=== PATIENT | female | born 1940 | race Caucasian/White ===

== ENCOUNTER 2017-05-30 13:28 | Inpatient (IN) | payer MEDICARE, MEDICAID ==
[~2017-05-30] VITALS: Ht 154.9 cm; Wt 63.5 kg
[~2017-05-30 13:28] MED LIST: BENA10TA2 PO; BENZ1TAB7 PO; CARV12.52 PO; CELE200C PO; DIVA500T2 PO; FOLI1TAB16 PO; IBUP-1955 PO; LORA1TAB PO; OLAN10TA3 PO; THIA100T70 PO
[2017-05-30] MEDS ORDERED: OLANZAPINE 5 MG TABLET ONE (14:28)
[2017-05-30] MEDS ORDERED: HYDROCODONE/APAP 10/325MG 1 EA TABLET ONE (14:28)
[2017-05-30] MEDS ORDERED: ONDANSETRON 4 MG TAB.RAPDIS ONE (14:28)
[2017-05-30] MEDS ORDERED: HYDROCODONE/APAP 10/325MG 1 EA TABLET PO ONE (14:30)
[2017-05-30] MEDS ORDERED: ONDANSETRON 4 MG TAB.RAPDIS SL ONE (14:30)
[2017-05-30] MEDS ORDERED: OLANZAPINE 5 MG TABLET PO ONE (14:30)
[2017-05-30 14:34] LABS: BASOPHILS # (AUTO) 0.2 /CMM (0.0-0.2); BASOPHILS % (AUTO) 2.1 % (0.0-2.0); EOSINOPHILS % (AUTO) 0.2 % (0.0-6.0); HEMATOCRIT 37 % (33-45); HEMOGLOBIN 12.5 g/dL (11.5-14.8); LYMPHOCYTES # (AUTO) 1.3 /CMM (0.8-4.8); LYMPHOCYTES % (AUTO) 16.2 % (20.0-44.0); MEAN CORPUSCULAR HEMOGLOBIN 30 PG (26.0-33.0); MEAN CORPUSCULAR HGB CONC 34 g/dl (31.0-36.0); MEAN CORPUSCULAR VOLUME 89 fL (82-100); MONOCYTES # (AUTO) 0.8 /CMM (0.1-1.30); MONOCYTES % (AUTO) 9.7 % (2.0-12.0); NEUTROPHILS # (AUTO) 5.6 /CMM (1.8-8.9); NEUTROPHILS % (AUTO) 71.8 % (43.0-81.0); PLATELET COUNT (AUTO) 293 /CMM (150-450); RDW COEFFICIENT OF VARIATION 13.4 (11.5-15.0); RED BLOOD CELL COUNT(AUTO) 4.15 MIL/uL (4.0-5.2); WHITE BLOOD COUNT (AUTO) 7.9 K/uL (4.3-11.0)
[2017-05-30 14:48] LABS: ALANINE AMINOTRANSFERASE 13 U/L (12-78); ALBUMIN 3.7 g/dL (3.4-5.0); ALCOHOL, BLOOD 4 mg/dL (0-0); ALKALINE PHOSPHATASE 91 U/L (46-116); ASPARTATE AMINOTRANSFERASE 20 U/L (15-37); BILIRUBIN,DIRECT 0.1 mg/dL (0.0-0.2); BILIRUBIN,TOTAL 0.6 mg/dL (0.2-1.0); CALCIUM, SERUM 9.3 mg/dL (8.5-10.1); CARBON DIOXIDE 25 mmol/L (21-32); CHLORIDE 105 mmol/L (98-107); CREATININE 0.6 mg/dL (0.6-1.3); GLUCOSE 125 mg/dL (74-106); POTASSIUM 3.7 mmol/L (3.5-5.1); SODIUM SERUM 142 mmol/L (136-145); TOTAL PROTEIN, SERUM 6.9 g/dL (6.4-8.2); UREA NITROGEN, BLOOD 16 mg/dL (7-18)
[2017-05-30 14:49] LABS: ACETAMINOPHEN 0 ug/ml (10-30); SALICYLATE 0.9 mg/dL (2.8-20.0)
[2017-05-30] MEDS ORDERED: LORAZEPAM 1 MG TABLET ONE (15:27)
[2017-05-30] MEDS ORDERED: LORAZEPAM 1 MG TABLET PO ONE (15:30)
[2017-05-30] MEDS ORDERED: ASPI-992 PO (17:00)
[2017-05-30] MEDS ORDERED: FAMO-131 PO (17:00)
[2017-05-30] MEDS ORDERED: DULO60CA45 PO (17:00)
[2017-05-30] MEDS ORDERED: FERR-58 PO (17:00)
[2017-05-30] MEDS ORDERED: CLON0.1T PO (17:00)
[2017-05-30] MEDS ORDERED: HYDR-4076 PO (17:00)
[2017-05-30] MEDS ORDERED: SENN-18 PO (17:00)
[2017-05-30] MEDS ORDERED: PANT40TA4 PO (17:00)
[2017-05-30 18:54] VITALS: BP 128/87
[2017-05-30] MEDS ORDERED: MAGNESIUM HYDROXIDE 30 ML UDC PO PRN (19:00)
[2017-05-30] MEDS ORDERED: MAG HYDROX/AL HYDROX/SIMETH 30 ML UDC PO PRN (19:00)
[2017-05-30] MEDS: LORAZEPAM 0.5 MG TABLET PO PRN (20:47)
[2017-05-30 20:59] VITALS: BP 151/54
[2017-05-31] MEDS: TEMAZEPAM 7.5 MG CAPSULE PO PRN ×2 (00:06→21:34)
[2017-05-31 08:00] VITALS: BP 144/78
[2017-05-31] MEDS: ASPIRIN 325 MG TABLET PO SCH (08:30)
[2017-05-31] MEDS: hydrALAZINE HCL 25 MG TABLET PO SCH ×3 (08:31→17:08)
[2017-05-31] MEDS: FOLIC ACID 1 MG TABLET PO SCH (08:31)
[2017-05-31] MEDS: SENNOSIDES 8.6 MG TABLET PO SCH (08:31)
[2017-05-31] MEDS: FAMOTIDINE (20 MG) 20 MG TABLET PO SCH (08:31)
[2017-05-31] MEDS: PANTOPRAZOLE 40 MG TABLET.DR PO SCH (08:31)
[2017-05-31] MEDS: FERROUS SULFATE (325 MG) 325 MG/TAB TABLET PO SCH ×3 (08:31→17:08)
[2017-05-31 09:55] LABS: ALANINE AMINOTRANSFERASE 18 U/L (12-78); ALBUMIN 3.6 g/dL (3.4-5.0); ALKALINE PHOSPHATASE 92 U/L (46-116); ASPARTATE AMINOTRANSFERASE 20 U/L (15-37); BILIRUBIN,TOTAL 0.4 mg/dL (0.2-1.0); CARBON DIOXIDE 31 mmol/L (21-32); CHLORIDE 106 mmol/L (98-107); CREATININE 0.6 mg/dL (0.6-1.3); GLUCOSE 105 mg/dL (74-106); POTASSIUM 4.1 mmol/L (3.5-5.1); SODIUM SERUM 143 mmol/L (136-145); UREA NITROGEN, BLOOD 16 mg/dL (7-18)
[2017-05-31] MEDS: LORAZEPAM 0.5 MG TABLET PO PRN (11:51)
[2017-05-31 12:58] LABS: CHOLESTEROL 176 mg/dL (<200); HDL CHOLESTEROL 77 mg/dL (40-60); LDL 88 mg/dL (0-99); TRIGLYCERIDES 64 mg/dL (30-150)
[2017-05-31] MEDS: ACETAMINOPHEN 325 MG TABLET PO PRN ×2 (13:47→19:39)
[2017-05-31] MEDS: OLANZAPINE 10 MG TABLET PO SCH ×2 (14:30→17:07)
[2017-05-31] MEDS ORDERED: OLANZAPINE 10 MG VIAL IM STA (14:39)
[2017-05-31 16:09] VITALS: BP 157/84
[2017-05-31] MEDS: CLONIDINE HCL 0.1 MG TABLET PO PRN (19:40)
[2017-05-31 19:46] VITALS: BP 166/75
[2017-06-01] MEDS: ACETAMINOPHEN 325 MG TABLET PO PRN ×3 (04:47→23:45)
[2017-06-01 08:00] VITALS: BP 152/78
[2017-06-01] MEDS: ASPIRIN 325 MG TABLET PO SCH (09:43)
[2017-06-01] MEDS: hydrALAZINE HCL 25 MG TABLET PO SCH ×3 (09:44→16:34)
[2017-06-01] MEDS: FERROUS SULFATE (325 MG) 325 MG/TAB TABLET PO SCH ×3 (09:44→16:35)
[2017-06-01] MEDS: OLANZAPINE 10 MG TABLET PO SCH ×2 (09:44→16:34)
[2017-06-01] MEDS: DULOXETINE HCL 30 MG CAPSULE.DR PO SCH (09:44)
[2017-06-01] MEDS: PANTOPRAZOLE 40 MG TABLET.DR PO SCH (09:45)
[2017-06-01] MEDS: FOLIC ACID 1 MG TABLET PO SCH (09:45)
[2017-06-01] MEDS: FAMOTIDINE (20 MG) 20 MG TABLET PO SCH (09:45)
[2017-06-01] MEDS: SENNOSIDES 8.6 MG TABLET PO SCH (09:45)
[2017-06-01] MEDS: HYDROCODONE/APAP 5/325MG 1 EACH TABLET PO PRN ×2 (13:13→19:49)
[2017-06-01] MEDS: LORAZEPAM 0.5 MG TABLET PO PRN (14:25)
[2017-06-01 16:00] VITALS: BP 145/71
[2017-06-01 20:00] VITALS: BP 149/80
[2017-06-01] MEDS: TEMAZEPAM 7.5 MG CAPSULE PO PRN (21:33)
[2017-06-02 08:00] VITALS: BP 185/75
[2017-06-02] MEDS: FOLIC ACID 1 MG TABLET PO SCH (08:36)
[2017-06-02] MEDS: OLANZAPINE 10 MG TABLET PO SCH ×2 (08:36→17:09)
[2017-06-02] MEDS: FERROUS SULFATE (325 MG) 325 MG/TAB TABLET PO SCH ×3 (08:37→17:09)
[2017-06-02] MEDS: ASPIRIN 325 MG TABLET PO SCH (08:37)
[2017-06-02] MEDS: FAMOTIDINE (20 MG) 20 MG TABLET PO SCH (08:37)
[2017-06-02] MEDS: hydrALAZINE HCL 25 MG TABLET PO SCH ×3 (08:37→17:09)
[2017-06-02] MEDS: SENNOSIDES 8.6 MG TABLET PO SCH (08:37)
[2017-06-02] MEDS: PANTOPRAZOLE 40 MG TABLET.DR PO SCH (08:38)
[2017-06-02] MEDS: DULOXETINE HCL 30 MG CAPSULE.DR PO SCH (08:38)
[2017-06-02] MEDS: LORAZEPAM 0.5 MG TABLET PO PRN ×2 (08:38→15:17)
[2017-06-02] MEDS: HYDROCODONE/APAP 5/325MG 1 EACH TABLET PO PRN ×3 (09:50→23:33)
[2017-06-02] MEDS: ACETAMINOPHEN 325 MG TABLET PO PRN ×2 (14:27→20:52)
[2017-06-02 16:08] VITALS: BP 156/88
[2017-06-02 20:00] VITALS: BP 157/99
[2017-06-02] MEDS: TEMAZEPAM 7.5 MG CAPSULE PO PRN (20:52)
[2017-06-03 08:08] VITALS: BP 157/96
[2017-06-03] MEDS: LORAZEPAM 0.5 MG TABLET PO PRN ×2 (08:59→15:04)
[2017-06-03] MEDS: SENNOSIDES 8.6 MG TABLET PO SCH ×2 (08:59→18:00)
[2017-06-03] MEDS: ASPIRIN 325 MG TABLET PO SCH (08:59)
[2017-06-03] MEDS: PANTOPRAZOLE 40 MG TABLET.DR PO SCH (09:00)
[2017-06-03] MEDS: FERROUS SULFATE (325 MG) 325 MG/TAB TABLET PO SCH ×3 (09:00→18:00)
[2017-06-03] MEDS: OLANZAPINE 10 MG TABLET PO SCH ×2 (09:00→18:00)
[2017-06-03] MEDS: hydrALAZINE HCL 25 MG TABLET PO SCH ×3 (09:00→18:01)
[2017-06-03] MEDS: FAMOTIDINE (20 MG) 20 MG TABLET PO SCH (09:00)
[2017-06-03] MEDS: DULOXETINE HCL 30 MG CAPSULE.DR PO SCH (09:00)
[2017-06-03] MEDS: FOLIC ACID 1 MG TABLET PO SCH (12:25)
[2017-06-03] MEDS: HYDROCODONE/APAP 5/325MG 1 EACH TABLET PO PRN ×2 (12:26→21:05)
[2017-06-03] MEDS: ACETAMINOPHEN 325 MG TABLET PO PRN (15:04)
[2017-06-03 16:06] VITALS: BP 153/98
[2017-06-03 20:00] VITALS: BP 143/73
[2017-06-03] MEDS: TEMAZEPAM 7.5 MG CAPSULE PO PRN (21:38)
[2017-06-04 00:01] VITALS: BP 123/58
[2017-06-04] MEDS: HYDROCODONE/APAP 5/325MG 1 EACH TABLET PO PRN ×2 (06:57→14:29)
[2017-06-04] MEDS: FAMOTIDINE (20 MG) 20 MG TABLET PO SCH (08:27)
[2017-06-04] MEDS: PANTOPRAZOLE 40 MG TABLET.DR PO SCH (08:27)
[2017-06-04] MEDS: DULOXETINE HCL 30 MG CAPSULE.DR PO SCH (08:28)
[2017-06-04] MEDS: FERROUS SULFATE (325 MG) 325 MG/TAB TABLET PO SCH ×3 (08:28→16:43)
[2017-06-04] MEDS: FOLIC ACID 1 MG TABLET PO SCH (08:29)
[2017-06-04] MEDS: ASPIRIN 325 MG TABLET PO SCH (08:29)
[2017-06-04] MEDS: SENNOSIDES 8.6 MG TABLET PO SCH (08:29)
[2017-06-04] MEDS: OLANZAPINE 10 MG TABLET PO SCH ×2 (08:29→16:43)
[2017-06-04] MEDS: hydrALAZINE HCL 25 MG TABLET PO SCH ×3 (10:17→16:43)
[2017-06-04] MEDS: LORAZEPAM 0.5 MG TABLET PO PRN ×2 (10:41→20:41)
[2017-06-04 13:07] VITALS: BP 157/83
[2017-06-04 16:07] VITALS: BP 156/88
[2017-06-04 19:50] VITALS: BP 168/85
[2017-06-04] MEDS: TEMAZEPAM 7.5 MG CAPSULE PO PRN (22:22)
[2017-06-05 03:29] VITALS: BP 142/78
[2017-06-05 08:00] VITALS: BP 168/102
[2017-06-05] MEDS: OLANZAPINE 10 MG TABLET PO SCH ×2 (08:57→16:10)
[2017-06-05] MEDS: DULOXETINE HCL 30 MG CAPSULE.DR PO SCH (08:58)
[2017-06-05] MEDS: FOLIC ACID 1 MG TABLET PO SCH (08:58)
[2017-06-05] MEDS: FERROUS SULFATE (325 MG) 325 MG/TAB TABLET PO SCH ×3 (08:58→16:11)
[2017-06-05] MEDS: hydrALAZINE HCL 25 MG TABLET PO SCH ×3 (08:58→16:10)
[2017-06-05] MEDS: PANTOPRAZOLE 40 MG TABLET.DR PO SCH (08:58)
[2017-06-05] MEDS: ASPIRIN 325 MG TABLET PO SCH (08:58)
[2017-06-05] MEDS: FAMOTIDINE (20 MG) 20 MG TABLET PO SCH (08:59)
[2017-06-05] MEDS: SENNOSIDES 8.6 MG TABLET PO SCH (08:59)
[2017-06-05] MEDS: CLONIDINE HCL 0.1 MG TABLET PO PRN (09:03)
[2017-06-05] MEDS: HYDROCODONE/APAP 5/325MG 1 EACH TABLET PO PRN ×2 (09:03→16:45)
[2017-06-05] MEDS: LORAZEPAM 0.5 MG TABLET PO PRN ×2 (12:11→18:44)
[2017-06-05 16:00] VITALS: BP 138/74
[2017-06-05 21:46] VITALS: BP 128/69
[2017-06-05] MEDS: TEMAZEPAM 7.5 MG CAPSULE PO PRN (21:47)
[2017-06-06 08:00] VITALS: BP 162/80
[2017-06-06] MEDS: FAMOTIDINE (20 MG) 20 MG TABLET PO SCH (08:26)
[2017-06-06] MEDS: PANTOPRAZOLE 40 MG TABLET.DR PO SCH (08:26)
[2017-06-06] MEDS: ASPIRIN 325 MG TABLET PO SCH (08:27)
[2017-06-06] MEDS: hydrALAZINE HCL 25 MG TABLET PO SCH ×3 (08:27→16:41)
[2017-06-06] MEDS: FOLIC ACID 1 MG TABLET PO SCH (08:27)
[2017-06-06] MEDS: FERROUS SULFATE (325 MG) 325 MG/TAB TABLET PO SCH ×3 (08:28→16:37)
[2017-06-06] MEDS: DULOXETINE HCL 30 MG CAPSULE.DR PO SCH (08:28)
[2017-06-06] MEDS: SENNOSIDES 8.6 MG TABLET PO SCH (08:28)
[2017-06-06] MEDS: OLANZAPINE 10 MG TABLET PO SCH ×2 (08:28→16:37)
[2017-06-06] MEDS: LORAZEPAM 0.5 MG TABLET PO PRN ×2 (11:59→21:04)
[2017-06-06 16:00] VITALS: BP 160/88
[2017-06-06] MEDS: HYDROCODONE/APAP 5/325MG 1 EACH TABLET PO PRN (19:21)
[2017-06-06 19:41] VITALS: BP 144/67
[2017-06-06] MEDS: TEMAZEPAM 7.5 MG CAPSULE PO PRN (22:54)
[2017-06-07] MEDS: HYDROCODONE/APAP 5/325MG 1 EACH TABLET PO PRN (06:09)
[2017-06-07 08:00] VITALS: BP 180/91
[2017-06-07] MEDS: FAMOTIDINE (20 MG) 20 MG TABLET PO SCH (08:05)
[2017-06-07] MEDS: PANTOPRAZOLE 40 MG TABLET.DR PO SCH (08:05)
[2017-06-07] MEDS: hydrALAZINE HCL 25 MG TABLET PO SCH ×2 (08:06→12:26)
[2017-06-07] MEDS: ASPIRIN 325 MG TABLET PO SCH (08:06)
[2017-06-07] MEDS: SENNOSIDES 8.6 MG TABLET PO SCH (08:06)
[2017-06-07] MEDS: OLANZAPINE 10 MG TABLET PO SCH (08:06)
[2017-06-07] MEDS: FERROUS SULFATE (325 MG) 325 MG/TAB TABLET PO SCH ×2 (08:06→12:26)
[2017-06-07] MEDS: FOLIC ACID 1 MG TABLET PO SCH (08:06)
[2017-06-07] MEDS: DULOXETINE HCL 30 MG CAPSULE.DR PO SCH (08:07)
[2017-06-07 08:08] LABS: CARBON DIOXIDE 30 mmol/L (21-32); CHLORIDE 108 mmol/L (98-107); CREATININE 0.5 mg/dL (0.6-1.3); GLUCOSE 116 mg/dL (74-106); POTASSIUM 3.6 mmol/L (3.5-5.1); SODIUM SERUM 145 mmol/L (136-145); UREA NITROGEN, BLOOD 23 mg/dL (7-18)
[2017-06-07 08:21] LABS: BASOPHILS % (AUTO) 0.2 % (0.0-2.0); EOSINOPHILS # (AUTO) 0.1 /CMM (0.0-0.7); EOSINOPHILS % (AUTO) 1.7 % (0.0-6.0); HEMATOCRIT 39 % (33-45); LYMPHOCYTES # (AUTO) 1.2 /CMM (0.8-4.8); LYMPHOCYTES % (AUTO) 16.6 % (20.0-44.0); MEAN CORPUSCULAR HEMOGLOBIN 31 PG (26.0-33.0); MEAN CORPUSCULAR HGB CONC 33 g/dl (31.0-36.0); MEAN CORPUSCULAR VOLUME 92 fL (82-100); MONOCYTES # (AUTO) 0.5 /CMM (0.1-1.30); MONOCYTES % (AUTO) 6.8 % (2.0-12.0); NEUTROPHILS # (AUTO) 5.5 /CMM (1.8-8.9); NEUTROPHILS % (AUTO) 74.7 % (43.0-81.0); PLATELET COUNT (AUTO) 257 /CMM (150-450); RDW COEFFICIENT OF VARIATION 14.1 (11.5-15.0); RED BLOOD CELL COUNT(AUTO) 4.22 MIL/uL (4.0-5.2); WHITE BLOOD COUNT (AUTO) 7.3 K/uL (4.3-11.0)
[2017-06-07 10:35] VITALS: BP 145/79
[2017-06-07 12:26] VITALS: BP 151/68
[2017-06-07] MEDS: LORAZEPAM 0.5 MG TABLET PO PRN (12:26)
== END 2017-06-07 14:30 | disposition home health service (06) | DRG 885 ==
LOC: ER 13:31 → GPS 17:36
PROVIDERS: ADMIT Psychiatry & Neurology Psychosomatic Medicine; ATTEND Internal Medicine
DX: F25.0 Schizoaffective disorder, bipolar type (principal); F03.90 Unspecified dementia, unspecified severity, without behavioral disturbance, psychotic disturbance, mood disturbance, and anxiety; F29 Unspecified psychosis not due to a substance or known physiological condition; E03.9 Hypothyroidism, unspecified; F41.9 Anxiety disorder, unspecified; I10 Essential (primary) hypertension; K21.9 Gastro-esophageal reflux disease without esophagitis; Z79.899 Other long term (current) drug therapy; Z82.3 Family history of stroke; Z96.642 Presence of left artificial hip joint; G89.29 Other chronic pain; Z73.6 Limitation of activities due to disability
CPT/HCPCS: 36415; 72192-TC; 80048-TC; 80053-TC; 80061-TC; 80076-TC; 85025-TC; 87081-TC; A4606; G0480; J3490; Q0162; Z7610

== ENCOUNTER 2017-09-05 15:37 | Emergency (ER) | payer MEDICARE, MEDICAID ==
[~2017-09-05] VITALS: Ht 157.5 cm; Wt 63.5 kg
[~2017-09-05 15:37] MED LIST changes: +ASPI-992 PO; -BENA10TA2 PO; -BENZ1TAB7 PO; -CARV12.52 PO; -CELE200C PO; +CLON0.1T PO; -DIVA500T2 PO; +DULO60CA45 PO; +FAMO-131 PO; +FERR325T23 PO; +HYDR-4076 PO; -IBUP-1955 PO; -LORA1TAB PO; -OLAN10TA3 PO; +PANT40TA4 PO; +SENN-18 PO; -THIA100T70 PO
[2017-09-05 15:50] VITALS: BP 152/79
== END 2017-09-05 18:55 | disposition home or self-care (01) ==
LOC: ER 15:38
DX: R60.0 Localized edema (principal); I10 Essential (primary) hypertension; G89.29 Other chronic pain; F32.9 Major depressive disorder, single episode, unspecified; F41.9 Anxiety disorder, unspecified; E03.9 Hypothyroidism, unspecified; F17.200 Nicotine dependence, unspecified, uncomplicated; Z79.82 Long term (current) use of aspirin
CPT/HCPCS: 93970-TC; A4606; Z7610

== ENCOUNTER 2017-09-27 09:37 | Inpatient (IN) | payer MEDICARE, MEDICAID ==
[~2017-09-27] VITALS: Ht 165.1 cm; Wt 67.6 kg
--- NOTE | 2017-09-27 09:38 | NUR ---
[id number] FROM HOME: ANXIETY/PANIC ATTACK. NAD NOTED. PT AAO X3, VERY ANXIOUS, VSS. RR EVEN AND UNLABORED. PENDING MD HUNTLEY.
[2017-09-27] MEDS ORDERED: IV NS 0.9% 1,000 ML BAG IV ONE (10:00)
[2017-09-27 10:08] LABS: BASOPHILS # (AUTO) 0.3 /CMM (0.0-0.2); BASOPHILS % (AUTO) 4.2 % (0.0-2.0); EOSINOPHILS % (AUTO) 0.1 % (0.0-6.0); HEMATOCRIT 38 % (33-45); HEMOGLOBIN 12.8 g/dL (11.5-14.8); LYMPHOCYTES # (AUTO) 0.6 /CMM (0.8-4.8); LYMPHOCYTES % (AUTO) 10.2 % (20.0-44.0); MEAN CORPUSCULAR HEMOGLOBIN 31 PG (26.0-33.0); MEAN CORPUSCULAR HGB CONC 34 g/dl (31.0-36.0); MEAN CORPUSCULAR VOLUME 92 fL (82-100); MONOCYTES # (AUTO) 0.2 /CMM (0.1-1.30); MONOCYTES % (AUTO) 3.5 % (2.0-12.0); NEUTROPHILS # (AUTO) 5.1 /CMM (1.8-8.9); PLATELET COUNT (AUTO) 233 /CMM (150-450); RDW COEFFICIENT OF VARIATION 13.6 (11.5-15.0); RED BLOOD CELL COUNT(AUTO) 4.11 MIL/uL (4.0-5.2); WHITE BLOOD COUNT (AUTO) 6.2 K/uL (4.3-11.0)
[2017-09-27 10:24] LABS: CALCIUM, SERUM 8.7 mg/dL (8.5-10.1); CARBON DIOXIDE 26 mmol/L (21-32); CHLORIDE 106 mmol/L (98-107); CREATININE 0.5 mg/dL (0.6-1.3); GLUCOSE 108 mg/dL (74-106); POTASSIUM 3.7 mmol/L (3.5-5.1); SODIUM SERUM 141 mmol/L (136-145); UREA NITROGEN, BLOOD 12 mg/dL (7-18)
[2017-09-27 10:30] LABS: ACETAMINOPHEN 0 ug/ml (10-30); ALANINE AMINOTRANSFERASE 25 U/L (12-78); ALBUMIN 3.7 g/dL (3.4-5.0); ALCOHOL, BLOOD < 3 mg/dL (0-0); ALKALINE PHOSPHATASE 112 U/L (46-116); ASPARTATE AMINOTRANSFERASE 24 U/L (15-37); BILIRUBIN,DIRECT 0.1 mg/dL (0.0-0.2); BILIRUBIN,TOTAL 0.7 mg/dL (0.2-1.0); SALICYLATE 1.6 mg/dL (2.8-20.0)
[2017-09-27] MEDS ORDERED: LORAZEPAM INJ 2 MG/ML VIAL ONE (10:34)
[2017-09-27] MEDS ORDERED: LORAZEPAM INJ 2 MG/ML VIAL IV ONE (11:00)
--- NOTE | 2017-09-27 11:08 | NUR ---
CALLED [facility] FOR PSYCH EVAL, NO ANSWER, LEFT MESSAGE ON VOICEMAIL
--- NOTE | 2017-09-27 11:25 | NUR ---
CALLED [facility] FOR PSYCH EVAL, NO ANSWER, LEFT ANOTHER VOICEMAIL
[2017-09-27] MEDS ORDERED: TEMA15CA PO (11:38)
[2017-09-27] MEDS ORDERED: GABA-534 PO (11:38)
[2017-09-27] MEDS ORDERED: LOSA25TA13 PO (11:38)
[2017-09-27] MEDS ORDERED: OLAN10TA3 PO (11:38)
[2017-09-27] MEDS ORDERED: LORA1TAB PO (11:38)
--- NOTE | 2017-09-27 13:39 | NUR ---
GPS 211-2
--- NOTE | 2017-09-27 13:51 | NUR ---
REPORT GIVEN TO XAVIER LING FOR BRI
[2017-09-27] MEDS ORDERED: MAG HYDROX/AL HYDROX/SIMETH 30 ML UDC ONE (13:53)
[2017-09-27] MEDS ORDERED: MAG HYDROX/AL HYDROX/SIMETH 30 ML UDC PO ONE (14:00)
[2017-09-27 16:00] VITALS: BP_SYST 123; BP_SYST 174; BP_DIAS 72; BP_DIAS 74
--- NOTE | 2017-09-27 16:36 | NUR ---
ADMISSION NOTE: PATIENT ADMITTED TO GPS AT 1345. PATIENT CAME FROM HOME TO ER. PATIENT CAME INTO THE ER BECAUSE SHE WAS FEELING ANXIOUS AND STATES THAT SHE LOST HER MEDICATIONS. THE PATIENT IS CONFUSED AND IS A BAD HISTORIAN. THE PATIENT IS ALERT AND ORIENTED X 1. DR. CH WAS NOTIFIED OF ADMISSION AND ORDERS PUT IN. CARLOS MADE AWARE OF ADMISSION. BELONGINGS AND CONTRABAND LOCKED UP. PATIENT UNABLE TO SIGN PAPERS. SKIN ASSESSMENT DONE AND CLEAR. POLICIES AND PROCEDURES EXPLAINED TO THE PATIENT. SAFETY CHECK DONE. SHOWERED PATIENT.
[2017-09-27] MEDS ORDERED: MAG HYDROX/AL HYDROX/SIMETH 30 ML UDC PO PRN (17:00)
[2017-09-27] MEDS ORDERED: MAGNESIUM HYDROXIDE 30 ML UDC PO PRN (17:00)
--- NOTE | 2017-09-27 19:30 | NUR ---
GPS RN NOTE, RECEIVED PATIENT AWAKE AND IN BED, PATIENT HAS NO COMPLAINTS OR S/S OF PAIN AT THIS TIME. PATIENT IS DISPLAYING NO S/S OF APPARENT DISTRESS AT THIS TIME. PATIENT BREATHING IS UNLABORED WITH EQUAL RISE AND FALL OF THE CHEST. PATIENT IS ALERT AND ORIENTED X 1 ON ROOM AIR WITH A SPO2 OF 95%. PATIENT IS COMPLIANT WITH MEDICATION, ANXIOUS AT TIMES, PARANOID, COOPERATIVE, IS HYPERVERBAL, AND NEEDS REORIENTATION. PATIENT DENIES SUICIDE IDEATIONS AND HOMICIDAL IDEATIONS AT THIS TIME. PATIENT ASSISTED WITH TURNING AND REPOSITIONING Q2HR AND PRN FOR COMFORT AND CIRCULATION. PATIENT HAS NO NEEDS AT THIS TIME. PATIENT EDUCATED ON THE USE OF THE CALL CANTU. PATIENT SIDE RAILS ARE UP X 2, BED IS LOCKED AND LOW, AND I WILL CONTINUE TO MONITOR THIS PATIENT Q 15 MIN WITH THE HELP OF STAFF.
[2017-09-27 19:50] VITALS: BP 197/94
--- NOTE | 2017-09-27 20:16 | NUR ---
GPS RN NOTE, PATIENT VITAL SIGNS ARE FOLLOWS B/P 197/94 TEMP 99, RES 16, PULSE 57, SPO2 97%. PATIENT ALSO NEEDS A MED RECON. PAGED [facility] [employer] [facility] AND INFORMED DR PYLE OF MY FINDINGS. DR PYLE ORDERED TO GIVE HYDRALAZINE 25 MG PO ONCE AND TO RETAKE THIS PATIENT BLOOD PRESSURE IN ONE HOUR. DR PYLE ORDERED TO GIVE CLONIDINE HCL 0.1 MG PO Q6HR PRN IF SYSTOLIC BLOOD PRESSURE IS GREATER THAN 160. DR PYLE SAID HE WOULD DO THE MED RECON WHEN HAS A CHANCE. ALL ORDERS NOTED AND CARRIED OUT WILL CONTINUE TO MONITOR THIS PATIENT.
--- NOTE | 2017-09-27 20:22 | NUR ---
GPS RN NOTE, PATIENT VITAL SIGNS ARE FOLLOWS B/P 197/94 TEMP 99, RES 16, PULSE 57, SPO2 97%. GAVE HYDRALAZINE 25 MG PO ONCE AND I WILL RETAKE THIS PATIENT BLOOD PRESSURE IN ONE HOUR. WILL CONTINUE TO MONITOR THIS PATIENT.
[2017-09-27] MEDS ORDERED: hydrALAZINE HCL 25 MG TABLET PO ONE (20:30)
[2017-09-27 21:19] VITALS: BP 162/74
[2017-09-27] MEDS: CLONIDINE HCL 0.1 MG TABLET PO PRN (21:24)
--- NOTE | 2017-09-27 21:24 | NUR ---
GPS RN NOTE, PATIENT VITAL SIGNS ARE FOLLOWS B/P 161/74, TEMP 98.8, RES 16, PULSE 70, SPO2 97%. GAVE CLONIDINE HCL 0.1 MG PO Q6HR PRN. WILL CONTINUE TO MONITOR THIS PATIENT.
[2017-09-27] MEDS: ACETAMINOPHEN 325 MG TABLET PO PRN (21:27)
--- NOTE | 2017-09-27 21:27 | NUR ---
GPS RN NOTE, PATIENT HAS A COMPLAINT OF CHRONIC RIGHT HIP PAIN AT 4 OUT 10 ON THE PAIN SCALE AND IS REQUESTING TYLENOL AT THIS TIME. PATIENT VITAL SIGNS ARE STABLE GAVE TYLENOL 650MG PO Q6HR PRN ORDERED. WILL REASSESS PAIN AND I WILL CONTINUE TO MONITOR THIS PATIENT.
[2017-09-27] MEDS ORDERED: CLONIDINE HCL 0.1 MG TABLET PO PRN (23:00)
[2017-09-27 23:19] VITALS: BP 139/61
[2017-09-27] MEDS: TEMAZEPAM 7.5 MG CAPSULE PO PRN (23:50)
--- NOTE | 2017-09-27 23:50 | NUR ---
GPS RN NOTE, PATIENT HAS A COMPLAINT OF NOT BEING ABLE TO SLEEP AND IS REQUESTING RESTORIL 7.5MG PO HS. PATIENT VITAL SIGNS ARE STABLE. GAVE RESTORIL 7.5MG PO HS ORDERED. WILL REASSESS FOR [place] AND I WILL CONTINUE TO MONITOR THIS PATIENT.
[2017-09-28] MEDS ORDERED: Z GUARD REMEDY 2 OZ OINT TP PRN (05:30)
[2017-09-28] MEDS: ACETAMINOPHEN 325 MG TABLET PO PRN (05:45)
[2017-09-28 08:19] VITALS: BP 150/80
[2017-09-28] MEDS: FERROUS SULFATE (325 MG) 325 MG/TAB TABLET PO SCH ×3 (08:22→16:59)
[2017-09-28] MEDS: FOLIC ACID 1 MG TABLET PO SCH (08:23)
[2017-09-28] MEDS: FAMOTIDINE (20 MG) 20 MG TABLET PO SCH (08:23)
[2017-09-28] MEDS: hydrALAZINE HCL 25 MG TABLET PO SCH ×3 (08:23→17:00)
[2017-09-28] MEDS: ASPIRIN 325 MG TABLET PO PRN ×2 (08:23→19:29)
[2017-09-28] MEDS: SENNOSIDES 8.6 MG TABLET PO SCH (08:23)
[2017-09-28] MEDS ORDERED: OLANZAPINE 10 MG TABLET PO SCH (09:00)
[2017-09-28] MEDS ORDERED: LORAZEPAM 1 MG TABLET PO SCH (09:00)
--- NOTE | 2017-09-28 10:00 | NUR ---
GPS/RN PATIENT IS ANXIOUS AND CRYING UNCONTROLLABLY, ADMINISTERED ATIVAN 0.5 MG PO, WILL CONTINUE TO MONITOR.
[2017-09-28] MEDS: LORAZEPAM 0.5 MG TABLET PO PRN ×2 (10:01→14:23)
[2017-09-28] MEDS: DULOXETINE HCL 30 MG CAPSULE.DR PO SCH (14:23)
[2017-09-28] MEDS: OLANZAPINE 5 MG TABLET PO SCH ×2 (14:23→16:59)
--- NOTE | 2017-09-28 14:25 | NUR ---
GPS/RN PATIENT IS ANXIOUS AND AGITATED, ADMINISTERED ATIVAN 0.5 MG PO, WILL CONTINUE TO MONITOR.
[2017-09-28 14:50] VITALS: BP 152/75
[2017-09-28 16:06] VITALS: BP 159/91
[2017-09-28 16:37] LABS: ALANINE AMINOTRANSFERASE 27 U/L (12-78); ALBUMIN 3.6 g/dL (3.4-5.0); ALKALINE PHOSPHATASE 97 U/L (46-116); ASPARTATE AMINOTRANSFERASE 22 U/L (15-37); BILIRUBIN,TOTAL 0.6 mg/dL (0.2-1.0); CALCIUM, SERUM 8.6 mg/dL (8.5-10.1); CARBON DIOXIDE 26 mmol/L (21-32); CHLORIDE 106 mmol/L (98-107); CREATININE 0.4 mg/dL (0.6-1.3); GLUCOSE 93 mg/dL (74-106); POTASSIUM 3.5 mmol/L (3.5-5.1); SODIUM SERUM 141 mmol/L (136-145); TOTAL PROTEIN, SERUM 6.7 g/dL (6.4-8.2); UREA NITROGEN, BLOOD 16 mg/dL (7-18)
[2017-09-28 16:43] LABS: CHOLESTEROL 183 mg/dL (<200); HDL CHOLESTEROL 92 mg/dL (40-60); LDL 95 mg/dL (0-99); TRIGLYCERIDES 86 mg/dL (30-150)
[2017-09-28] MEDS: GABAPENTIN 300 MG CAPSULE PO SCH ×2 (16:59→21:59)
[2017-09-28 20:00] VITALS: BP 131/75
[2017-09-28] MEDS: TEMAZEPAM 7.5 MG CAPSULE PO PRN (21:59)
[2017-09-28] MEDS ORDERED: TEMAZEPAM 15 MG CAPSULE PO SCH (23:00)
[2017-09-29] MEDS: ACETAMINOPHEN 325 MG TABLET PO PRN (06:47)
[2017-09-29 08:00] VITALS: BP 158/94
[2017-09-29] MEDS: FERROUS SULFATE (325 MG) 325 MG/TAB TABLET PO SCH ×3 (08:00→17:00)
[2017-09-29] MEDS: GABAPENTIN 300 MG CAPSULE PO SCH ×4 (08:00→21:51)
[2017-09-29] MEDS: OLANZAPINE 5 MG TABLET PO SCH ×2 (08:00→17:00)
[2017-09-29] MEDS: FAMOTIDINE (20 MG) 20 MG TABLET PO SCH (08:00)
[2017-09-29] MEDS: FOLIC ACID 1 MG TABLET PO SCH (08:00)
[2017-09-29] MEDS: DULOXETINE HCL 30 MG CAPSULE.DR PO SCH (08:00)
[2017-09-29] MEDS: hydrALAZINE HCL 25 MG TABLET PO SCH ×3 (08:01→17:00)
[2017-09-29] MEDS: SENNOSIDES 8.6 MG TABLET PO SCH (08:01)
[2017-09-29] MEDS: LORAZEPAM 0.5 MG TABLET PO PRN (13:59)
--- NOTE | 2017-09-29 15:13 | NUR ---
Initial Discharge Note: Pt wants to return home to [address] [facility] [address] . SW will help form a safe and proper discharge in collaboration with .
--- NOTE | 2017-09-29 15:14 | NUR ---
SW contacted pts Antelmo Russell [phone] to inform of pts tentative discharge plans. SW unable to reach pts both phone numbers were unavailable.
[2017-09-29 15:53] VITALS: BP 165/97
[2017-09-29] MEDS: CLONIDINE HCL 0.1 MG TABLET PO PRN (17:00)
[2017-09-29 20:00] VITALS: BP 123/76
[2017-09-29] MEDS: TEMAZEPAM 7.5 MG CAPSULE PO PRN (21:51)
[2017-09-30] MEDS: ASPIRIN 325 MG TABLET PO PRN (01:21)
[2017-09-30] MEDS: ACETAMINOPHEN 325 MG TABLET PO PRN ×2 (05:42→17:26)
[2017-09-30] MEDS: FAMOTIDINE (20 MG) 20 MG TABLET PO SCH (07:40)
[2017-09-30] MEDS: CLONIDINE HCL 0.1 MG TABLET PO PRN (07:41)
[2017-09-30] MEDS: FERROUS SULFATE (325 MG) 325 MG/TAB TABLET PO SCH ×3 (09:01→16:30)
[2017-09-30] MEDS: SENNOSIDES 8.6 MG TABLET PO SCH (09:01)
[2017-09-30] MEDS: GABAPENTIN 300 MG CAPSULE PO SCH ×4 (09:01→21:46)
[2017-09-30] MEDS: DULOXETINE HCL 30 MG CAPSULE.DR PO SCH (09:01)
[2017-09-30] MEDS: FOLIC ACID 1 MG TABLET PO SCH (09:01)
[2017-09-30] MEDS: OLANZAPINE 5 MG TABLET PO SCH ×2 (09:01→16:30)
[2017-09-30] MEDS: hydrALAZINE HCL 25 MG TABLET PO SCH ×3 (09:13→16:30)
[2017-09-30 09:14] VITALS: BP_SYST 145; BP_SYST 175; BP_DIAS 87; BP_DIAS 94
[2017-09-30 12:38] VITALS: BP 133/64
[2017-09-30 16:00] VITALS: BP 133/76
--- NOTE | 2017-09-30 17:29 | NUR ---
GPS/RN-NOTES PATIENT C/O RIGHT HIP PAIN AND REQUESTING FOR TYLENOL, TYLENOL 650MG P.O GIVEN PRN ORDER.
[2017-09-30] MEDS: LORAZEPAM 0.5 MG TABLET PO PRN (19:42)
[2017-09-30 20:00] VITALS: BP 147/79
[2017-09-30] MEDS: TEMAZEPAM 7.5 MG CAPSULE PO PRN (21:46)
--- NOTE | 2017-10-01 07:20 | NUR ---
GPS RN NOTES PATIENT RECEIVED RESTING INSIDE ROOM. AWAKE, ALERT AND ORIENTED, ABLE TO MAKE NEEDS KNOWN AND FOLLOW SIMPLE INSTRUCTIONS. BREATHING EVEN AND UNLABORED. NO SOB OR ACUTE DISTRESS NOTED. PATIENT CALM AND RELAXED. NO CHANGES IN LOC NOTED AT THIS TIME. WILL CONTINUE TO MONITOR. BED LOCKED AND IN LOW POSITION. BILATERAL UPPER SIDE RAILS UP AND LOCKED. CALL LIGHT WITHIN EASY REACH
[2017-10-01] MEDS: ACETAMINOPHEN 325 MG TABLET PO PRN ×2 (07:26→14:52)
[2017-10-01] MEDS: FAMOTIDINE (20 MG) 20 MG TABLET PO SCH (07:27)
--- NOTE | 2017-10-01 07:30 | NUR ---
GPS RN NOTES PATIENT WITH C/O RIGHT HIP PAIN WITH SCALE OF 3/10. GIVEN TYLENOL ORDERED PRN. WILL CONTINUE TO MONITOR
[2017-10-01 08:00] VITALS: BP 154/70
[2017-10-01] MEDS: DULOXETINE HCL 30 MG CAPSULE.DR PO SCH (08:09)
[2017-10-01] MEDS: hydrALAZINE HCL 25 MG TABLET PO SCH ×3 (08:09→16:15)
[2017-10-01] MEDS: FERROUS SULFATE (325 MG) 325 MG/TAB TABLET PO SCH ×3 (08:09→16:16)
[2017-10-01] MEDS: OLANZAPINE 5 MG TABLET PO SCH ×2 (08:09→16:16)
[2017-10-01] MEDS: FOLIC ACID 1 MG TABLET PO SCH (08:09)
[2017-10-01] MEDS: SENNOSIDES 8.6 MG TABLET PO SCH (08:09)
[2017-10-01] MEDS: GABAPENTIN 300 MG CAPSULE PO SCH ×4 (08:09→20:56)
--- NOTE | 2017-10-01 14:53 | NUR ---
GPS RN NOTES PATIENT WITH C/O LEFT HIP PAIN WITH LEVEL OF 3/10. GIVEN WITH TYLENOL ORDERED PRN. WILL CONTINUE TO MONITOR
[2017-10-01 16:00] VITALS: BP 160/86
--- NOTE | 2017-10-01 19:30 | NUR ---
RN NOTES RECEIVED PATIENT IN BED AWAKE, AO X 3, ABLE TO MAKE NEEDS KNOWN. NO ACUTE DISTRESS NOTED. DENIES ANY PAIN AT THIS TIME. PATIENT IS CALM. PATIENT AMBULATORY WITH A STEADY GAIT. SAFETY REMINDERS GIVEN. ON LOW BED WITH BILATERAL UPPER SIDE RAILS UP. CALL CANTU WITHIN EASY REACH. PATIENT ABLE TO USE. WILL CONTINUE TO MONITOR.
[2017-10-01 19:53] VITALS: BP 149/73
[2017-10-01 20:00] VITALS: BP 149/73
[2017-10-01] MEDS: LORAZEPAM 0.5 MG TABLET PO PRN (20:01)
[2017-10-01] MEDS: TEMAZEPAM 7.5 MG CAPSULE PO PRN (20:56)
[2017-10-02] MEDS: ACETAMINOPHEN 325 MG TABLET PO PRN ×2 (05:55→19:36)
[2017-10-02] MEDS: LORAZEPAM 0.5 MG TABLET PO PRN ×3 (05:56→22:27)
--- NOTE | 2017-10-02 06:09 | NUR ---
RN NOTES PATIENT AWAKE IN BED, RESPIRATIONS EVEN. NO SIGNS OF PAIN NOTED. DUE MEDS GIVEN WITH NO ASE NOTED. NEEDS ATTENDED. SAFETY PRECAUTIONS AND COMFORT MEASURES IN PLACE. WILL GIVE REPORT TO DAY SHIFT FOR CONTINUITY OF CARE.
[2017-10-02 08:00] VITALS: BP 160/92
[2017-10-02] MEDS: FERROUS SULFATE (325 MG) 325 MG/TAB TABLET PO SCH ×3 (08:09→16:12)
[2017-10-02] MEDS: ASPIRIN 325 MG TABLET PO PRN (08:10)
[2017-10-02] MEDS: OLANZAPINE 5 MG TABLET PO SCH ×2 (08:10→16:12)
[2017-10-02] MEDS: FOLIC ACID 1 MG TABLET PO SCH (08:10)
[2017-10-02] MEDS: GABAPENTIN 300 MG CAPSULE PO SCH ×4 (08:10→20:38)
[2017-10-02] MEDS: FAMOTIDINE (20 MG) 20 MG TABLET PO SCH (08:10)
[2017-10-02] MEDS: SENNOSIDES 8.6 MG TABLET PO SCH (08:10)
[2017-10-02] MEDS: hydrALAZINE HCL 25 MG TABLET PO SCH ×3 (08:10→16:12)
[2017-10-02] MEDS: DULOXETINE HCL 30 MG CAPSULE.DR PO SCH (08:10)
--- NOTE | 2017-10-02 13:16 | NUR ---
GPS/RN PATIENT IS ANXIOUS AND AGITATED, ADMINISTERED ATIVAN 0.5 MG PO, WILL CONTINUE TO MONITOR.
[2017-10-02 16:08] VITALS: BP 167/79
[2017-10-02 20:17] VITALS: BP 168/64
[2017-10-02] MEDS: TEMAZEPAM 7.5 MG CAPSULE PO PRN (21:45)
--- NOTE | 2017-10-02 22:27 | NUR ---
GPS RN NOTES: PATIENT IS ANXIOUS, PATIENT IS REQUESTING FOR ATIVAN. VSS. ADMINISTERED ATIVAN 0.5MG PO ORDERED, WILL CONTINUE TO MONITOR [id number] FOR SAFETY AND BEHAVIOR.
[2017-10-03] MEDS: ACETAMINOPHEN 325 MG TABLET PO PRN (07:02)
--- NOTE | 2017-10-03 07:02 | NUR ---
GPS RN NOTES; PATIENT C/O RIGHT HIP PAIN, ON A PAIN SCALE OF 3/10. PATIENT IS REQUESTING FOR TYLENOL. ADMINISTERED TYLENOL 650MG PO ORDERED. WILL CONTINUE TO MONITOR.
[2017-10-03 08:00] VITALS: BP 186/91
[2017-10-03] MEDS: FOLIC ACID 1 MG TABLET PO SCH (08:16)
[2017-10-03] MEDS: DULOXETINE HCL 30 MG CAPSULE.DR PO SCH (08:16)
[2017-10-03] MEDS: OLANZAPINE 5 MG TABLET PO SCH ×2 (08:16→16:42)
[2017-10-03] MEDS: GABAPENTIN 300 MG CAPSULE PO SCH ×4 (08:16→21:18)
[2017-10-03] MEDS: FAMOTIDINE (20 MG) 20 MG TABLET PO SCH (08:16)
[2017-10-03] MEDS: SENNOSIDES 8.6 MG TABLET PO SCH (08:16)
[2017-10-03] MEDS: ASPIRIN 325 MG TABLET PO PRN (08:16)
[2017-10-03] MEDS: FERROUS SULFATE (325 MG) 325 MG/TAB TABLET PO SCH ×3 (08:16→16:42)
[2017-10-03] MEDS: hydrALAZINE HCL 25 MG TABLET PO SCH ×3 (08:17→16:42)
[2017-10-03] MEDS: LORAZEPAM 0.5 MG TABLET PO PRN ×2 (09:26→16:43)
--- NOTE | 2017-10-03 09:28 | NUR ---
GPS/RN PATIENT IS ANXIOUS AND AGITATED, ADMINISTERED ATIVAN 0.5 MG PO, WILL CONTINUE TO MONITOR.
[2017-10-03 16:00] VITALS: BP 150/80
[2017-10-03] MEDS: HYDROCODONE/APAP 5/325MG 1 EACH TABLET PO PRN (17:49)
--- NOTE | 2017-10-03 17:49 | NUR ---
GPS/RN PATIENT REPORTS 8/10 HIP PAIN, ADMINISTERED NORCO 5/325 1 TAB, WILL CONTINUE TO MONITOR
[2017-10-03 19:56] VITALS: BP 159/92
[2017-10-03 23:00] VITALS: BP 136/74
[2017-10-04 08:00] VITALS: BP 150/87
[2017-10-04] MEDS: FAMOTIDINE (20 MG) 20 MG TABLET PO SCH (08:56)
[2017-10-04] MEDS: SENNOSIDES 8.6 MG TABLET PO SCH (08:56)
[2017-10-04] MEDS: FERROUS SULFATE (325 MG) 325 MG/TAB TABLET PO SCH ×3 (08:56→16:52)
[2017-10-04] MEDS: GABAPENTIN 300 MG CAPSULE PO SCH ×4 (08:56→20:39)
[2017-10-04] MEDS: FOLIC ACID 1 MG TABLET PO SCH (08:56)
[2017-10-04] MEDS: DULOXETINE HCL 30 MG CAPSULE.DR PO SCH (08:56)
[2017-10-04] MEDS: hydrALAZINE HCL 25 MG TABLET PO SCH ×3 (08:56→16:53)
[2017-10-04] MEDS: OLANZAPINE 5 MG TABLET PO SCH ×2 (08:57→16:52)
[2017-10-04] MEDS: HYDROCODONE/APAP 5/325MG 1 EACH TABLET PO PRN ×2 (08:57→18:27)
--- NOTE | 2017-10-04 09:59 | NUR ---
JOSE L spoke with pts partner Antelmo Russell [phone] to arrange transportation for discharge. Antelmo stated that he would be picking pt up pt himself at 1:00pm via private vehicle.
[2017-10-04] MEDS: CLONIDINE HCL 0.1 MG TABLET PO PRN (12:06)
[2017-10-04] MEDS: LORAZEPAM 0.5 MG TABLET PO PRN (12:46)
[2017-10-04 16:00] VITALS: BP 111/71
[2017-10-04] MEDS ORDERED: LIDOCAINE 5% (PATCH) 1 EA PATCH TP SCH (18:00)
[2017-10-04 20:26] VITALS: BP 127/62
[2017-10-05 07:17] LABS: BASOPHILS % (AUTO) 0.3 % (0.0-2.0); EOSINOPHILS # (AUTO) 0.1 /CMM (0.0-0.7); EOSINOPHILS % (AUTO) 1.8 % (0.0-6.0); HEMATOCRIT 41 % (33-45); LYMPHOCYTES # (AUTO) 1.4 /CMM (0.8-4.8); LYMPHOCYTES % (AUTO) 31.6 % (20.0-44.0); MEAN CORPUSCULAR HEMOGLOBIN 31 PG (26.0-33.0); MEAN CORPUSCULAR HGB CONC 34 g/dl (31.0-36.0); MEAN CORPUSCULAR VOLUME 92 fL (82-100); MONOCYTES # (AUTO) 0.3 /CMM (0.1-1.30); MONOCYTES % (AUTO) 7.1 % (2.0-12.0); NEUTROPHILS # (AUTO) 2.7 /CMM (1.8-8.9); NEUTROPHILS % (AUTO) 59.2 % (43.0-81.0); PLATELET COUNT (AUTO) 237 /CMM (150-450); RDW COEFFICIENT OF VARIATION 13.6 (11.5-15.0); WHITE BLOOD COUNT (AUTO) 4.5 K/uL (4.3-11.0)
[2017-10-05 07:27] LABS: CARBON DIOXIDE 32 mmol/L (21-32); CHLORIDE 106 mmol/L (98-107); POTASSIUM 4.2 mmol/L (3.5-5.1); SODIUM SERUM 144 mmol/L (136-145)
[2017-10-05 07:40] LABS: CREATININE 0.5 mg/dL (0.6-1.3); GLUCOSE 96 mg/dL (74-106); UREA NITROGEN, BLOOD 16 mg/dL (7-18)
[2017-10-05 08:15] VITALS: BP 144/86
[2017-10-05] MEDS: SENNOSIDES 8.6 MG TABLET PO SCH (08:25)
[2017-10-05] MEDS: FAMOTIDINE (20 MG) 20 MG TABLET PO SCH (08:25)
[2017-10-05] MEDS: OLANZAPINE 5 MG TABLET PO SCH (08:25)
[2017-10-05] MEDS: DULOXETINE HCL 30 MG CAPSULE.DR PO SCH (08:25)
[2017-10-05] MEDS: FOLIC ACID 1 MG TABLET PO SCH (08:25)
[2017-10-05] MEDS: hydrALAZINE HCL 25 MG TABLET PO SCH ×2 (08:25→12:35)
[2017-10-05] MEDS: GABAPENTIN 300 MG CAPSULE PO SCH ×2 (08:25→12:35)
[2017-10-05] MEDS: FERROUS SULFATE (325 MG) 325 MG/TAB TABLET PO SCH ×2 (08:25→12:35)
[2017-10-05] MEDS: HYDROCODONE/APAP 5/325MG 1 EACH TABLET PO PRN (08:26)
--- NOTE | 2017-10-05 09:58 | NUR ---
Discharge Note: Patient will be discharged home to [address] [facility] [address] [place], [address]. Patient will be picked up by her significant other, Antelmo Russell [phone] at 1pm in his private personal vehicle. Upon discharge, patient appear to be calm, cooperative and happy to be going home. Patient denies suicidal and homicidal ideation. JOSE L made an appointment for patient to see her metal lather, Dr. Danna Segura. [address] [facility] [address] [place] [address], on Monday October 09, 2017 at 10:10am. JOSE L faxed discharge note to Giovanna chavez at Dr. Danna Herrera office at [phone]. [facility] [address] [place] [address] Dr Qureshi 310, [place] to follow up with a psychiatrist. Patient was provided referrals to address her substance and alcohol use. Patient was referred to the [address] [address] / and was encouraged to present at 9am on Monday, October 06, 2017. Additional resources included [facility] [address] [place] [address] and [facility] [address] [place], [place] [id number] . JOSE L facilitated info to IDT team who are in agreement with discharge arrangement. The multidisciplinary exitcare form was done, printed, signed, and given to the patient.
--- NOTE | 2017-10-05 10:46 | NUR ---
JOSE L faxed discharge note to Giovanna chavez at Dr. Danna Nicholas's office [phone].
[2017-10-05 12:35] VITALS: BP 145/67
--- NOTE | 2017-10-05 15:11 | NUR ---
RN NOTE: PATIENT DISCHARGED AND LEFT THE UNIT AT 1320. PATIENT LEFT THE UNIT WITH BOYFRIEND. PSYCHIATRIST GAVE DISCHARGE ORDER, DISCONTINUE HOLD, AND GAVE PRESCRIPTION. PRECISION FILER HAND MADE AWARE OF DISCHARGE. BELONGINGS WERE GIVEN TO PATIENT. EXIT CARE PAPERS SIGNED. SKIN ASSESSMENT REFUSED. EXIT CARE PAPERS GIVEN TO BOYFRIEND AND EXPLAINED TO PATIENT AND BF.
== END 2017-10-05 13:20 | disposition home or self-care (01) | DRG 885 ==
LOC: ER 09:38 → GPS 14:05
PROVIDERS: ADMIT Psychiatry & Neurology Psychiatry; ATTEND Hospitalist
DX: F33.3 Major depressive disorder, recurrent, severe with psychotic symptoms (principal); F03.90 Unspecified dementia, unspecified severity, without behavioral disturbance, psychotic disturbance, mood disturbance, and anxiety; F23 Brief psychotic disorder; I10 Essential (primary) hypertension; E03.9 Hypothyroidism, unspecified; M19.90 Unspecified osteoarthritis, unspecified site; G89.29 Other chronic pain; F41.9 Anxiety disorder, unspecified; F10.10 Alcohol abuse, uncomplicated; M25.552 Pain in left hip; K21.9 Gastro-esophageal reflux disease without esophagitis
CPT/HCPCS: 36415; 71045-TC; 80048-TC; 80053-TC; 80061-TC; 80076-TC; 85025-TC; 87081-TC; A4606; G0480; J2060; J7030; Z7610

== ENCOUNTER 2017-10-22 18:17 | Inpatient (IN) | payer MEDICAID, MEDICARE ==
[~2017-10-22] VITALS: Ht 165.1 cm; Wt 68.2 kg
[~2017-10-22 18:17] MED LIST changes: -DULO60CA45 PO; +GABA-534 PO; +LORA1TAB PO; +LOSA25TA13 PO; +OLAN10TA3 PO; -PANT40TA4 PO; +TEMA15CA PO
--- NOTE | 2017-10-22 18:20 | NUR ---
BB BOYFRIEND: FREQUENT FALLS; ANXIETY; LOW BP; L HIP PAIN. PLACED ON MONITOR. AWAITING MD ORDER
--- NOTE | 2017-10-22 19:20 | NUR ---
PT TAKEN TO CT
[2017-10-22] MEDS ORDERED: IV NS 0.9% 500 ML BAG IV ONE (19:30)
[2017-10-22 19:32] LABS: CARBON DIOXIDE 21 mmol/L (21-32); CHLORIDE 111 mmol/L (98-107); CREATININE 0.6 mg/dL (0.6-1.3); GLUCOSE 101 mg/dL (74-106); POTASSIUM 3.1 mmol/L (3.5-5.1); SODIUM SERUM 147 mmol/L (136-145); UREA NITROGEN, BLOOD 29 mg/dL (7-18)
[2017-10-22 19:36] LABS: INR 0.98 (0.87-1.13)
[2017-10-22 19:38] LABS: ALANINE AMINOTRANSFERASE 24 U/L (12-78); ALBUMIN 3.4 g/dL (3.4-5.0); ALKALINE PHOSPHATASE 85 U/L (46-116); ASPARTATE AMINOTRANSFERASE 25 U/L (15-37); BILIRUBIN,TOTAL 0.3 mg/dL (0.2-1.0); TOTAL PROTEIN, SERUM 6.4 g/dL (6.4-8.2)
[2017-10-22 19:42] LABS: TROPONIN I < 0.017 ng/mL (0.00-0.056)
[2017-10-22 20:00] VITALS: BP 108/66
[2017-10-22] MEDS ORDERED: POTASSIUM CHLORIDE 20 MEQ TAB.PRT.SR PO ONE ×2 (20:00→20:25)
--- NOTE | 2017-10-22 20:02 | NUR ---
PT ASSIGNED TO [facility] 306-2
[2017-10-22 20:07] LABS: BASOPHILS % (AUTO) 0.4 % (0.0-2.0); EOSINOPHILS % (AUTO) 0.8 % (0.0-6.0); HEMATOCRIT 30 % (33-45); HEMOGLOBIN 10.2 g/dL (11.5-14.8); LYMPHOCYTES # (AUTO) 1.1 /CMM (0.8-4.8); MEAN CORPUSCULAR HGB CONC 34 g/dl (31.0-36.0); MEAN CORPUSCULAR VOLUME 92 fL (82-100); MONOCYTES # (AUTO) 0.5 /CMM (0.1-1.30); NEUTROPHILS # (AUTO) 5.8 /CMM (1.8-8.9); NEUTROPHILS % (AUTO) 76.8 % (43.0-81.0); PLATELET COUNT (AUTO) 287 /CMM (150-450); RDW COEFFICIENT OF VARIATION 15.7 (11.5-15.0); RED BLOOD CELL COUNT(AUTO) 3.28 MIL/uL (4.0-5.2); WHITE BLOOD COUNT (AUTO) 7.5 K/uL (4.3-11.0)
--- NOTE | 2017-10-22 20:14 | NUR ---
ADAM VARGAS [phone] BOYFRIEND
--- NOTE | 2017-10-22 20:22 | NUR ---
[facility] DR CORREA, BENIGNO REACHED.
[2017-10-22] MEDS ORDERED: IV NS 0.9% 1,000 ML IV PRN (20:38)
--- NOTE | 2017-10-22 20:46 | NUR ---
GAVE REPORT TO RENEE LING TELE ROOM 306-2 DX NEAR SYNCOPE WEAKNESS. DR OCRREA ADMITTING TRANSFER VIA ACLS PROTOCOL
[2017-10-22 21:00] VITALS: BP 108/66
[2017-10-22] MEDS ORDERED: MAGNESIUM HYDROXIDE 30 ML UDC PO PRN (21:00)
[2017-10-22] MEDS ORDERED: MAG HYDROX/AL HYDROX/SIMETH 30 ML UDC PO PRN (21:00)
[2017-10-22] MEDS ORDERED: ONDANSETRON HCL/PF 4 MG/2 ML VIAL IVP PRN (21:00)
[2017-10-22] MEDS ORDERED: Z GUARD REMEDY 2 OZ OINT TP PRN (21:00)
[2017-10-22] MEDS ORDERED: ZOLPIDEM TARTRATE 5 MG TABLET PO PRN (21:00)
[2017-10-22] MEDS ORDERED: CLONIDINE HCL 0.1 MG TABLET PO PRN (21:00)
[2017-10-22] MEDS ORDERED: ASPIRIN 325 MG TABLET PO PRN (21:00)
--- NOTE | 2017-10-22 21:00 | NUR ---
RN OPENING NOTES PT RECEIVED FROM ER VIA JAYJAY CORDOVA. ON ROOM AIR, BREATHING EVEN AND UNLABORED. NO FACIAL GRIMACING OR S/S OF PAIN, SOB OR DISTRESS. IV TO LEFT HAND PATENT AND INTACT. ORIENTED PT TO ROOM AND CALL LIGHT. SIDE RAILS UPX3 WITH BED ALARM ON FOR SAFETY. PLACED ON TELE MONITOR SHOWING SR WITH HR 70'S. WILL CONTINUE TO MONITOR.
[2017-10-22] MEDS: GABAPENTIN 300 MG CAPSULE PO SCH (21:24)
[2017-10-22] MEDS: TEMAZEPAM 15 MG CAPSULE PO SCH (22:00)
[2017-10-23] VITALS (7 sets, daily range): BP systolic 93–144; BP diastolic 50–74
--- NOTE | 2017-10-23 04:15 | NUR ---
RN NOTES ORTHOSTATIC BP LAYIN/56, HR=69 SITTIN/59, HR=75 STANDING: UNABLE (PT LETHARGIC)
--- NOTE | 2017-10-23 07:37 | NUR ---
RN CLOSING NOTES PT AWAKE, A/OX2. LESS LETHARGIC/DROWSY. ON ROOM AIR, BREATHING EVEN AND UNLABORED. DENIES PAIN. INSISTING ON WALKING TO THE BATHROOM. ASSISTED PT TO BATHROOM WITH PT'S HOME WALKER. URINE COLLECTED AND PAGED LAB FOR PICKUP. IV TO LEFT AND RIGHT HAND PATENT AND INTACT. RUNNING IVF ORDERED. BED IN LOW/LOCKED POSITION WITH CALL LIGHT IN REACH. SIDE RAILS UPX3 WITH BED ALARM ON FOR SAFETY. ENDORSED TO DAY SHIFT SUSHIL GREGORY.
[2017-10-23] MEDS: SENNOSIDES 8.6 MG TABLET PO SCH (08:09)
[2017-10-23] MEDS: FAMOTIDINE (20 MG) 20 MG TABLET PO SCH (08:09)
[2017-10-23] MEDS: hydrALAZINE HCL 25 MG TABLET PO SCH ×3 (08:10→17:14)
[2017-10-23] MEDS: LORAZEPAM 1 MG TABLET PO SCH ×2 (08:10→17:14)
[2017-10-23] MEDS: GABAPENTIN 300 MG CAPSULE PO SCH ×4 (08:10→20:06)
[2017-10-23] MEDS: FOLIC ACID 1 MG TABLET PO SCH (08:11)
--- NOTE | 2017-10-23 08:35 | NUR ---
MS NOTES PATIENT IS A/O X2 FORGETFUL, TOLERATING ROOM AIR, NO SOB. APPEARS ANXIOUS, DENIES PAIN. AMBULATORY, REMINDED TO USE CALL LIGHT IF SHE NEEDS ASSISTANCE, REORIENT EASILY. BREAKFAST SERVED, WITH GOOD APPETITE. SAFETY MEASURES IN PLACE. WILL CONT TO MONITOR.
[2017-10-23] MEDS ORDERED: FERROUS SULFATE (325 MG) 325 MG/TAB TABLET PO SCH (09:00)
[2017-10-23] MEDS ORDERED: OLANZAPINE 10 MG TABLET PO SCH (09:00)
[2017-10-23 10:11] LABS: BASOPHILS % (AUTO) 0.6 % (0.0-2.0); EOSINOPHILS % (AUTO) 0.5 % (0.0-6.0); HEMATOCRIT 30 % (33-45); HEMOGLOBIN 9.9 g/dL (11.5-14.8); LYMPHOCYTES # (AUTO) 0.8 /CMM (0.8-4.8); LYMPHOCYTES % (AUTO) 14.6 % (20.0-44.0); MEAN CORPUSCULAR HGB CONC 34 g/dl (31.0-36.0); MEAN CORPUSCULAR VOLUME 92 fL (82-100); MONOCYTES # (AUTO) 0.3 /CMM (0.1-1.30); MONOCYTES % (AUTO) 5.1 % (2.0-12.0); NEUTROPHILS # (AUTO) 4.4 /CMM (1.8-8.9); NEUTROPHILS % (AUTO) 79.2 % (43.0-81.0); PLATELET COUNT (AUTO) 279 /CMM (150-450); RED BLOOD CELL COUNT(AUTO) 3.19 MIL/uL (4.0-5.2); WHITE BLOOD COUNT (AUTO) 5.6 K/uL (4.3-11.0)
[2017-10-23 10:21] LABS: CALCIUM, SERUM 7.6 mg/dL (8.5-10.1); CARBON DIOXIDE 21 mmol/L (21-32); CHLORIDE 114 mmol/L (98-107); CREATININE 0.6 mg/dL (0.6-1.3); GLUCOSE 197 mg/dL (74-106); MAGNESIUM 2.2 mg/dL (1.8-2.4); PHOSPHORUS 2.6 mg/dL (2.5-4.9); POTASSIUM 3.2 mmol/L (3.5-5.1); SODIUM SERUM 149 mmol/L (136-145); UREA NITROGEN, BLOOD 27 mg/dL (7-18)
[2017-10-23] MEDS: OLANZAPINE 5 MG TABLET PO SCH ×2 (10:24→17:14)
[2017-10-23] MEDS: IV NS 0.9% 1,000 ML IV PRN ×2 (10:25→23:08)
[2017-10-23 10:38] LABS: THYROID STIMULATING HORMONE 0.423 uIU/mL (0.358-3.74)
[2017-10-23 10:59] LABS: MAGNESIUM 2.2 mg/dL (1.8-2.4)
[2017-10-23 11:00] LABS: PHOSPHORUS 2.6 mg/dL (2.5-4.9)
[2017-10-23] MEDS: POTASSIUM CHLORIDE 20 MEQ TAB.PRT.SR PO SCH ×3 (12:07→17:14)
[2017-10-23] MEDS: LORAZEPAM INJ 2 MG/ML VIAL IV PRN (12:07)
--- NOTE | 2017-10-23 12:10 | NUR ---
PATIENT APPEARS VERY ANXIOUS, GETTING UP FROM BED UNASSISTED, ATTEMPTED TO HIT STAFF, UNABLE TO CONTROL BEHAVIOR AGITATION. NOTIFIED DR. MARTÍN LEES, ATIVAN 1MG IVP GIVEN, MAINTAIN SAFETY PRECAUTION, 1:1 SITTER AT THE BEDSIDE. WILL CONT TO MONITOR.
[2017-10-23 12:23] LABS: APPEARANCE,URINE CLEAR (CLEAR); BILIRUBIN,URINE NEGATIVE (NEGATIVE); BLOOD, URINE NEGATIVE Ery/uL (NEGATIVE); COLOR,URINE YELLOW (YELLOW); KETONES,URINE 2+ (NEGATIVE); LEUKOCYTE ESTERASE ,URINE NEGATIVE (NEGATIVE); NITRITE, URINE NEGATIVE (NEGATIVE); PH,URINE 5.5 (5.0-8.0); PROTEIN,URINE NEGATIVE (NEGATIVE); UGLUCOSE NEGATIVE (NEGATIVE); UROBILINOGEN,URINE 0.2 EU/dL (0.2)
[2017-10-23 12:33] LABS: BACTERIA,URINE Rare /HPF (None Seen); RBC,URINE 0-2 /HPF (0-2); SQUAMOUS EPITHELIAL CELL,UR Moderate /HPF (None Seen)
--- NOTE | 2017-10-23 18:26 | NUR ---
MS RN CLOSING NOTES VS REMAINS STABLE, EPISODE OF AGITATED BEHAVIOR TODAY, MANAGED BY ATIVAN IVP PRN, EFFECTIVE. IVF NS INFUSING AT 200ML/HR, TOLERATING WELL. POTASSIUM PO SUPPLEMENTED. PATIENT IS AMBULATORY, WITH WALKER ASSIST. CT HIP WO CONTRAST RESULTED, DR. MARTÍN LEES IS AWARE WITH NO NEW ORDERS AT THIS TIME. SAFETY MEASURES IN PLACE, 1:1 SITTER AT THE BEDSIDE. WILL ENDORSE TO ONCOMING RN.
--- NOTE | 2017-10-23 19:40 | NUR ---
MS RN OPENING NOTES RECEIVED PT LAYING IN BED WITH HOB SLIGHTLY ELEVATED WITH SITTER AT BEDSIDE. AWAKE AND RESPONSIVE. AFEBRILE, RESPIRATIONS ARE EVEN AND UNLABORED. DENIES ANY PAIN AT THIS TIME, NO SOB NOTED. IV SITE INTACT, NO INFILTRATION NOTED. DRESSING KEPT CLEAN AND DRY. SAFETY MEASURES ARE IN PLACE, BED IS IN ITS LOCKED AND LOWEST POSITION. WILL CONTINUE TO MONITOR THROUGHOUT SHIFT.
--- NOTE | 2017-10-23 20:30 | NUR ---
MS RN NOTES PT BECAME AGITATED. TOOK ATIVAN FROM OMNICELL WITH A COSIGN OF A PARTIAL DOSE WASTE. WENT BACK TO PT'S ROOM TO ADMINISTER MEDICATION AND PATIENT FELL BACK ASLEEP. NO ATIVAN GIVEN. WASTED ATIVAN WITH CHARGE NURSE.
[2017-10-23] MEDS: TEMAZEPAM 15 MG CAPSULE PO SCH (23:08)
--- NOTE | 2017-10-23 23:30 | NUR ---
MS RN NOTES PT ASSIGNED TO ANOTHER NURSE. PT IS CURRENTLY STABLE AT THIS TIME, NOT IN ANY APPARENT DISTRESS NOTED. SITTER AT BEDSIDE. IV INTACT, NO INFILTRATION NOTED. DRESSING KEPT CLEAN AND DRY. REPORT GIVEN TO SUSHIL KEYES FOR CONTINUITY OF CARE.
[2017-10-24] VITALS (7 sets, daily range): BP systolic 118–150; BP diastolic 57–93
--- NOTE | 2017-10-24 00:15 | NUR ---
RN NOTES RECEIVED REPORT FROM SUSHIL HORN. PT RESTING IN BED. 1:1 SITTER AT BEDSIDE. NO APPARENT S/S OF PAIN DISTRESS OR SOB AT THIS TIME. PT IS CONFUSED. PT HAS A LEFT FORE ARM IV #22 RUNNING NS @ 200 ML/HR. SAFETY PRECAUTIONS IN PLACE, BED IN LOWEST LOCKED POSITION, X3 SIDE RAILS IN PLACE, CALL LIGHT WITHIN REACH. WILL CONTINUE TO MONITOR.
[2017-10-24] MEDS: IV NS 0.9% 1,000 ML IV PRN (04:45)
[2017-10-24 06:29] LABS: BASOPHILS % (AUTO) 0.6 % (0.0-2.0); EOSINOPHILS % (AUTO) 1.6 % (0.0-6.0); HEMATOCRIT 27 % (33-45); HEMOGLOBIN 9.1 g/dL (11.5-14.8); LYMPHOCYTES # (AUTO) 1.2 /CMM (0.8-4.8); LYMPHOCYTES % (AUTO) 22.9 % (20.0-44.0); MEAN CORPUSCULAR HGB CONC 33 g/dl (31.0-36.0); MEAN CORPUSCULAR VOLUME 94 fL (82-100); MONOCYTES # (AUTO) 0.4 /CMM (0.1-1.30); MONOCYTES % (AUTO) 8.1 % (2.0-12.0); NEUTROPHILS # (AUTO) 3.4 /CMM (1.8-8.9); NEUTROPHILS % (AUTO) 66.8 % (43.0-81.0); PLATELET COUNT (AUTO) 232 /CMM (150-450); RDW COEFFICIENT OF VARIATION 16.5 (11.5-15.0); RED BLOOD CELL COUNT(AUTO) 2.92 MIL/uL (4.0-5.2); WHITE BLOOD COUNT (AUTO) 5.1 K/uL (4.3-11.0)
[2017-10-24 06:38] LABS: ALANINE AMINOTRANSFERASE 19 U/L (12-78); ALBUMIN 2.7 g/dL (3.4-5.0); ALKALINE PHOSPHATASE 69 U/L (46-116); ASPARTATE AMINOTRANSFERASE 20 U/L (15-37); BILIRUBIN,TOTAL 0.2 mg/dL (0.2-1.0); CARBON DIOXIDE 21 mmol/L (21-32); CHLORIDE 121 mmol/L (98-107); CREATININE 0.4 mg/dL (0.6-1.3); GLUCOSE 96 mg/dL (74-106); MAGNESIUM 2.9 mg/dL (1.8-2.4); PHOSPHORUS 3.3 mg/dL (2.5-4.9); POTASSIUM 3.8 mmol/L (3.5-5.1); SODIUM SERUM 152 mmol/L (136-145); TOTAL PROTEIN, SERUM 5.2 g/dL (6.4-8.2); UREA NITROGEN, BLOOD 26 mg/dL (7-18)
--- NOTE | 2017-10-24 06:51 | NUR ---
RN CLOSING NOTES PT RESTING IN BED. 1:1 SITTER AT BEDSIDE. NO APPARENT S/S OF PAIN DISTRESS OR SOB OVERNIGHT. PT IS CONFUSED AND ANXIOUS. PT HAS A LEFT FOREARM IV #22 RUNNING. SAFETY PRECAUTIONS IN PLACE, BED IN LOWEST LOCKED POSITION, X3 SIDE RAILS IN PLACE, CALL LIGHT WITHIN REACH. WILL ENDORSE TO DAY SHIFT NURSE FOR CONTINUITY OF CARE.
[2017-10-24] MEDS: FAMOTIDINE (20 MG) 20 MG TABLET PO SCH (07:49)
[2017-10-24] MEDS: HYDROCODONE/APAP 5/325MG 1 EACH TABLET PO PRN ×2 (07:50→13:30)
[2017-10-24] MEDS: OLANZAPINE 5 MG TABLET PO SCH ×2 (08:14→16:36)
[2017-10-24] MEDS: hydrALAZINE HCL 25 MG TABLET PO SCH ×4 (08:15→17:05)
[2017-10-24] MEDS: LORAZEPAM 1 MG TABLET PO SCH ×2 (08:15→16:36)
[2017-10-24] MEDS: FOLIC ACID 1 MG TABLET PO SCH (08:16)
[2017-10-24] MEDS: GABAPENTIN 300 MG CAPSULE PO SCH ×4 (08:16→21:20)
[2017-10-24] MEDS: SENNOSIDES 8.6 MG TABLET PO SCH (08:16)
--- NOTE | 2017-10-24 09:30 | NUR ---
PT. CONTINUES TO GET UP OOB AND WALK IN HALLS ALTHOUGH ADVISED OTHERWISE BY DEPUTY SHERIFF BAILIFF AND MD.THEN CONTINUES TO C/O PAIN IN LT. HIP.
--- NOTE | 2017-10-24 10:00 | NUR ---
COMMERCIAL GREEN BUILDING ARCHITECT FOR Vladimir LEES HERE AND RN REQUESTED ADDITIONAL PRN FOR AGITATION.
[2017-10-24] MEDS ORDERED: LORAZEPAM INJ 2 MG/ML VIAL IV ONE ×2 (10:30→16:00)
--- NOTE | 2017-10-24 10:30 | NUR ---
NEW IV START RT. HAND #24 ANGIO.LT ARM IV REMOVED.
[2017-10-24] MEDS: IV D5W 1,000 ML IV PRN (10:49)
--- NOTE | 2017-10-24 14:00 | NUR ---
PT. GETTING OOB YELING AND OUT OF CONTROL,TEXT AND PHONE CALL TO SHAQ CASINO RUNNER-THEN CALL OUT TO .
[2017-10-24] MEDS ORDERED: OLANZAPINE 10 MG VIAL IM ONE (14:30)
--- NOTE | 2017-10-24 14:30 | NUR ---
RECEIVED ORDER FOR ZYPREXA IM FROM DR. VILLALOBOS.
--- NOTE | 2017-10-24 15:01 | NUR ---
SO FAR PT. MED. X2 WITH NORCO AND X2 WITH ATIVAN,STILL INSISTING SHE DID NOT HAVE ANY OF HER MEDS TODAY.REASSURED PT. AND MADE A COMPLETE LIST FOR HER OF MEDS RECEIVED TODAY.PT. LOOKED AT LIST AND STILL SAID SOMETHING WAS MISSING,ASKING FOR HER PARENTS ON OCCASION.
--- NOTE | 2017-10-24 15:58 | NUR ---
DR. VILLALOBOS CALLED AGAIN PT. UNRULY,GIVEN ATIVAN 1 MG IV ORDERED.SPOUSE CALLED AND PLANS TO COME SEE PT.PT.STILL SEEMS DISAGREEABLE ALTHOUGH SHE IS AWARE OF SPOUSE COMING TO SEE HER SHE REQUESTED.
--- NOTE | 2017-10-24 17:30 | NUR ---
RN IN TO RM. AND FIND IV HEP LOCK OUT FROM RT HAND.PT. STATES SHE DOES NOT REMEMBER DOING IT.TO BE RESTARTED.
--- NOTE | 2017-10-24 18:00 | NUR ---
SPOUSE IN TO VISIT AND PT. WITH WALKER OUT IN [place] SAYS SHE CAN'T BE IN SAME RM. SPOUSE. REORIENTED AND ASSISTED BACK TO RM.ADDITIONALLY REFUSED KAMRAN. HYDRALAZINE SHE STATES SHE DOES NOT TRUST NURSE.
--- NOTE | 2017-10-24 19:40 | NUR ---
MS RN INITIAL NOTE PT IS IN BED SLEEPING EASILY AROUSED, PLEASANT AT THIS TIME. 1:1 SITTER AT BEDSIDE. DENIES PAIN AT THIS TIME. NO IV ACCESS, PT AGREED TO LET US GET A IV ON HER. NO SIGNS OF SOB OR DISTRESS, BREATHING EVENLY AND UNLABORED ON RA. BED IS IN LOW AND LOCKED POSITION, SIDE RAILS UP X2, BED ALARM IS ON. WILL CONTINUE TO MONITOR PT
[2017-10-24] MEDS: TEMAZEPAM 15 MG CAPSULE PO SCH (21:21)
[2017-10-24] MEDS: ACETAMINOPHEN 325 MG TABLET PO PRN (22:17)
[2017-10-24] MEDS: LORAZEPAM INJ 2 MG/ML VIAL IV PRN (23:48)
--- NOTE | 2017-10-24 23:50 | NUR ---
MS RN NOTE PT BECAME REALLY ANXIOUS AND UPSET AFTER NOT BEING ABLE TO REMEMBER HER HUSBANDS PHONE NUMBER, SLAMMING THE BOOK DOWN ON HER LEGS AND YELLING IN FRUSTRATION ABOUT IT. DISTRACTION AND DEESCALATION WERE USED BUT PT KEPT INSISTING ON NEEDING TO REMEMBER THE NUMBER ON HER OWN. PRN ATIVAN WAS ADMINISTERED. WILL CONTINUE TO MONITOR PT
[2017-10-25] MEDS: ACETAMINOPHEN 325 MG TABLET PO PRN ×2 (05:22→08:39)
[2017-10-25] MEDS: IV D5W 1,000 ML IV PRN (05:24)
[2017-10-25 06:23] LABS: BASOPHILS % (AUTO) 0.5 % (0.0-2.0); EOSINOPHILS % (AUTO) 1.9 % (0.0-6.0); HEMATOCRIT 29 % (33-45); HEMOGLOBIN 9.6 g/dL (11.5-14.8); LYMPHOCYTES # (AUTO) 1.6 /CMM (0.8-4.8); LYMPHOCYTES % (AUTO) 34.3 % (20.0-44.0); MEAN CORPUSCULAR HGB CONC 33 g/dl (31.0-36.0); MEAN CORPUSCULAR VOLUME 94 fL (82-100); MONOCYTES # (AUTO) 0.4 /CMM (0.1-1.30); MONOCYTES % (AUTO) 8.3 % (2.0-12.0); NEUTROPHILS # (AUTO) 2.5 /CMM (1.8-8.9); PLATELET COUNT (AUTO) 247 /CMM (150-450); RDW COEFFICIENT OF VARIATION 16.1 (11.5-15.0); RED BLOOD CELL COUNT(AUTO) 3.07 MIL/uL (4.0-5.2); WHITE BLOOD COUNT (AUTO) 4.6 K/uL (4.3-11.0)
--- NOTE | 2017-10-25 06:38 | NUR ---
MS RN CLOSING NOTE PT IS IN BED SLEEPING, EASILY AROUSED. SITTER AT BEDSIDE. BREATHING EVENLY AND UNLABORED ON RA. NO SIGNS OF SOB OR DISTRESS. IV ACCESS IS INTACT AND PATENT WITH D5W RUNNING AT 75 ML/HR. NO ACUTE CHANGES THROUGHOUT THE SHIFT. ALL NEEDS WERE ANTICIPATED AND MET. BED IS IN LOW AND LOCKED POSITION, BED ALARM IS ON. WILL ENDORSE TO DAYSHIFT.
[2017-10-25 06:43] LABS: ALANINE AMINOTRANSFERASE 35 U/L (12-78); ALBUMIN 2.9 g/dL (3.4-5.0); ALKALINE PHOSPHATASE 75 U/L (46-116); ASPARTATE AMINOTRANSFERASE 35 U/L (15-37); BILIRUBIN,TOTAL 0.2 mg/dL (0.2-1.0); CALCIUM, SERUM 8.2 mg/dL (8.5-10.1); CARBON DIOXIDE 28 mmol/L (21-32); CHLORIDE 112 mmol/L (98-107); CREATININE 0.4 mg/dL (0.6-1.3); GLUCOSE 121 mg/dL (74-106); MAGNESIUM 1.8 mg/dL (1.8-2.4); PHOSPHORUS 3.8 mg/dL (2.5-4.9); POTASSIUM 3.7 mmol/L (3.5-5.1); SODIUM SERUM 142 mmol/L (136-145); TOTAL PROTEIN, SERUM 5.6 g/dL (6.4-8.2); UREA NITROGEN, BLOOD 15 mg/dL (7-18)
[2017-10-25 08:00] VITALS: BP 146/74
--- NOTE | 2017-10-25 08:00 | NUR ---
MS RN AM NOTES RECEIVED PT IN BED ALERT AND ORIENTED X2.RESTLESS AND AGITATED.VERBALLY RESPONSIVE.C/O MILD LT HIP PAIN ,TYLENOL 650 MG PO GIVEN FOR PAIN MGT.ASSISTED PT TO THE TOILET USING FWW.WITH BRP.DENIES ANY DISTRESS ON ROOM AIR.WITH 1:1 SITTER AT BEDSIDE.HIGH RISK FOR FALLS.ATIVAN 1 MG PO GIVEN.WILL CONTINUE TO MONITOR.CALL LIGHT PLACED WITHIN REACH.
[2017-10-25] MEDS: FOLIC ACID 1 MG TABLET PO SCH (08:40)
[2017-10-25] MEDS: hydrALAZINE HCL 25 MG TABLET PO SCH ×2 (08:41→12:29)
[2017-10-25] MEDS: FAMOTIDINE (20 MG) 20 MG TABLET PO SCH (08:41)
[2017-10-25] MEDS: GABAPENTIN 300 MG CAPSULE PO SCH ×2 (08:42→12:27)
[2017-10-25] MEDS: OLANZAPINE 5 MG TABLET PO SCH (08:42)
[2017-10-25] MEDS: LORAZEPAM 1 MG TABLET PO SCH (08:42)
[2017-10-25] MEDS: SENNOSIDES 8.6 MG TABLET PO SCH (08:45)
[2017-10-25] MEDS: HYDROCODONE/APAP 5/325MG 1 EACH TABLET PO PRN ×2 (09:36→12:27)
[2017-10-25 12:00] VITALS: BP 162/72
[2017-10-25 12:29] VITALS: BP 162/72
--- NOTE | 2017-10-25 12:39 | NUR ---
PT IS IN SO MUCH PAIN IN HER LT HIP 12/19 AND WANTED TO RECEIVE NORCO EVEN IF ITS AN HOUR EARLY.BP IS HIGH 162/[address] LEES FOR A STRONGER PAIN MEDICINE.
--- NOTE | 2017-10-25 13:00 | NUR ---
NOTIFIED MARTÍN LEES NP OF PT NEEDING S STRONGER PAIN MEDS FOR LT HIP PAIN BUT MARTÍN REFUSED TO ORDER A STRONGER PAIN MED.
--- NOTE | 2017-10-25 16:00 | NUR ---
DISCHARGE INSTRUCTIONS,MED RECONCILIATION,MED AND HEALTH TEACHING DONE.REPORT [facility] WHO STATED THAT THE PT IS GOING TO THE LOCK UNIT ROOM 102.IV H/L REMOVED TO RT WRIST WITH NO BLEEDING AND PT TOLERATED WELL.CALLED PT'S HOME [facility] AND MADE THEM AWARE OF PT'S DC TO [facility].DISCHARGED VIA AMBULANCE WITH STABLE V/S.CALLED PT'S ,ADAM VARGAS AND MADE HIM AWARE OF THE DISCHARGE TO [facility].
[2017-10-26] MEDS ORDERED: ACET-868 PO (15:10)
[2017-10-26] MEDS ORDERED: ZOLP5TAB2 PO (15:10)
[2017-10-26] MEDS ORDERED: HYDR-552 PO (15:10)
[2017-10-26] MEDS ORDERED: MAG30ORA PO (15:10)
== END 2017-10-25 16:00 | DRG 641 ==
LOC: ER 18:18 → TELE 20:18 → MED 10-23 05:58
DX: E87.0 Hyperosmolality and hypernatremia (principal); F03.91 Unspecified dementia, unspecified severity, with behavioral disturbance; E83.51 Hypocalcemia; D63.8 Anemia in other chronic diseases classified elsewhere; N39.0 Urinary tract infection, site not specified; E86.0 Dehydration; E87.6 Hypokalemia; I10 Essential (primary) hypertension; M19.90 Unspecified osteoarthritis, unspecified site; M85.80 Other specified disorders of bone density and structure, unspecified site; R29.6 Repeated falls; Z96.642 Presence of left artificial hip joint; F41.9 Anxiety disorder, unspecified; F32.9 Major depressive disorder, single episode, unspecified; E03.9 Hypothyroidism, unspecified; G89.29 Other chronic pain; F10.10 Alcohol abuse, uncomplicated; R55 Syncope and collapse; F29 Unspecified psychosis not due to a substance or known physiological condition
CPT/HCPCS: 36415; 70450-TC; 71045-TC; 72170-TC; 73700-TC; 80048-TC; 80053-TC; 80061-TC; 80076-TC; 81000-TC; 82306; 82550-TC; 82728-TC; 83540-TC; 83735-TC; 84100-TC; 84439-TC; 84443-TC; 84484-TC; 85025-TC; 85730-TC; 87081-TC; 87086-TC; 93307-TC; A4606; J2060; J3490; J7030; J7040; J7070; Z7610

== ENCOUNTER 2017-10-26 14:55 | Inpatient (IN) | payer MEDICARE ==
[~2017-10-26] VITALS: Ht 160 cm; Wt 65.8 kg
[2017-10-26] MEDS ORDERED: ZOLP5TAB2 PO (15:10)
[2017-10-26] MEDS ORDERED: MAG30ORA PO (15:10)
[2017-10-26] MEDS ORDERED: HYDR-552 PO (15:10)
[2017-10-26] MEDS ORDERED: ACET-868 PO (15:10)
[2017-10-26 15:41] LABS: BASOPHILS # (AUTO) 0.2 /CMM (0.0-0.2); BASOPHILS % (AUTO) 4.4 % (0.0-2.0); EOSINOPHILS % (AUTO) 2.4 % (0.0-6.0); HEMATOCRIT 30 % (33-45); HEMOGLOBIN 10.5 g/dL (11.5-14.8); LYMPHOCYTES # (AUTO) 1.2 /CMM (0.8-4.8); LYMPHOCYTES % (AUTO) 25.1 % (20.0-44.0); MEAN CORPUSCULAR HGB CONC 35 g/dl (31.0-36.0); MEAN CORPUSCULAR VOLUME 93 fL (82-100); MONOCYTES # (AUTO) 0.4 /CMM (0.1-1.30); MONOCYTES % (AUTO) 9.1 % (2.0-12.0); PLATELET COUNT (AUTO) 250 /CMM (150-450); RDW COEFFICIENT OF VARIATION 15.6 (11.5-15.0); RED BLOOD CELL COUNT(AUTO) 3.28 MIL/uL (4.0-5.2); WHITE BLOOD COUNT (AUTO) 4.9 K/uL (4.3-11.0)
[2017-10-26 15:48] LABS: CALCIUM, SERUM 8.4 mg/dL (8.5-10.1); CARBON DIOXIDE 26 mmol/L (21-32); CHLORIDE 109 mmol/L (98-107); CREATININE 0.6 mg/dL (0.6-1.3); GLUCOSE 112 mg/dL (74-106); POTASSIUM 3.6 mmol/L (3.5-5.1); SODIUM SERUM 144 mmol/L (136-145); UREA NITROGEN, BLOOD 13 mg/dL (7-18)
--- NOTE | 2017-10-26 16:00 | NUR ---
PT UNABLE TO GIVE URINE AT THIS TIME.
[2017-10-26 16:01] LABS: ACETAMINOPHEN 3 ug/ml (10-30); ALANINE AMINOTRANSFERASE 69 U/L (12-78); ALBUMIN 3.3 g/dL (3.4-5.0); ALCOHOL, BLOOD < 3 mg/dL (0-0); ALKALINE PHOSPHATASE 94 U/L (46-116); ASPARTATE AMINOTRANSFERASE 49 U/L (15-37); BILIRUBIN,DIRECT 0.1 mg/dL (0.0-0.2); BILIRUBIN,TOTAL 0.4 mg/dL (0.2-1.0); TOTAL PROTEIN, SERUM 6.2 g/dL (6.4-8.2)
[2017-10-26 16:03] LABS: SALICYLATE 0.9 mg/dL (2.8-20.0)
--- NOTE | 2017-10-26 16:15 | NUR ---
PT NOTED UNCOOPERATIVE WITH CARE,. KEEPS ON STANDING UP AND WALKING. DEMANDS A LOT. MD AWARE.
--- NOTE | 2017-10-26 17:19 | NUR ---
REPORT GIVEN TO KRIS FOR GPS.
[2017-10-26] MEDS ORDERED: HALOPERIDOL LACTATE INJ 5 MG/ML VIAL ONE (17:21)
[2017-10-26] MEDS ORDERED: HALOPERIDOL LACTATE INJ 5 MG/ML VIAL IM ONE (17:30)
--- NOTE | 2017-10-26 17:30 | NUR ---
LUDY DNUN AT BS FOR EVAL.
--- NOTE | 2017-10-26 18:57 | NUR ---
GPS/RN-NOTES ADMITTED 76 Y.O FEMALE PATIENT FOR 5150 FOR DTO AND GRAVELY DISABLE ADULT.PER HOLD PATIENT THREW CHAIR AT STAFF IN THE FACILITY. PATIENT IS UNDER THE CARE OF DR. CH AND HIS MADE AWARE OF THE ADMISSION WITH ORDERS. CONTRABAND DONE.PATIENT REFUSED TOO SIGN ADMISSION PAPERS. PATIENT AWAKE,ALERT X2 LAYING IN HER BED,NO ACUTE DISTRESS NOTED.WILL ENDORSE TO INCOMING NURSE FOR CONTINUITY OF CARE AND THE ADMISSION PROCESS.
[2017-10-26] MEDS ORDERED: MAGNESIUM HYDROXIDE 30 ML UDC PO PRN (19:00)
[2017-10-26 19:04] VITALS: BP 148/88
[2017-10-26 20:00] VITALS: BP 163/61
--- NOTE | 2017-10-26 20:05 | NUR ---
GPS-RN SKIN/BODY CHECK DONE. NOTED BRUISES ON HER RIGHT AND LEFT LOWER LEG. PICTURES TAKEN. WILL ENDORSE TO NEXT SHIFT NURSE FOR BRI.
[2017-10-26] MEDS: LORAZEPAM 0.5 MG TABLET PO PRN (20:55)
[2017-10-26 22:00] VITALS: BP 145/74
[2017-10-27] VITALS (7 sets, daily range): BP systolic 152–180; BP diastolic 68–100
[2017-10-27] MEDS ORDERED: CLONIDINE HCL 0.1 MG TABLET PO PRN
[2017-10-27] MEDS ORDERED: ZOLPIDEM TARTRATE 5 MG TABLET PO PRN
[2017-10-27] MEDS ORDERED: ACETAMINOPHEN 325 MG TABLET PO PRN
[2017-10-27] MEDS: hydrALAZINE HCL 25 MG TABLET PO SCH ×4 (00:43→21:49)
[2017-10-27] MEDS: HYDROCODONE/APAP 5/325MG 1 EACH TABLET PO PRN ×3 (00:57→16:25)
[2017-10-27] MEDS: LORAZEPAM 0.5 MG TABLET PO PRN (04:01)
[2017-10-27] MEDS: ACETAMINOPHEN 325 MG TABLET PO PRN (04:18)
--- NOTE | 2017-10-27 04:18 | NUR ---
GPS RN NOTE, PATIENT HAS A COMPLAINT OF CHRONIC LEFT HIP AT 3 OUT 0F 10 ON THE PAIN SCALE AND IS REQUESTING TYLENOL AT THIS TIME. PATIENT VITAL SIGNS ARE STABLE. GAVE TYLENOL 650MG PO Q6HR PRN ORDERED. WILL REASSESS FOR PAIN AND I WILL CONTINUE TO MONITOR THIS PATIENT.
[2017-10-27 07:16] LABS: CHOLESTEROL 160 mg/dL (<200); HDL CHOLESTEROL 52 mg/dL (40-60); LDL 96 mg/dL (0-99); TRIGLYCERIDES 87 mg/dL (30-150)
[2017-10-27 07:17] LABS: ALANINE AMINOTRANSFERASE 61 U/L (12-78); ALBUMIN 3.1 g/dL (3.4-5.0); ALKALINE PHOSPHATASE 86 U/L (46-116); ASPARTATE AMINOTRANSFERASE 43 U/L (15-37); BILIRUBIN,TOTAL 0.5 mg/dL (0.2-1.0); CALCIUM, SERUM 8.4 mg/dL (8.5-10.1); CARBON DIOXIDE 28 mmol/L (21-32); CHLORIDE 109 mmol/L (98-107); CREATININE 0.3 mg/dL (0.6-1.3); GLUCOSE 104 mg/dL (74-106); POTASSIUM 3.5 mmol/L (3.5-5.1); SODIUM SERUM 145 mmol/L (136-145); TOTAL PROTEIN, SERUM 5.7 g/dL (6.4-8.2); UREA NITROGEN, BLOOD 9 mg/dL (7-18)
[2017-10-27] MEDS: FAMOTIDINE (20 MG) 20 MG TABLET PO SCH (07:42)
[2017-10-27] MEDS: GABAPENTIN 300 MG CAPSULE PO SCH ×4 (08:51→21:50)
[2017-10-27] MEDS: FERROUS SULFATE (325 MG) 325 MG/TAB TABLET PO SCH ×3 (08:51→16:25)
[2017-10-27] MEDS: ASPIRIN 325 MG TABLET PO SCH (08:51)
[2017-10-27] MEDS: FOLIC ACID 1 MG TABLET PO SCH (08:53)
--- NOTE | 2017-10-27 09:43 | NUR ---
PT RETURNING TO UNIT WITHIN 30 DAYS OF INITIAL DISCHARGE: SW has reviewed this patients psychosocial dated 09/29/17 and can attest to the accuracy of the information therein. There have been no changes since her last assessment. Pt. still appears agitated, disorganized, and yelling she is in pain. Patient's mood and affect are anxious as she kept stating that she wants medication for excruciating pain and kept stating "you are trying to kill me" to nursing staff. Pt's. insight and judgement are poor. Pt. denies visual/ auditory hallucinations. Pt. denies suicidal/homicidal ideations.
--- NOTE | 2017-10-27 09:47 | NUR ---
INITIAL DISCHARGE NOTE: Pt needs placement and SW will help for a safe and proper discharge in collaboration with MD.
--- NOTE | 2017-10-27 14:11 | NUR ---
PATIENT INFORMATION AND CHOICE LETTER: SW explained to pt that placement at a SNF was a recommendation as part of her discharge plan. 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 Pt stated that she did not have a preference of providers if she did not have a choice in her discharge planning. Pt refused to sign due to her not wanting to be placed at a SNF.
[2017-10-27] MEDS: MAG HYDROX/AL HYDROX/SIMETH 30 ML UDC PO PRN (14:40)
[2017-10-27] MEDS: TEMAZEPAM 7.5 MG CAPSULE PO PRN (21:50)
[2017-10-27] MEDS: OLANZAPINE 5 MG/TAB.RAPDIS PO SCH (21:50)
[2017-10-28] MEDS: hydrALAZINE HCL 25 MG TABLET PO SCH ×3 (05:56→21:07)
[2017-10-28 08:00] VITALS: BP 150/77
[2017-10-28] MEDS: DULOXETINE HCL 30 MG CAPSULE.DR PO SCH (09:08)
[2017-10-28] MEDS: GABAPENTIN 300 MG CAPSULE PO SCH ×4 (09:08→21:07)
[2017-10-28] MEDS: FERROUS SULFATE (325 MG) 325 MG/TAB TABLET PO SCH ×3 (09:08→16:55)
[2017-10-28] MEDS: OLANZAPINE 5 MG/TAB.RAPDIS PO SCH ×2 (09:08→21:07)
[2017-10-28] MEDS: FOLIC ACID 1 MG TABLET PO SCH (09:08)
[2017-10-28] MEDS: FAMOTIDINE (20 MG) 20 MG TABLET PO SCH (09:08)
[2017-10-28] MEDS: ASPIRIN 325 MG TABLET PO SCH (09:08)
[2017-10-28] MEDS: MAG HYDROX/AL HYDROX/SIMETH 30 ML UDC PO PRN (09:38)
[2017-10-28] MEDS: HYDROCODONE/APAP 5/325MG 1 EACH TABLET PO PRN ×3 (10:37→23:46)
[2017-10-28 16:16] VITALS: BP 154/75
[2017-10-28 20:00] VITALS: BP 143/93
[2017-10-28] MEDS: TEMAZEPAM 7.5 MG CAPSULE PO PRN (22:15)
[2017-10-29] MEDS: hydrALAZINE HCL 25 MG TABLET PO SCH ×3 (06:05→21:25)
[2017-10-29] MEDS: HYDROCODONE/APAP 5/325MG 1 EACH TABLET PO PRN ×2 (06:13→16:00)
[2017-10-29] MEDS: OLANZAPINE 5 MG/TAB.RAPDIS PO SCH ×2 (08:18→21:26)
[2017-10-29] MEDS: FOLIC ACID 1 MG TABLET PO SCH (08:18)
[2017-10-29] MEDS: FERROUS SULFATE (325 MG) 325 MG/TAB TABLET PO SCH ×3 (08:18→16:00)
[2017-10-29] MEDS: ASPIRIN 325 MG TABLET PO SCH (08:18)
[2017-10-29] MEDS: GABAPENTIN 300 MG CAPSULE PO SCH ×4 (08:18→21:26)
[2017-10-29 08:20] VITALS: BP 156/84
[2017-10-29] MEDS: LISINOPRIL (5MG) 5 MG TABLET PO SCH (08:20)
[2017-10-29] MEDS: FAMOTIDINE (20 MG) 20 MG TABLET PO SCH (08:22)
[2017-10-29] MEDS: DULOXETINE HCL 30 MG CAPSULE.DR PO SCH (08:22)
[2017-10-29] MEDS: LIDOCAINE 5% (PATCH) 1 EA PATCH TP SCH (13:20)
--- NOTE | 2017-10-29 16:02 | NUR ---
GPS RN NOTE: PT COMPLAINING OF LEFT HIP PAIN 02/19 NORCO 5-325 MG PO PRN GIVEN WILL CONTINUE MONITORING
[2017-10-29 16:25] VITALS: BP 176/76
--- NOTE | 2017-10-29 19:30 | NUR ---
RECEIVED PATIENT IN BED AWAKE. AO X 2, ABLE TO MAKE NEEDS KNOWN. NO ACUTE DISTRESS NOTED. DENIES ANY PAIN AT THIS TIME. CALM AND COOPERATIVE. NO SI/HI. SAFETY REMINDERS GIVEN. ON LOW BED WITH BILATERAL UPPER SIDE RAILS UP. CALL CANTU WITHIN EASY REACH. WILL CONTINUE TO MONITOR.
[2017-10-29 20:00] VITALS: BP 144/62
[2017-10-29 20:08] VITALS: BP 144/62
[2017-10-30] MEDS: HYDROCODONE/APAP 5/325MG 1 EACH TABLET PO PRN ×3 (05:34→17:58)
[2017-10-30] MEDS: hydrALAZINE HCL 25 MG TABLET PO SCH ×2 (05:35→12:06)
--- NOTE | 2017-10-30 06:13 | NUR ---
PATIENT ASLEEP, EASILY AROUSABLE. RESPIRATIONS EVEN. NO SIGNS OF PAIN NOTED. DUE MEDS GIVEN WITH NO ASE NOTED. NEEDS ATTENDED. SAFETY PRECAUTIONS AND COMFORT MEASURES IN PLACE. WILL GIVE REPORT TO DAY SHIFT FOR CONTINUITY OF CARE.
[2017-10-30 08:00] VITALS: BP 150/64
[2017-10-30] MEDS: DULOXETINE HCL 30 MG CAPSULE.DR PO SCH (08:28)
[2017-10-30] MEDS: GABAPENTIN 300 MG CAPSULE PO SCH ×4 (08:28→20:38)
[2017-10-30] MEDS: LISINOPRIL (5MG) 5 MG TABLET PO SCH (08:29)
[2017-10-30] MEDS: FAMOTIDINE (20 MG) 20 MG TABLET PO SCH (08:29)
[2017-10-30] MEDS: OLANZAPINE 5 MG/TAB.RAPDIS PO SCH ×2 (08:29→20:37)
[2017-10-30] MEDS: FOLIC ACID 1 MG TABLET PO SCH (08:29)
[2017-10-30] MEDS: FERROUS SULFATE (325 MG) 325 MG/TAB TABLET PO SCH ×3 (08:29→17:27)
[2017-10-30] MEDS: ASPIRIN 325 MG TABLET PO SCH (08:29)
[2017-10-30] MEDS: LIDOCAINE 5% (PATCH) 1 EA PATCH TP SCH (12:07)
--- NOTE | 2017-10-30 12:08 | NUR ---
GPS RN NOTE: PT COMPLAINING OF LEFT HIP PAIN 02/19 NORCO 5-325 MG PO PRN GIVEN WILL CONTINUE MONITORING
[2017-10-30] MEDS: hydrALAZINE HCL 50 MG TABLET PO SCH ×2 (13:00→20:39)
[2017-10-30 16:00] VITALS: BP 149/61
[2017-10-30 19:40] VITALS: BP 149/68
[2017-10-30 20:00] VITALS: BP 149/68
[2017-10-31] MEDS: hydrALAZINE HCL 50 MG TABLET PO SCH ×3 (05:44→21:27)
--- NOTE | 2017-10-31 06:41 | NUR ---
RN GPS CLOSING NOTES PATIENT IN BED , RESPIRATIONS EVEN AND UNLABORED, DENIES ANY PAIN OR DISCOMFORT AT THIS TIME AND THROUGH SHIFT, PATIENT SLEPT WELL THROUGH SHIFT, ALL NEEDS ATTENDED, PATIENT REMAINS COMFORTABLE AT THIS TIME, WILL CONTINUE TO MONITOR AND ENDORSE TO NEXT SHIFT.
[2017-10-31 08:00] VITALS: BP 150/68
[2017-10-31] MEDS: GABAPENTIN 300 MG CAPSULE PO SCH ×4 (08:18→21:28)
[2017-10-31] MEDS: HYDROCODONE/APAP 5/325MG 1 EACH TABLET PO PRN ×2 (08:18→16:54)
[2017-10-31] MEDS: DULOXETINE HCL 30 MG CAPSULE.DR PO SCH (08:18)
[2017-10-31] MEDS: FERROUS SULFATE (325 MG) 325 MG/TAB TABLET PO SCH ×3 (08:18→16:54)
[2017-10-31] MEDS: FAMOTIDINE (20 MG) 20 MG TABLET PO SCH (08:19)
[2017-10-31] MEDS: FOLIC ACID 1 MG TABLET PO SCH (08:19)
[2017-10-31] MEDS: ASPIRIN 325 MG TABLET PO SCH (08:19)
[2017-10-31] MEDS: OLANZAPINE 5 MG/TAB.RAPDIS PO SCH ×2 (08:19→21:28)
[2017-10-31] MEDS: LISINOPRIL (5MG) 5 MG TABLET PO SCH (08:19)
[2017-10-31] MEDS: LIDOCAINE 5% (PATCH) 1 EA PATCH TP SCH (12:30)
[2017-10-31 16:00] VITALS: BP 156/64
[2017-10-31] MEDS: LORAZEPAM 0.5 MG TABLET PO PRN (16:54)
--- NOTE | 2017-10-31 16:57 | NUR ---
RN NOTE:MEDICATED WITH ATIVAN 0.5MG PO FOR ANXIETY WILL CONTINUE TO MONITOR .AND MEDICATED WITH NORCO 5/325MG FOR PAIN WILL CONTINUE TO MONITOR PAIN LEVEL 10/10 .
[2017-10-31 20:00] VITALS: BP 140/68
[2017-10-31 23:00] VITALS: BP 135/68
[2017-11-01] MEDS: hydrALAZINE HCL 50 MG TABLET PO SCH ×3 (05:00→21:39)
[2017-11-01] MEDS: FAMOTIDINE (20 MG) 20 MG TABLET PO SCH (07:30)
[2017-11-01 08:00] VITALS: BP 151/76
[2017-11-01] MEDS: DULOXETINE HCL 30 MG CAPSULE.DR PO SCH (08:50)
[2017-11-01] MEDS: LORAZEPAM 0.5 MG TABLET PO PRN ×2 (08:50→13:48)
[2017-11-01] MEDS: HYDROCODONE/APAP 5/325MG 1 EACH TABLET PO PRN ×2 (08:50→18:15)
[2017-11-01] MEDS: FERROUS SULFATE (325 MG) 325 MG/TAB TABLET PO SCH ×3 (08:51→17:00)
[2017-11-01] MEDS: FOLIC ACID 1 MG TABLET PO SCH (08:51)
[2017-11-01] MEDS: ASPIRIN 325 MG TABLET PO SCH (08:52)
[2017-11-01] MEDS: GABAPENTIN 300 MG CAPSULE PO SCH ×4 (08:52→21:40)
[2017-11-01] MEDS: LISINOPRIL (5MG) 5 MG TABLET PO SCH (08:52)
[2017-11-01] MEDS: OLANZAPINE 5 MG/TAB.RAPDIS PO SCH ×2 (08:52→21:40)
--- NOTE | 2017-11-01 08:53 | NUR ---
RN NOTE :PATIENT MEDICATED WITH NORCO FOR PAIN 10/10 WILL CONTINUE TO MONITOR .
--- NOTE | 2017-11-01 09:30 | NUR ---
WILL CONTINUE TO MONITOR FOR ANXIETY .
--- NOTE | 2017-11-01 09:30 | NUR ---
RN NOTE:PATIENT MEDICATED WITH ATIVAN 0.5MG .
[2017-11-01] MEDS: LIDOCAINE 5% (PATCH) 1 EA PATCH TP SCH (12:30)
[2017-11-01 16:00] VITALS: BP 156/72
[2017-11-01 21:42] VITALS: BP 151/70
[2017-11-01] MEDS: TEMAZEPAM 7.5 MG CAPSULE PO PRN (22:55)
[2017-11-02] MEDS: hydrALAZINE HCL 50 MG TABLET PO SCH ×3 (05:16→20:41)
[2017-11-02] MEDS: HYDROCODONE/APAP 5/325MG 1 EACH TABLET PO PRN ×3 (06:18→17:31)
[2017-11-02 08:00] VITALS: BP 152/65
[2017-11-02] MEDS: FERROUS SULFATE (325 MG) 325 MG/TAB TABLET PO SCH ×3 (09:15→17:31)
[2017-11-02] MEDS: GABAPENTIN 300 MG CAPSULE PO SCH ×4 (09:15→20:42)
[2017-11-02] MEDS: FOLIC ACID 1 MG TABLET PO SCH (09:15)
[2017-11-02] MEDS: DULOXETINE HCL 30 MG CAPSULE.DR PO SCH (09:15)
[2017-11-02] MEDS: ASPIRIN 325 MG TABLET PO SCH (09:17)
[2017-11-02] MEDS: OLANZAPINE 5 MG/TAB.RAPDIS PO SCH ×2 (09:17→20:42)
[2017-11-02] MEDS: FAMOTIDINE (20 MG) 20 MG TABLET PO SCH (09:17)
[2017-11-02] MEDS: LORAZEPAM 0.5 MG TABLET PO PRN ×2 (09:17→17:31)
[2017-11-02] MEDS ORDERED: CLONIDINE HCL 0.1 MG TABLET PO PRN (09:30)
[2017-11-02] MEDS: ACETAMINOPHEN 325 MG TABLET PO PRN (09:39)
[2017-11-02] MEDS: LIDOCAINE 5% (PATCH) 1 EA PATCH TP SCH (12:01)
[2017-11-02 16:06] VITALS: BP 133/58
--- NOTE | 2017-11-02 18:20 | NUR ---
MS RN ON BED, NO DISTRESS NOTED,ALL NEEDS ATTENDED.
[2017-11-02 19:52] VITALS: BP 158/68
[2017-11-02 20:00] VITALS: BP 158/68
[2017-11-02] MEDS: TEMAZEPAM 7.5 MG CAPSULE PO PRN (20:42)
[2017-11-03] MEDS: hydrALAZINE HCL 50 MG TABLET PO SCH ×2 (05:18→12:31)
[2017-11-03 08:00] VITALS: BP 137/80
--- NOTE | 2017-11-03 08:00 | NUR ---
RN-CO: DR CH ORDERED TO DISCONTINUE HOLD AND DISCHARGE PATIENT HOME TO HER ANCE.
[2017-11-03] MEDS: HYDROCODONE/APAP 5/325MG 1 EACH TABLET PO PRN (08:24)
[2017-11-03] MEDS: FERROUS SULFATE (325 MG) 325 MG/TAB TABLET PO SCH ×2 (08:25→12:30)
[2017-11-03] MEDS: FAMOTIDINE (20 MG) 20 MG TABLET PO SCH (08:25)
[2017-11-03] MEDS: FOLIC ACID 1 MG TABLET PO SCH (08:25)
[2017-11-03] MEDS: GABAPENTIN 300 MG CAPSULE PO SCH ×2 (08:25→12:30)
[2017-11-03] MEDS: ASPIRIN 325 MG TABLET PO SCH (08:25)
[2017-11-03] MEDS: DULOXETINE HCL 30 MG CAPSULE.DR PO SCH (08:25)
[2017-11-03] MEDS: OLANZAPINE 5 MG/TAB.RAPDIS PO SCH (08:28)
[2017-11-03] MEDS ORDERED: LISINOPRIL (5MG) 5 MG TABLET PO SCH (09:00)
--- NOTE | 2017-11-03 11:22 | NUR ---
Discharge Note: Patient will be discharged home to [address] [facility] [address] [place], [address]. Patient will be picked up by her significant other, Antelmo Russell [phone] at 11:am in his private personal vehicle. Pt agreed to discharge plan and agreed to discharge plan. Upon discharge, patient was in distress and stating "I need my pain medication now." Pt has an [facility] today [facility]. Patient denied suicidal and homicidal ideation. Pts will schedule a follow up appointment with coal pulverizer operator Dr. Danna Segura. [address] [facility] [address] [place] [address], . [facility] [address] [place] [address] Dr Qureshi [address], [place] to follow up with a psychiatrist. Patient was provided referrals to address her substance and alcohol use. Patient was referred to the [address] [address] / and was encouraged to present at 9am on Tuesday, November 07, 2017. Additional resources included [facility] [address] [place] [address] and [facility] [address] [place] [address] . The multidisciplinary exitcare form was done, printed, signed, and given to the patient.
[2017-11-03] MEDS: LORAZEPAM 0.5 MG TABLET PO PRN (11:27)
--- NOTE | 2017-11-03 11:32 | NUR ---
GPS RN NOTE: PATIENT FEELING ANXIOUS ATIVAN 0.5MG .PO PRN GIVEN WILL CONTINUE MONITORING
[2017-11-03] MEDS: LIDOCAINE 5% (PATCH) 1 EA PATCH TP SCH (12:30)
[2017-11-03 12:31] VITALS: BP 187/79
--- NOTE | 2017-11-03 12:40 | NUR ---
GPS DISCHARGE NOTE: PATIENT DISCHARGE TODAY HOME PICKED UP BY HER ADAM, PT IN STABLE CONDITION NO S/S DISTRESS NOTED, PT AMBULATORY WITH WALKER , DR CH NOTIFIED WITH T.O. ORDERS TO DC PT HOME AND TO CONTINUE MEDICATION DC PRNS, DR WITT AWARE MEDICATION RECONCILIATION DONE AND GIVEN TO PT. ALL BELONGING RETURNED TO PT, WALKER WAS PROVIDED AND GIVEN TO PT. EXPLAIN PT MEDICATIONS MGMT PT VERBALIZED UNDERSTANDING, PT WILL FOLLOW UP WITH PAIN MGMT. PT DENIES SI/HI , SKIN CHECKED AND PICTURE PLACED IN THE CHART.
[2017-11-08] MEDS ORDERED: OLANZAPINE 5 MG/TAB.RAPDIS PO SCH (21:00)
[2017-11-09] MEDS ORDERED: DULOXETINE HCL 30 MG CAPSULE.DR PO SCH (09:00)
== END 2017-11-03 12:40 | disposition home or self-care (01) | DRG 885 ==
LOC: ER 14:58 → GPS 18:12
PROVIDERS: ADMIT Psychiatry & Neurology Psychiatry; ATTEND Registered Nurse
DX: F39 Unspecified mood [affective] disorder (principal); F03.90 Unspecified dementia, unspecified severity, without behavioral disturbance, psychotic disturbance, mood disturbance, and anxiety; F32.3 Major depressive disorder, single episode, severe with psychotic features; E44.1 Mild protein-calorie malnutrition; D63.8 Anemia in other chronic diseases classified elsewhere; E03.9 Hypothyroidism, unspecified; M19.90 Unspecified osteoarthritis, unspecified site; Z68.25 Body mass index [BMI] 25.0-25.9, adult; G89.29 Other chronic pain; M25.552 Pain in left hip; I10 Essential (primary) hypertension; F41.9 Anxiety disorder, unspecified; Z91.81 History of falling
CPT/HCPCS: 36415; 80048-TC; 80053-TC; 80061-TC; 80076-TC; 85025-TC; 87081-TC; A4606; G0480; J1630; Z7610

== ENCOUNTER 2017-11-08 04:12 | Inpatient (IN) | payer MEDICARE ==
[~2017-11-08] VITALS: Ht 154.9 cm; Wt 61.2 kg
[~2017-11-08 04:12] MED LIST changes: +ACET-868 PO; +HYDR-552 PO; -LOSA25TA13 PO; +MAG30ORA PO; -SENN-18 PO; -TEMA15CA PO; +ZOLP5TAB2 PO
--- NOTE | 2017-11-08 04:23 | NUR ---
PT BIB [facility] WITH A C/O ETOH. PT KEEPS SAYING "PLEASE HELP ME". PT IS ON THE MONITOR AND CONTINUOUS PULSE OX. PT REC'D WARM BLANKETS. PT APPEARS ETOH.
[2017-11-08] MEDS ORDERED: OLANZAPINE 5 MG TABLET ONE (05:00)
[2017-11-08] MEDS ORDERED: OLANZAPINE 5 MG TABLET PO ONE (05:00)
[2017-11-08 05:03] LABS: BASOPHILS # (AUTO) 0.1 /CMM (0.0-0.2); BASOPHILS % (AUTO) 1.8 % (0.0-2.0); EOSINOPHILS % (AUTO) 1.4 % (0.0-6.0); HEMATOCRIT 36 % (33-45); HEMOGLOBIN 12.2 g/dL (11.5-14.8); LYMPHOCYTES # (AUTO) 1.5 /CMM (0.8-4.8); LYMPHOCYTES % (AUTO) 31.9 % (20.0-44.0); MEAN CORPUSCULAR HGB CONC 34 g/dl (31.0-36.0); MEAN CORPUSCULAR VOLUME 93 fL (82-100); MONOCYTES # (AUTO) 0.4 /CMM (0.1-1.30); MONOCYTES % (AUTO) 7.8 % (2.0-12.0); NEUTROPHILS # (AUTO) 2.6 /CMM (1.8-8.9); NEUTROPHILS % (AUTO) 57.1 % (43.0-81.0); PLATELET COUNT (AUTO) 310 /CMM (150-450); RDW COEFFICIENT OF VARIATION 14.8 (11.5-15.0); RED BLOOD CELL COUNT(AUTO) 3.92 MIL/uL (4.0-5.2); WHITE BLOOD COUNT (AUTO) 4.7 K/uL (4.3-11.0)
[2017-11-08] MEDS ORDERED: ONDANSETRON 4 MG TAB.RAPDIS ONE (05:09)
--- NOTE | 2017-11-08 05:14 | NUR ---
PT REC'D MEDICATION ORDERED. PT KEEPS YELLING; "HELP ME, I'M SCARED"
[2017-11-08 05:29] LABS: ALANINE AMINOTRANSFERASE 31 U/L (12-78); ALBUMIN 3.9 g/dL (3.4-5.0); ALCOHOL, BLOOD 116 mg/dL (0-0); ALKALINE PHOSPHATASE 108 U/L (46-116); ASPARTATE AMINOTRANSFERASE 22 U/L (15-37); BILIRUBIN,DIRECT 0.1 mg/dL (0.0-0.2); BILIRUBIN,TOTAL 0.2 mg/dL (0.2-1.0); CALCIUM, SERUM 8.9 mg/dL (8.5-10.1); CARBON DIOXIDE 27 mmol/L (21-32); CHLORIDE 110 mmol/L (98-107); CREATININE 0.5 mg/dL (0.6-1.3); GLUCOSE 96 mg/dL (74-106); POTASSIUM 3.8 mmol/L (3.5-5.1); SALICYLATE 9.1 mg/dL (2.8-20.0); SODIUM SERUM 148 mmol/L (136-145); TOTAL PROTEIN, SERUM 6.9 g/dL (6.4-8.2); UREA NITROGEN, BLOOD 13 mg/dL (7-18)
[2017-11-08] MEDS ORDERED: ONDANSETRON 4 MG TAB.RAPDIS SL ONE (05:30)
--- NOTE | 2017-11-08 05:30 | NUR ---
PT MOVED FROM BED #14 TO BED #7.
[2017-11-08] MEDS ORDERED: OLANZAPINE 10 MG VIAL IM ONE ×2 (05:45→06:00)
--- NOTE | 2017-11-08 06:00 | NUR ---
IN AND OUT CATH COMPLETED AND URINE SAMPLE SENT TO THE LAB.
--- NOTE | 2017-11-08 07:10 | NUR ---
REPORT GIVEN TO SUSHIL SYKES FOR BRI.
--- NOTE | 2017-11-08 07:13 | NUR ---
BREAKFAST TRAY ORDERED FROM [facility]
--- NOTE | 2017-11-08 07:29 | NUR ---
CALLED PATRICIA JEFFERSW FOR PSYCH EVAL
[2017-11-08 08:10] LABS: APPEARANCE,URINE CLEAR (CLEAR); BILIRUBIN,URINE NEGATIVE (NEGATIVE); BLOOD, URINE NEGATIVE Ery/uL (NEGATIVE); COLOR,URINE YELLOW (YELLOW); KETONES,URINE NEGATIVE (NEGATIVE); LEUKOCYTE ESTERASE ,URINE NEGATIVE (NEGATIVE); NITRITE, URINE NEGATIVE (NEGATIVE); PROTEIN,URINE NEGATIVE (NEGATIVE); UGLUCOSE NEGATIVE (NEGATIVE); UROBILINOGEN,URINE 0.2 EU/dL (0.2)
[2017-11-08 08:25] LABS: ACETAMINOPHEN 0 ug/ml (10-30)
--- NOTE | 2017-11-08 09:00 | NUR ---
LEFT MESSAGE FOR ART FOR PSYCH EVAL
--- NOTE | 2017-11-08 09:21 | NUR ---
talked to tae worley, on his way
--- NOTE | 2017-11-08 11:14 | NUR ---
REPORT GIVEN TO KRIS LING FOR BRI
[2017-11-08] MEDS ORDERED: MAGNESIUM HYDROXIDE 30 ML UDC PO PRN (13:30)
[2017-11-08] MEDS ORDERED: MAG HYDROX/AL HYDROX/SIMETH 30 ML UDC PO PRN (13:30)
[2017-11-08 16:00] VITALS: BP 156/78
[2017-11-08] MEDS ORDERED: ACETAMINOPHEN 325 MG TABLET PO PRN (16:30)
[2017-11-08] MEDS: GABAPENTIN 300 MG CAPSULE PO SCH ×2 (17:32→21:36)
[2017-11-08] MEDS: FERROUS SULFATE (325 MG) 325 MG/TAB TABLET PO SCH (17:32)
--- NOTE | 2017-11-08 18:00 | NUR ---
GPA/RN-NOTES ADMITTED 73 FEMALE PATIENT FROM [facility] ER. PATIENT IS UNDER THE CARE OF DR. DICK AND RAE LEES, BOTH WERE AWARE OF THE ADMISSION WITH ORDERS. UPON FACE TO FACE ASSESSMENT. PATIENT STATED" I DON'T KNOW WHY I'M HERE BUT YES I'M DEPRESSED". PATIENT DENIES SI/HI ,NO VISUAL/AUDITORY HALLUCINATION AT THIS TIME.CONTRA BAND AND FULL BODY ASSESSMENT DONE. PATIENT SIGNIFICANT OTHER ROSS WAS MADE AWARE OF PATIENT ADMISSION.PATIENT WAS ORIENTED TO THE UNIT AND UNIT POLICIES. MRSA SWAB OF THE NARES DONE. PATIENT RIGHTS WAS DISCUSSED WITH THE PATIENT AND THE BOOKLET WAS GIVEN TO HER. PATIENT WAS CALM AND COOPERATIVE DURING THE ADMISSION PROCESS.
[2017-11-08] MEDS: HYDROCODONE/APAP 5/325MG 1 EACH TABLET PO PRN (19:49)
--- NOTE | 2017-11-08 19:50 | NUR ---
GPS-RN PATIENT C/O PAIN ON HER LEFT HIP ON A PAIN SCALE OF 9/10 AND REQUESTED FOR NORCO. ADMINISTERED NORCO 5/325MG PO ORDERED. WILL CONTINUE TO MONITOR.
[2017-11-08 20:01] VITALS: BP 161/75
[2017-11-08] MEDS ORDERED: OLANZAPINE 5 MG/TAB.RAPDIS PO SCH (21:00)
[2017-11-08] MEDS: hydrALAZINE HCL 25 MG TABLET PO SCH (21:36)
[2017-11-08] MEDS: OLANZAPINE 5 MG/TAB.RAPDIS PO SCH (21:36)
[2017-11-08] MEDS: TEMAZEPAM 7.5 MG CAPSULE PO PRN (22:08)
[2017-11-09] MEDS: HYDROCODONE/APAP 5/325MG 1 EACH TABLET PO PRN ×3 (03:45→16:22)
--- NOTE | 2017-11-09 03:45 | NUR ---
GPS-RN PATIENT C/O PAIN ON HER UPPER NECK RADIATING TO BACK OF THE HEAD ON A PAIN SCALE OF 9/10 AND REQUESTED FOR NORCO. ADMINISTERED NORCO 5/325MG PO ORDERED. WILL CONTINUE TO MONITOR.
[2017-11-09] MEDS: hydrALAZINE HCL 25 MG TABLET PO SCH ×3 (04:27→21:05)
[2017-11-09 07:18] LABS: ALANINE AMINOTRANSFERASE 30 U/L (12-78); ALBUMIN 3.5 g/dL (3.4-5.0); ALKALINE PHOSPHATASE 102 U/L (46-116); ASPARTATE AMINOTRANSFERASE 21 U/L (15-37); BILIRUBIN,TOTAL 0.9 mg/dL (0.2-1.0); CALCIUM, SERUM 8.8 mg/dL (8.5-10.1); CARBON DIOXIDE 29 mmol/L (21-32); CHLORIDE 107 mmol/L (98-107); CREATININE 0.5 mg/dL (0.6-1.3); GLUCOSE 98 mg/dL (74-106); POTASSIUM 3.4 mmol/L (3.5-5.1); SODIUM SERUM 144 mmol/L (136-145); TOTAL PROTEIN, SERUM 6.4 g/dL (6.4-8.2); UREA NITROGEN, BLOOD 11 mg/dL (7-18)
[2017-11-09 07:21] LABS: CHOLESTEROL 183 mg/dL (<200); HDL CHOLESTEROL 67 mg/dL (40-60); LDL 100 mg/dL (0-99); TRIGLYCERIDES 76 mg/dL (30-150)
[2017-11-09 08:06] VITALS: BP 170/74
[2017-11-09] MEDS: GABAPENTIN 300 MG CAPSULE PO SCH ×4 (08:09→21:04)
[2017-11-09] MEDS: FERROUS SULFATE (325 MG) 325 MG/TAB TABLET PO SCH ×3 (08:10→16:23)
[2017-11-09] MEDS: OLANZAPINE 5 MG/TAB.RAPDIS PO SCH ×2 (08:10→21:05)
[2017-11-09] MEDS: CLONIDINE HCL 0.1 MG TABLET PO PRN (08:10)
[2017-11-09] MEDS: LORAZEPAM 0.5 MG TABLET PO PRN ×2 (08:10→15:23)
[2017-11-09] MEDS: FAMOTIDINE (20 MG) 20 MG TABLET PO SCH (08:10)
--- NOTE | 2017-11-09 08:10 | NUR ---
GPS/RN PATIENT IS EXTREMELY ANXIOUS AND CRYING INTERMITTENTLY,ADMINISTERED ATIVAN 0.5 MG , WILL CONTINUE TO MONITOR.
--- NOTE | 2017-11-09 08:10 | NUR ---
GPS/RN BP 170/70, ADMINISTERED CLONODINE 0.1 MG, NO MAJOR DISTRESS NOTED, WILL CONTINUE TO MONITOR
[2017-11-09] MEDS: DULOXETINE HCL 30 MG CAPSULE.DR PO SCH (08:25)
[2017-11-09] MEDS: ACETAMINOPHEN 325 MG TABLET PO PRN ×2 (08:26→15:23)
[2017-11-09] MEDS: FOLIC ACID 1 MG TABLET PO SCH (08:26)
[2017-11-09] MEDS: ASPIRIN 325 MG TABLET PO SCH (08:26)
--- NOTE | 2017-11-09 08:26 | NUR ---
GPS/RN PATIENT REPORTS HIP PAIN, ADMINISTERED TYLENOL 650 MG, WILL CONTINUE TO MONITOR.
[2017-11-09] MEDS ORDERED: DULOXETINE HCL 30 MG CAPSULE.DR PO SCH (09:00)
[2017-11-09 09:30] VITALS: BP 128/65
[2017-11-09] MEDS ORDERED: POTASSIUM CHLORIDE 20 MEQ TAB.PRT.SR PO SCH (09:30)
--- NOTE | 2017-11-09 09:52 | NUR ---
PT RETURNING TO UNIT WITHIN 30 DAYS OF INITIAL DISCHARGE: JOSE L has reviewed this patients psychosocial dated 09/29/17 and can attest to the accuracy of the information therein. There have been no changes since her last assessment. Pt. still appears agitated, disorganized, and yelling she is in pain. Patient's mood and affect are anxious as she kept stating that she wants medication for excruciating pain and kept yelling "HELP ME" to nursing staff. Pt's. insight and judgement are poor. Pt. denies visual/ auditory hallucinations. Pt. denies suicidal/homicidal ideations. JOSE L will initiate probate conservatorship per MD recommendation. Addendum: 11/09/17 at 0958 by AMAIRANI DOMINGO Pt has a history of substance abuse and was under the influence of ETOH when she was admitted to the ER.
--- NOTE | 2017-11-09 10:18 | NUR ---
GPS/RN PATIENT REPORTS HIP PAIN 01/19, ADMINISTERED NORCO 5/325 1 TAB, WILL CONTINUE TO MONITOR.
--- NOTE | 2017-11-09 13:20 | NUR ---
GPS/RN PATIENT BP 107/57, HR 57, HELD HYDRALAZINE 25 DUE TO DECREASED BP, WILL CONTINUE TO MONITOR.
[2017-11-09 13:21] VITALS: BP 107/57
--- NOTE | 2017-11-09 15:23 | NUR ---
GPS/RN PATIENT REPORTS HIP PAIN, ADMINISTERED TYLENOL 650 MG, WILL CONTINUE TO MONITOR.
--- NOTE | 2017-11-09 15:25 | NUR ---
GPS/RN PATIENT IS ANXIOUS AND AGITATED, ADMINISTERED ATIVAN 0.5 MG , WILL CONTINUE TO MONITOR.
[2017-11-09 16:16] VITALS: BP 142/77
--- NOTE | 2017-11-09 16:25 | NUR ---
GPS/RN PATIENT REPORTS HIP PAIN 01/19, ADMINISTERED NORCO 5/325 1 TAB, WILL CONTINUE TO MONITOR.
[2017-11-09 20:00] VITALS: BP 135/70
[2017-11-09] MEDS: TEMAZEPAM 7.5 MG CAPSULE PO PRN (21:04)
[2017-11-10] MEDS: hydrALAZINE HCL 25 MG TABLET PO SCH ×3 (05:08→21:12)
[2017-11-10] MEDS: HYDROCODONE/APAP 5/325MG 1 EACH TABLET PO PRN ×3 (05:20→22:05)
[2017-11-10 07:03] LABS: CALCIUM, SERUM 8.5 mg/dL (8.5-10.1); CARBON DIOXIDE 27 mmol/L (21-32); CHLORIDE 109 mmol/L (98-107); CREATININE 0.6 mg/dL (0.6-1.3); GLUCOSE 134 mg/dL (74-106); POTASSIUM 3.7 mmol/L (3.5-5.1); SODIUM SERUM 145 mmol/L (136-145); UREA NITROGEN, BLOOD 21 mg/dL (7-18)
[2017-11-10 08:00] VITALS: BP 135/72
[2017-11-10] MEDS: FERROUS SULFATE (325 MG) 325 MG/TAB TABLET PO SCH ×3 (08:06→16:24)
[2017-11-10] MEDS: ASPIRIN 325 MG TABLET PO SCH (08:06)
[2017-11-10] MEDS: OLANZAPINE 5 MG/TAB.RAPDIS PO SCH ×2 (08:06→21:29)
[2017-11-10] MEDS: GABAPENTIN 300 MG CAPSULE PO SCH ×4 (08:06→21:11)
[2017-11-10] MEDS: FOLIC ACID 1 MG TABLET PO SCH (08:06)
[2017-11-10] MEDS: DULOXETINE HCL 30 MG CAPSULE.DR PO SCH (08:07)
[2017-11-10] MEDS: FAMOTIDINE (20 MG) 20 MG TABLET PO SCH (08:07)
[2017-11-10] MEDS: LORAZEPAM 0.5 MG TABLET PO PRN ×3 (08:38→23:25)
--- NOTE | 2017-11-10 08:40 | NUR ---
GPS/RN PATIENT IS ANXIOUS , ADMINISTERED ATIVAN 0.5 MG , WILL CONTINUE TO MONITOR.
[2017-11-10] MEDS: ACETAMINOPHEN 325 MG TABLET PO PRN (13:37)
--- NOTE | 2017-11-10 15:06 | NUR ---
GPS/RN PATIENT REPORTS BACK PAIN [place] 5 1 TAB, WILL CONTINUE TO MONITOR
[2017-11-10 16:19] VITALS: BP 140/65
[2017-11-10 20:11] VITALS: BP 158/79
--- NOTE | 2017-11-10 21:05 | NUR ---
GPS NOTE. MEDICATION OFFERED, PT REFUSED. STATED " I DON'T WANT IT". WILL CONTINUE TO MONITOR.
--- NOTE | 2017-11-10 21:25 | NUR ---
PT REQUESTING ZYPREXA, STATING " I WANT MY MEDICATION." OLANZAPINE 10MG PO GIVEN ORDERED. WILL CONTINUE TO MONITOR.
--- NOTE | 2017-11-10 23:25 | NUR ---
GPS NOTE. C/O " I AM SO ANXIOUS CAN I HAVE MY ATIVAN, YOU SAID I COULD HAVE IT IN AN HOUR." LORAZEPAM .5 MG PO GIVEN ORDERED. WILL CONTINUE TO MONITOR.
[2017-11-11] MEDS: TEMAZEPAM 7.5 MG CAPSULE PO PRN (00:27)
--- NOTE | 2017-11-11 00:27 | NUR ---
GPS NOTE C/O " CAN YOU GET ME MY SLEEPING MEDICATION." RESTORIL 7.5 MG PO GIVEN ORDERED. WILL CONTINUE TO MONITOR FOR SAFETY.
[2017-11-11] MEDS: hydrALAZINE HCL 25 MG TABLET PO SCH ×3 (05:00→21:27)
[2017-11-11 08:00] VITALS: BP 168/77
[2017-11-11] MEDS: DULOXETINE HCL 30 MG CAPSULE.DR PO SCH (08:36)
[2017-11-11] MEDS: OLANZAPINE 5 MG/TAB.RAPDIS PO SCH ×2 (08:36→21:27)
[2017-11-11] MEDS: GABAPENTIN 300 MG CAPSULE PO SCH ×4 (08:36→21:27)
[2017-11-11] MEDS: ASPIRIN 325 MG TABLET PO SCH (08:36)
[2017-11-11] MEDS: FERROUS SULFATE (325 MG) 325 MG/TAB TABLET PO SCH ×3 (08:36→16:48)
[2017-11-11] MEDS: FOLIC ACID 1 MG TABLET PO SCH (08:36)
[2017-11-11] MEDS: FAMOTIDINE (20 MG) 20 MG TABLET PO SCH (08:36)
[2017-11-11] MEDS: HYDROCODONE/APAP 5/325MG 1 EACH TABLET PO PRN (12:51)
[2017-11-11] MEDS: LORAZEPAM 0.5 MG TABLET PO PRN ×2 (13:58→21:27)
--- NOTE | 2017-11-11 14:58 | NUR ---
GPS RN NOTES NOTIFIED DR MARTÍN LEES REGARDING BUN LEVEL, SAID TO ENCOURAGE FLUID INTAKE.
[2017-11-11 16:00] VITALS: BP 153/97
[2017-11-11 20:00] VITALS: BP 148/72
[2017-11-11] MEDS: ACETAMINOPHEN 325 MG TABLET PO PRN (22:23)
[2017-11-12] MEDS: hydrALAZINE HCL 25 MG TABLET PO SCH ×3 (06:00→20:38)
[2017-11-12 07:58] VITALS: BP 149/76
[2017-11-12] MEDS: HYDROCODONE/APAP 5/325MG 1 EACH TABLET PO PRN ×3 (07:59→20:47)
[2017-11-12] MEDS: OLANZAPINE 5 MG/TAB.RAPDIS PO SCH ×2 (08:00→20:40)
[2017-11-12] MEDS: FAMOTIDINE (20 MG) 20 MG TABLET PO SCH (08:00)
--- NOTE | 2017-11-12 08:00 | NUR ---
GPS/RN PATIENT REPORTS BACK PAIN [place] 5 1 TAB, WILL CONTINUE TO MONITOR
[2017-11-12] MEDS: FERROUS SULFATE (325 MG) 325 MG/TAB TABLET PO SCH ×3 (08:01→16:21)
[2017-11-12] MEDS: FOLIC ACID 1 MG TABLET PO SCH (08:01)
[2017-11-12] MEDS: DULOXETINE HCL 30 MG CAPSULE.DR PO SCH (08:01)
[2017-11-12] MEDS: GABAPENTIN 300 MG CAPSULE PO SCH ×4 (08:01→20:37)
[2017-11-12] MEDS: ASPIRIN 325 MG TABLET PO SCH (08:01)
[2017-11-12] MEDS: LORAZEPAM 0.5 MG TABLET PO PRN ×2 (12:02→19:53)
--- NOTE | 2017-11-12 12:02 | NUR ---
GPS/RN PATIENT IS ANXIOUS , ADMINISTERED ATIVAN 0.5 MG , WILL CONTINUE TO MONITOR.
--- NOTE | 2017-11-12 14:47 | NUR ---
GPS/RN PATIENT REPORTS GENERALIZED PAIN NORCO 5/325 1 TAB, WILL CONTINUE TO MONITOR
[2017-11-12 15:53] VITALS: BP 153/74
[2017-11-12 19:55] VITALS: BP 162/80
--- NOTE | 2017-11-12 19:58 | NUR ---
GPS RN NOTE PT IS ANXIOUS SITTING IN BED. ATIVAN 0.5 MG PO GIVEN. CONTINUE TO MONITOR HER.
--- NOTE | 2017-11-12 20:48 | NUR ---
GPS RN NOTE PT C/O PAIN ALL OVER 11/19. NORCO 1 TAB PO GIVEN. CONTINUE TO MONITOR HER
[2017-11-13] MEDS: hydrALAZINE HCL 25 MG TABLET PO SCH ×3 (05:30→21:07)
[2017-11-13 07:52] VITALS: BP 180/82
[2017-11-13] MEDS: FAMOTIDINE (20 MG) 20 MG TABLET PO SCH (08:19)
[2017-11-13] MEDS: DULOXETINE HCL 30 MG CAPSULE.DR PO SCH (08:19)
[2017-11-13] MEDS: GABAPENTIN 300 MG CAPSULE PO SCH ×4 (08:19→21:07)
[2017-11-13] MEDS: HYDROCODONE/APAP 5/325MG 1 EACH TABLET PO PRN ×3 (08:20→22:13)
[2017-11-13] MEDS: FERROUS SULFATE (325 MG) 325 MG/TAB TABLET PO SCH ×3 (08:20→17:37)
[2017-11-13] MEDS: ASPIRIN 325 MG TABLET PO SCH (08:20)
[2017-11-13] MEDS: FOLIC ACID 1 MG TABLET PO SCH (08:20)
--- NOTE | 2017-11-13 08:20 | NUR ---
RN NOTE:PATIENT MEDICATED WITH ATIVAN AT 8:20 FOR ANXIETY WILL CONTINUE TO MONITOR FOR ANXIETY . Addendum: 11/13/17 at 1804 by RUBINA CARDONA PATIENT MEDICATED AT 1737 WITH ATIVAN FOR ANXIETY AND AT 8:20 MEDICATED WITH NORCO FOR PAIN 03/21 EFFECTIVE AT 920 NO PAIN .
[2017-11-13] MEDS: CLONIDINE HCL 0.1 MG TABLET PO PRN (08:21)
[2017-11-13] MEDS: OLANZAPINE 5 MG/TAB.RAPDIS PO SCH ×2 (08:21→21:07)
--- NOTE | 2017-11-13 12:19 | NUR ---
JOSE L faxed Probate conservatorship forms to Jennifer Miranda [phone] and left a voicemail informing of fax [phone].
--- NOTE | 2017-11-13 14:55 | NUR ---
RN NOTE :AT 1455 PATIENT MEDICATED WITH NORCO FOR PAIN 03/21 AT 1555 NO C/O PAIN .
[2017-11-13 15:56] VITALS: BP 150/82
[2017-11-13] MEDS: LORAZEPAM 0.5 MG TABLET PO PRN (17:37)
[2017-11-13] MEDS: ACETAMINOPHEN 325 MG TABLET PO PRN (19:23)
--- NOTE | 2017-11-13 22:17 | NUR ---
GPS-RN PATIENT C/O PAIN ON HER UPPER NECK RADIATING TO BACK OF HEAD ON A PAIN SCALE OF 9/10 AND REQUESTED FOR NORCO. ADMINISTERED NORCO 5/325MG PO ORDERED. WILL CONTINUE TO MONITOR.
[2017-11-13] MEDS: TEMAZEPAM 7.5 MG CAPSULE PO PRN (22:36)
[2017-11-14] MEDS: ACETAMINOPHEN 325 MG TABLET PO PRN ×2 (01:39→23:26)
[2017-11-14] MEDS: hydrALAZINE HCL 25 MG TABLET PO SCH ×3 (06:30→21:23)
[2017-11-14] MEDS: HYDROCODONE/APAP 5/325MG 1 EACH TABLET PO PRN ×3 (07:12→22:32)
--- NOTE | 2017-11-14 07:13 | NUR ---
GPS-RN PATIENT C/O PAIN ON HER LEFT HIP, ON A PAIN SCALE OF 9/10 AND REQUESTED FOR NORCO. ADMINISTERED NORCO 5/325MG PO ORDERED. WILL CONTINUE TO MONITOR.
[2017-11-14 08:00] VITALS: BP 152/74
[2017-11-14] MEDS: FAMOTIDINE (20 MG) 20 MG TABLET PO SCH (08:54)
[2017-11-14] MEDS: OLANZAPINE 5 MG/TAB.RAPDIS PO SCH ×2 (08:54→21:23)
[2017-11-14] MEDS: GABAPENTIN 300 MG CAPSULE PO SCH ×4 (08:54→21:23)
[2017-11-14] MEDS: FERROUS SULFATE (325 MG) 325 MG/TAB TABLET PO SCH ×3 (08:54→17:06)
[2017-11-14] MEDS: FOLIC ACID 1 MG TABLET PO SCH (08:54)
[2017-11-14] MEDS: DULOXETINE HCL 30 MG CAPSULE.DR PO SCH (08:54)
[2017-11-14] MEDS: ASPIRIN 325 MG TABLET PO SCH (08:54)
[2017-11-14] MEDS: LORAZEPAM 0.5 MG TABLET PO PRN ×2 (10:12→18:49)
[2017-11-14 16:00] VITALS: BP 169/90
[2017-11-14 20:13] VITALS: BP 185/78
[2017-11-14] MEDS: TEMAZEPAM 7.5 MG CAPSULE PO PRN (21:51)
[2017-11-15] MEDS: hydrALAZINE HCL 25 MG TABLET PO SCH ×3 (06:03→21:34)
[2017-11-15 08:00] VITALS: BP 165/97
[2017-11-15] MEDS: FAMOTIDINE (20 MG) 20 MG TABLET PO SCH (09:09)
[2017-11-15] MEDS: GABAPENTIN 300 MG CAPSULE PO SCH ×4 (09:09→21:35)
[2017-11-15] MEDS: DULOXETINE HCL 30 MG CAPSULE.DR PO SCH (09:09)
[2017-11-15] MEDS: ASPIRIN 325 MG TABLET PO SCH (09:09)
[2017-11-15] MEDS: FOLIC ACID 1 MG TABLET PO SCH (09:09)
[2017-11-15] MEDS: OLANZAPINE 5 MG/TAB.RAPDIS PO SCH ×2 (09:09→21:36)
[2017-11-15] MEDS: HYDROCODONE/APAP 5/325MG 1 EACH TABLET PO PRN ×2 (09:09→15:13)
[2017-11-15] MEDS: FERROUS SULFATE (325 MG) 325 MG/TAB TABLET PO SCH ×3 (09:10→16:41)
[2017-11-15] MEDS: LORAZEPAM 0.5 MG TABLET PO PRN ×2 (11:54→21:55)
[2017-11-15 15:57] VITALS: BP 143/69
--- NOTE | 2017-11-15 16:00 | NUR ---
Martine received a phone call from pts Antelmo [phone] stating that he wants pt to be discharged home and that he will not allow for pt to be discharged to a SNF. He also stated that pt did not want to be placed at a SNF and that she needed to go home. MARTINE explained to pts that due to pts several hospitalizations within the past 2 months per MD pt will not be discharged home due to her safety and well-being. Pts was upset stating that he would take care of her and that all she needed was pain medication for her to be okay and not return to hospital. Pts requested that pt have a habeas corpus hearing to appeal pts hold and discharge immediately.
[2017-11-15 20:27] VITALS: BP 165/93
--- NOTE | 2017-11-15 21:55 | NUR ---
GPS NOTE C/O " CAN I GET SOME ATIVAN FOR MY ANXIETY." PER PT. REQUEST ATIVAN 0.5 MG PO GIVEN ORDERED. WILL REEVALUATE AND CONTINUE TO MONITOR FOR SAFETY.
[2017-11-16] MEDS: hydrALAZINE HCL 25 MG TABLET PO SCH ×3 (05:00→21:31)
[2017-11-16] MEDS: GABAPENTIN 300 MG CAPSULE PO SCH ×4 (08:08→21:31)
[2017-11-16] MEDS: FAMOTIDINE (20 MG) 20 MG TABLET PO SCH (08:08)
[2017-11-16] MEDS: DULOXETINE HCL 30 MG CAPSULE.DR PO SCH (08:08)
[2017-11-16] MEDS: FOLIC ACID 1 MG TABLET PO SCH (08:08)
[2017-11-16] MEDS: OLANZAPINE 5 MG/TAB.RAPDIS PO SCH ×2 (08:09→21:31)
[2017-11-16] MEDS: HYDROCODONE/APAP 5/325MG 1 EACH TABLET PO PRN ×2 (08:09→16:32)
[2017-11-16] MEDS: FERROUS SULFATE (325 MG) 325 MG/TAB TABLET PO SCH ×3 (08:09→16:32)
[2017-11-16] MEDS: ASPIRIN 325 MG TABLET PO SCH (08:09)
--- NOTE | 2017-11-16 08:09 | NUR ---
GPS/RN PATIENT REPORTS 8/10 HIP PAIN, ADMINISTERED NORCO 5/325 1 TAB, WILL CONTINUE TO MONITOR.
[2017-11-16] MEDS: AMLODIPINE BESYLATE 5 MG TABLET PO SCH (08:13)
[2017-11-16 08:21] VITALS: BP 162/99
[2017-11-16 09:46] VITALS: BP 177/77
[2017-11-16] MEDS: CLONIDINE HCL 0.1 MG TABLET PO PRN (09:46)
--- NOTE | 2017-11-16 09:47 | NUR ---
GPS/RN PATIENT BP 177/77, ADMINISTERED CLONIDINE 0.1 MG , WILL CONTINUE TO MONITOR.
--- NOTE | 2017-11-16 10:07 | NUR ---
JOSE L re-faxed probate conservatorship application to Bhanu Miranda [phone] from Office of Public Guardian.
--- NOTE | 2017-11-16 10:18 | NUR ---
JOSE L received email from Bhanu Miranda [phone] confirming she received probate conservatorship application Addendum: 11/16/17 at 1019 by AMAIRANI DOMINGO email: [email or web address]
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
--- NOTE | 2017-11-16 11:46 | NUR ---
SW faxed SNF referrals to [facility] [address] [facility] [address] and [facility] [address] [facility] [address] .
[2017-11-16] MEDS: LORAZEPAM 0.5 MG TABLET PO PRN ×2 (13:32→21:31)
--- NOTE | 2017-11-16 13:32 | NUR ---
GPS/RN PATIENT IS ANXIOUS, AGITATED, PACING HALLWAY AND YELLING, ADMINISTERED ATIVAN 0.5 MG, WILL CONTINUE TO MONITOR.
[2017-11-16 16:00] VITALS: BP 140/80
--- NOTE | 2017-11-16 16:36 | NUR ---
GPS/RN PATIENT REPORTS 8/10 HIP PAIN, ADMINISTERED NORCO 5/325 1 TAB, WILL CONTINUE TO MONITOR.
[2017-11-16 20:29] VITALS: BP 119/68
[2017-11-16] MEDS: TEMAZEPAM 7.5 MG CAPSULE PO PRN (21:54)
[2017-11-17] MEDS: hydrALAZINE HCL 25 MG TABLET PO SCH ×3 (05:21→21:44)
[2017-11-17 08:00] VITALS: BP 171/99
[2017-11-17] MEDS: DULOXETINE HCL 30 MG CAPSULE.DR PO SCH (08:00)
[2017-11-17] MEDS: FAMOTIDINE (20 MG) 20 MG TABLET PO SCH (08:00)
[2017-11-17] MEDS: ASPIRIN 325 MG TABLET PO SCH (08:00)
[2017-11-17] MEDS: HYDROCODONE/APAP 5/325MG 1 EACH TABLET PO PRN ×2 (08:01→14:38)
--- NOTE | 2017-11-17 08:01 | NUR ---
rn notes administered narco 5/325 mg po prn for left hip pain 02/19 per patient request. v/s taken bp-171/99, p-98, encouraged to increase fluid intake. continued monitoring.
[2017-11-17] MEDS: GABAPENTIN 300 MG CAPSULE PO SCH ×4 (08:02→21:45)
[2017-11-17] MEDS: OLANZAPINE 5 MG/TAB.RAPDIS PO SCH ×2 (08:02→21:45)
[2017-11-17] MEDS: FERROUS SULFATE (325 MG) 325 MG/TAB TABLET PO SCH ×3 (08:02→17:14)
[2017-11-17] MEDS: FOLIC ACID 1 MG TABLET PO SCH (08:02)
[2017-11-17] MEDS: AMLODIPINE BESYLATE 5 MG TABLET PO SCH (08:03)
[2017-11-17] MEDS: LORAZEPAM 0.5 MG TABLET PO PRN ×2 (09:58→17:14)
--- NOTE | 2017-11-17 09:58 | NUR ---
RN NOTES ADMINISTERED ATIVAN 0.5 MG PO PRN FOR ANXIETY, PER PATIENT REQUEST. V/S TAKEN BP 163/71, P-67, CONTINUED MONITORING. ENCOURAGED PATIENT TO FOLLOW DAILY HYGIENE.
--- NOTE | 2017-11-17 14:38 | NUR ---
RN NOTES ADMINISTERED NARCO 5/325 MG PO PRN FOR LEFT HIP PAIN 12/19 PER PATIENT REQUEST. V/S TAKEN BP-162/95, P-71. CONTINUED MONITORING.
[2017-11-17 15:54] VITALS: BP 162/95
--- NOTE | 2017-11-17 17:14 | NUR ---
RN NOTES ADMINISTERED ATIVAN 0.5 MG PO PRN FOR ANXIETY, PER PATIENT REQUEST, V/S TAKEN BP -162/95, P-66, CONTINUED MONITORING.
[2017-11-17 19:56] VITALS: BP 157/91
[2017-11-17] MEDS: TEMAZEPAM 7.5 MG CAPSULE PO PRN (21:45)
[2017-11-18] MEDS: hydrALAZINE HCL 25 MG TABLET PO SCH ×3 (05:39→20:48)
[2017-11-18] MEDS: HYDROCODONE/APAP 5/325MG 1 EACH TABLET PO PRN ×3 (06:59→20:49)
[2017-11-18 08:00] VITALS: BP 174/74
[2017-11-18] MEDS: FAMOTIDINE (20 MG) 20 MG TABLET PO SCH (08:30)
[2017-11-18] MEDS: FOLIC ACID 1 MG TABLET PO SCH (08:30)
[2017-11-18] MEDS: GABAPENTIN 300 MG CAPSULE PO SCH ×4 (08:30→20:48)
[2017-11-18] MEDS: ASPIRIN 325 MG TABLET PO SCH (08:30)
[2017-11-18] MEDS: FERROUS SULFATE (325 MG) 325 MG/TAB TABLET PO SCH ×3 (08:30→16:46)
[2017-11-18] MEDS: DULOXETINE HCL 30 MG CAPSULE.DR PO SCH (08:30)
[2017-11-18] MEDS: AMLODIPINE BESYLATE 5 MG TABLET PO SCH (08:31)
[2017-11-18] MEDS: OLANZAPINE 5 MG/TAB.RAPDIS PO SCH ×2 (08:35→20:48)
[2017-11-18] MEDS: LORAZEPAM 0.5 MG TABLET PO PRN ×2 (08:50→16:46)
[2017-11-18] MEDS: ACETAMINOPHEN 325 MG TABLET PO PRN (11:10)
[2017-11-18] MEDS ORDERED: AMLODIPINE BESYLATE 5 MG TABLET PO ONE (13:00)
--- NOTE | 2017-11-18 15:00 | NUR ---
MED X1 FOR LT. HIP PAIN AND X1 FOR TOOTHACHE.UP WALKING AT TIMES,NEEDY.,DR. VILLALOBOS SEEING PT.ADDITIONAL NORVASC ADM. PER DR. WITT ORDER.
[2017-11-18 16:00] VITALS: BP 157/86
--- NOTE | 2017-11-18 17:00 | NUR ---
MEDICATED AGAIN WITH ATIVAN PO.
[2017-11-18 20:00] VITALS: BP 168/77
--- NOTE | 2017-11-19 00:16 | NUR ---
Pt has been very easily irritable, quite anxious, reporting continuous hip pain, emotionally labile, & anhedonic but compliant with meds w/o any promptings.
[2017-11-19] MEDS: HYDROCODONE/APAP 5/325MG 1 EACH TABLET PO PRN ×4 (04:52→23:33)
[2017-11-19] MEDS: hydrALAZINE HCL 25 MG TABLET PO SCH ×3 (04:55→20:52)
[2017-11-19 08:00] VITALS: BP 170/86
[2017-11-19] MEDS: LORAZEPAM 0.5 MG TABLET PO PRN ×3 (08:21→21:29)
[2017-11-19] MEDS: ASPIRIN 325 MG TABLET PO SCH (08:22)
[2017-11-19] MEDS: GABAPENTIN 300 MG CAPSULE PO SCH ×4 (08:22→20:52)
[2017-11-19] MEDS: FAMOTIDINE (20 MG) 20 MG TABLET PO SCH (08:22)
[2017-11-19] MEDS: AMLODIPINE BESYLATE 5 MG TABLET PO SCH (08:22)
[2017-11-19] MEDS: DULOXETINE HCL 30 MG CAPSULE.DR PO SCH (08:23)
[2017-11-19] MEDS: FERROUS SULFATE (325 MG) 325 MG/TAB TABLET PO SCH ×3 (08:23→16:03)
[2017-11-19] MEDS: FOLIC ACID 1 MG TABLET PO SCH (08:23)
[2017-11-19] MEDS: OLANZAPINE 5 MG/TAB.RAPDIS PO SCH ×2 (08:24→20:51)
[2017-11-19 16:03] VITALS: BP 140/68
[2017-11-19 19:56] VITALS: BP 144/77
--- NOTE | 2017-11-19 21:29 | NUR ---
GPS-RN PATIENT IS ANXIOUS AND RESTLESS AND PATIENT IS REQUESTING FOR HER ATIVAN. VSS. ADMINISTERED ATIVAN 0.5MG PO ORDERED. WILL CONTINUE TO MONITOR [id number] ROUNDS FOR SAFETY.
[2017-11-19] MEDS: TEMAZEPAM 7.5 MG CAPSULE PO PRN (22:08)
[2017-11-20] MEDS: hydrALAZINE HCL 25 MG TABLET PO SCH ×3 (05:03→21:47)
[2017-11-20 08:00] VITALS: BP 174/76
[2017-11-20] MEDS: GABAPENTIN 300 MG CAPSULE PO SCH ×4 (08:13→21:46)
[2017-11-20] MEDS: HYDROCODONE/APAP 5/325MG 1 EACH TABLET PO PRN ×3 (08:14→21:57)
[2017-11-20] MEDS: FERROUS SULFATE (325 MG) 325 MG/TAB TABLET PO SCH ×3 (08:14→16:36)
[2017-11-20] MEDS: OLANZAPINE 5 MG/TAB.RAPDIS PO SCH ×2 (08:14→21:48)
[2017-11-20] MEDS: FOLIC ACID 1 MG TABLET PO SCH (08:14)
[2017-11-20] MEDS: DULOXETINE HCL 30 MG CAPSULE.DR PO SCH (08:14)
[2017-11-20] MEDS: ASPIRIN 325 MG TABLET PO SCH (08:14)
[2017-11-20] MEDS: FAMOTIDINE (20 MG) 20 MG TABLET PO SCH (08:14)
--- NOTE | 2017-11-20 08:14 | NUR ---
GPS/RN PATIENT REPORTS 8/10 HIP PAIN, ADMINISTERED NORCO 5/325 1 TAB, WILL CONTINUE TO MONITOR.
[2017-11-20] MEDS: AMLODIPINE BESYLATE 5 MG TABLET PO SCH (08:15)
[2017-11-20] MEDS: LORAZEPAM 0.5 MG TABLET PO PRN ×2 (11:25→18:04)
[2017-11-20] MEDS: CLONIDINE HCL 0.1 MG TABLET PO PRN (11:28)
--- NOTE | 2017-11-20 11:35 | NUR ---
GPS/RN PATIENT IS EXTREMELY ANXIOUS AND AGITATED, ADMINISTERED ATIVAN 0.5 MG, WILL CONTINUE TO MONITOR.
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
--- NOTE | 2017-11-20 15:42 | NUR ---
GPS/RN PATIENT REPORTS 8/10 HIP PAIN, ADMINISTERED NORCO 5/325 1 TAB, WILL CONTINUE TO MONITOR.
[2017-11-20 16:00] VITALS: BP 145/84
--- NOTE | 2017-11-20 18:09 | NUR ---
GPS/RN PATIENT IS EXTREMELY ANXIOUS AND AGITATED, ADMINISTERED ATIVAN 0.5 MG, WILL CONTINUE TO MONITOR.
[2017-11-20 19:38] VITALS: BP 127/74
[2017-11-21] MEDS: hydrALAZINE HCL 25 MG TABLET PO SCH ×2 (06:02→12:04)
[2017-11-21] MEDS: HYDROCODONE/APAP 5/325MG 1 EACH TABLET PO PRN ×2 (06:02→12:04)
[2017-11-21] MEDS: LORAZEPAM 0.5 MG TABLET PO PRN (08:46)
[2017-11-21] MEDS: OLANZAPINE 5 MG/TAB.RAPDIS PO SCH (08:46)
[2017-11-21] MEDS: AMLODIPINE BESYLATE 5 MG TABLET PO SCH (08:46)
[2017-11-21] MEDS: FOLIC ACID 1 MG TABLET PO SCH (08:46)
[2017-11-21] MEDS: GABAPENTIN 300 MG CAPSULE PO SCH ×2 (08:47→12:04)
[2017-11-21] MEDS: ASPIRIN 325 MG TABLET PO SCH (08:47)
[2017-11-21] MEDS: FERROUS SULFATE (325 MG) 325 MG/TAB TABLET PO SCH ×2 (08:47→12:04)
[2017-11-21] MEDS: DULOXETINE HCL 30 MG CAPSULE.DR PO SCH (08:47)
[2017-11-21] MEDS: FAMOTIDINE (20 MG) 20 MG TABLET PO SCH (08:47)
[2017-11-21 08:54] VITALS: BP 160/73
[2017-11-21] MEDS: ACETAMINOPHEN 325 MG TABLET PO PRN (10:34)
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
--- NOTE | 2017-11-21 11:40 | NUR ---
JOSE L contacted Marcy Murray [facility] social worker aide [phone] to inform her that pts contacted JOSE L stating that he was going to take pt out of SNF once she arrived.
[2017-11-21 12:04] VITALS: BP 141/76
--- NOTE | 2017-11-21 13:01 | NUR ---
DISCHARGE NOTE: PATIENT LEFT THE UNIT AT 1300 WITH AMBULANCE SERVICE. PATIENT IS ALERT AND ORIENTED X 3. PATIENT DENIES SI/HI DURING DISCHARGE. JING GAVE DISCHARGE ORDER, DC HOLD, AND PRESCRIPTION. BACK SEAM STITCHER MADE AWARE OF DISCHARGE AND AGREES. BELONGINGS LEFT WITH PATIENT. EXIT CARE PAPERS REFUSED TO SIGN BY PATIENT, HOWEVER STILL EXPLAINED. SKIN ASSESSMENT REFUSED.
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
--- NOTE | 2017-12-05 15:01 | NUR ---
JOSE L was contacted by Sasha Back [phone] from [employer] Public Guardian Office who informed JOSE L that forms submitted for Probate Conservatorship were incomplete. Sasha will forward forms to JOSE L to complete and re-submit.
--- NOTE | 2017-12-05 16:03 | NUR ---
JOSE L was contacted by Sasha Back [phone] from [employer] Public Guardian Office who informed JOSE L that based on pts psych diagnosis on previous hospitalizations she does not meet criteria for Probate conservatorship because a psych diagnosis is primary and Dementia is secondary. However, Sasha informed JOSE L that she was going to follow up with medical records to further investigate.
--- NOTE | 2017-12-06 09:49 | NUR ---
JOSE L received voicemail from Sasha Back [phone] from [employer] Public [employer] stating that case for Probate conservatorship will be closed due to pt not meeting criteria for Probate Conservatorship. Sasha also stated that pts is caring for pt and has made himself responsible for pts care.
== END 2017-11-21 13:00 | DRG 885 ==
LOC: ER 04:14 → GPS 10:53
PROVIDERS: ADMIT Psychiatry & Neurology Psychiatry; ATTEND Nurse Practitioner Acute Care
DX: F31.64 Bipolar disorder, current episode mixed, severe, with psychotic features (principal); F11.20 Opioid dependence, uncomplicated; G93.40 Encephalopathy, unspecified; F23 Brief psychotic disorder; E87.0 Hyperosmolality and hypernatremia; F03.90 Unspecified dementia, unspecified severity, without behavioral disturbance, psychotic disturbance, mood disturbance, and anxiety; E03.9 Hypothyroidism, unspecified; F10.20 Alcohol dependence, uncomplicated; F31.9 Bipolar disorder, unspecified; I10 Essential (primary) hypertension; M19.90 Unspecified osteoarthritis, unspecified site; F41.9 Anxiety disorder, unspecified; E87.6 Hypokalemia; E78.5 Hyperlipidemia, unspecified; M79.1 Myalgia; Y90.5 Blood alcohol level of 100-119 mg/100 ml
CPT/HCPCS: 36415; 80048-TC; 80053-TC; 80061-TC; 80076-TC; 80305; 81000-TC; 83735-TC; 85025-TC; 87081-TC; A4606; G0480; J3490; Q0162; Z7610

== ENCOUNTER 2018-03-26 15:50 | Emergency (ER) | payer MEDICARE ==
[~2018-03-26] VITALS: Ht 152.4 cm; Wt 49.4 kg
[~2018-03-26 15:50] MED LIST changes: +HYDR-4384 PO; -HYDR-552 PO
[2018-03-26] MEDS ORDERED: HYDROCODONE/APAP 5/325MG 1 EACH TABLET PO ONE (16:30)
[2018-03-26] MEDS ORDERED: HYDROCODONE/APAP 5/325MG 1 EACH TABLET ONE (16:41)
[2018-03-26] MEDS ORDERED: OLANZAPINE 10 MG VIAL IM ONE (17:00)
[2018-03-26 17:15] LABS: APPEARANCE,URINE Clear (CLEAR); BILIRUBIN,URINE Negative (NEGATIVE); BLOOD, URINE Negative Ery/uL (NEGATIVE); COLOR,URINE Yellow (YELLOW); KETONES,URINE Negative (NEGATIVE); LEUKOCYTE ESTERASE ,URINE Negative (NEGATIVE); NITRITE, URINE Negative (NEGATIVE); PH,URINE 5.5 (5.0-8.0); PROTEIN,URINE Negative (NEGATIVE); UGLUCOSE Negative (NEGATIVE); UROBILINOGEN,URINE 0.2 EU/dL (0.2)
[2018-03-26 17:19] LABS: BASOPHILS # (AUTO) 0.1 /CMM (0.0-0.2); EOSINOPHILS % (AUTO) 0.6 % (0.0-6.0); HEMATOCRIT 36 % (33-45); HEMOGLOBIN 12.2 g/dL (11.5-14.8); LYMPHOCYTES # (AUTO) 2.1 /CMM (0.8-4.8); LYMPHOCYTES % (AUTO) 39.9 % (20.0-44.0); MEAN CORPUSCULAR HGB CONC 34 g/dl (31.0-36.0); MEAN CORPUSCULAR VOLUME 95 fL (82-100); MONOCYTES # (AUTO) 0.6 /CMM (0.1-1.30); NEUTROPHILS # (AUTO) 2.5 /CMM (1.8-8.9); NEUTROPHILS % (AUTO) 47.5 % (43.0-81.0); PLATELET COUNT (AUTO) 272 /CMM (150-450); RDW COEFFICIENT OF VARIATION 15.9 (11.5-15.0); WHITE BLOOD COUNT (AUTO) 5.3 K/uL (4.3-11.0)
[2018-03-26 17:26] LABS: CALCIUM, SERUM 9.1 mg/dL (8.5-10.1); CARBON DIOXIDE 26 mmol/L (21-32); CHLORIDE 105 mmol/L (98-107); CREATININE 0.6 mg/dL (0.6-1.3); GLUCOSE 99 mg/dL (74-106); POTASSIUM 3.5 mmol/L (3.5-5.1); SODIUM SERUM 142 mmol/L (136-145); UREA NITROGEN, BLOOD 28 mg/dL (7-18)
[2018-03-26 17:32] LABS: ACETAMINOPHEN 91 ug/ml (10-30); ALANINE AMINOTRANSFERASE 65 U/L (12-78); ALBUMIN 4.1 g/dL (3.4-5.0); ALKALINE PHOSPHATASE 97 U/L (46-116); ASPARTATE AMINOTRANSFERASE 15 U/L (15-37); BILIRUBIN,DIRECT 0.1 mg/dL (0.0-0.2); BILIRUBIN,TOTAL 0.4 mg/dL (0.2-1.0); TOTAL PROTEIN, SERUM 7.2 g/dL (6.4-8.2)
[2018-03-26 17:38] LABS: SALICYLATE 26.5 mg/dL (2.8-20.0)
[2018-03-26 17:39] LABS: ALCOHOL, BLOOD < 3 mg/dL (0-0)
[2018-03-26 19:17] VITALS: BP 147/74
== END 2018-03-26 19:18 | disposition home or self-care (01) ==
LOC: ER 15:56
DX: M25.552 Pain in left hip (principal); G89.29 Other chronic pain; I10 Essential (primary) hypertension; E03.9 Hypothyroidism, unspecified; F10.10 Alcohol abuse, uncomplicated; Y90.0 Blood alcohol level of less than 20 mg/100 ml; Z79.82 Long term (current) use of aspirin
CPT/HCPCS: 36415; 80048; 80076; 80305; 80329; 81001; 85025; 99284; A4606; G0480 ×2; 81000-TC; Z7610

== ENCOUNTER 2018-05-21 15:31 | Emergency (ER) | END 2018-05-21 19:06 | DX: G89.29 Other chronic pain (principal); M25.552 Pain in left hip; I10 Essential (primary) hypertension; E03.9 Hypothyroidism, unspecified; F10.10 Alcohol abuse, uncomplicated; Y90.9 Presence of alcohol in blood, level not specified; Z88.1 Allergy status to other antibiotic agents; Z60.2 Problems related to living alone; Z79.82 Long term (current) use of aspirin ==

== ENCOUNTER 2018-09-01 18:36 | Inpatient (IN) | payer MEDICARE, MEDICAID ==
[~2018-09-01] VITALS: Ht 157.5 cm; Wt 64.4 kg
[~2018-09-01 18:36] MED LIST changes: +DULO60CA63 PO; +TEMA15CA PO; +TRAZ-182 PO
[2018-09-01] MEDS ORDERED: CHOL100044 PO (18:50)
[2018-09-01] MEDS ORDERED: CYAN10009 PO (18:50)
[2018-09-01] MEDS ORDERED: DOCU-141 PO (18:50)
[2018-09-01] MEDS ORDERED: ACET-2605 PO (18:50)
--- NOTE | 2018-09-01 19:00 | NUR ---
patient presented to the ER [facility], from [facility] c/o left hip pain. On room air, breathing evenly and unlabored. connected to the monitor. Dr. Virk at bedside for eval. kept comfortable, will continue to monitor accordingly.
[2018-09-01 19:08] LABS: BASOPHILS % (AUTO) 0.5 % (0.0-2.0); EOSINOPHILS % (AUTO) 0.5 % (0.0-6.0); HEMATOCRIT 41 % (33-45); HEMOGLOBIN 13.6 g/dL (11.5-14.8); LYMPHOCYTES # (AUTO) 2.1 /CMM (0.8-4.8); LYMPHOCYTES % (AUTO) 28.9 % (20.0-44.0); MEAN CORPUSCULAR HGB CONC 33 g/dl (31.0-36.0); MEAN CORPUSCULAR VOLUME 96 fL (82-100); MONOCYTES # (AUTO) 0.6 /CMM (0.1-1.30); MONOCYTES % (AUTO) 7.8 % (2.0-12.0); NEUTROPHILS # (AUTO) 4.4 /CMM (1.8-8.9); NEUTROPHILS % (AUTO) 62.3 % (43.0-81.0); PLATELET COUNT (AUTO) 267 /CMM (150-450); RED BLOOD CELL COUNT(AUTO) 4.26 MIL/uL (4.0-5.2); WHITE BLOOD COUNT (AUTO) 7.1 K/uL (4.3-11.0)
[2018-09-01 19:16] LABS: CALCIUM, SERUM 9.3 mg/dL (8.5-10.1); CARBON DIOXIDE 31 mmol/L (21-32); CHLORIDE 101 mmol/L (98-107); CREATININE 0.8 mg/dL (0.6-1.3); GLUCOSE 97 mg/dL (74-106); POTASSIUM 3.6 mmol/L (3.5-5.1); SODIUM SERUM 140 mmol/L (136-145); UREA NITROGEN, BLOOD 21 mg/dL (7-18)
--- NOTE | 2018-09-01 19:20 | NUR ---
urine collected and sent to lab.
--- NOTE | 2018-09-01 19:20 | NUR ---
endorsed to Nikki RN for don.
--- NOTE | 2018-09-01 19:21 | NUR ---
REC'D REPORT FROM SUSHIL KAISER FOR BRI
--- NOTE | 2018-09-01 19:25 | NUR ---
PT CONTINUES TO SHOW INCREASED AGITATION. STATES THAT SHE'S "DYING OF A STROKE". PT DOES NOT PRESENT WITH ANY SIGNS OR SX OF STROKE. WILL CONTINUE TO MONITOR AND REASSURE HER.
[2018-09-01 19:27] LABS: ACETAMINOPHEN 2 ug/ml (10-30); ALANINE AMINOTRANSFERASE 27 U/L (12-78); ALCOHOL, BLOOD < 3 mg/dL (0-0); ALKALINE PHOSPHATASE 99 U/L (46-116); ASPARTATE AMINOTRANSFERASE 18 U/L (15-37); BILIRUBIN,DIRECT 0.1 mg/dL (0.0-0.2); BILIRUBIN,TOTAL 0.4 mg/dL (0.2-1.0); TOTAL PROTEIN, SERUM 7.5 g/dL (6.4-8.2)
[2018-09-01 19:33] LABS: SALICYLATE 1.4 mg/dL (2.8-20.0)
--- NOTE | 2018-09-01 19:38 | NUR ---
ANAYA, ADAM VARGAS,
[2018-09-01 19:49] LABS: APPEARANCE,URINE Clear (CLEAR); BILIRUBIN,URINE Negative (NEGATIVE); BLOOD, URINE Moderate Ery/uL (NEGATIVE); COLOR,URINE Yellow (YELLOW); KETONES,URINE Negative (NEGATIVE); LEUKOCYTE ESTERASE ,URINE Negative (NEGATIVE); NITRITE, URINE Negative (NEGATIVE); PH,URINE 6.5 (5.0-8.0); PROTEIN,URINE Negative (NEGATIVE); UGLUCOSE Negative (NEGATIVE); UROBILINOGEN,URINE 0.2 EU/dL (0.2)
--- NOTE | 2018-09-01 19:55 | NUR ---
XRAY AT BEDSIDE
[2018-09-01] MEDS ORDERED: ZIPRASIDONE MESYLATE 20 MG/VIAL VIAL IM ONE ×2 (19:58→20:00)
[2018-09-01 20:06] LABS: BACTERIA,URINE Rare /HPF (None Seen); SQUAMOUS EPITHELIAL CELL,UR Few /HPF (None Seen); WBC,URINE 0-2 /HPF (0-3)
[2018-09-01] MEDS ORDERED: diphenhydrAMINE HCL 50 MG/ML VIAL IV STA (20:46)
[2018-09-01] MEDS ORDERED: diphenhydrAMINE HCL 50 MG/ML VIAL ONE (20:46)
--- NOTE | 2018-09-01 20:51 | NUR ---
REPORT GIVEN TO SUSHIL HUNT FOR 211A FOR BRI
[2018-09-01] MEDS ORDERED: diphenhydrAMINE HCL 50 MG/ML VIAL IM ONE (21:00)
--- NOTE | 2018-09-01 21:15 | NUR ---
IV removed. Catheter intact and site benign. Pressure and 4x4 applied to site. No bleeding noted. PT TRANSFERRED TO FLOOR VIA WC
[2018-09-01] MEDS ORDERED: LORAZEPAM 0.5 MG TABLET PO PRN (22:00)
[2018-09-01] MEDS ORDERED: ACETAMINOPHEN 325 MG TABLET PO PRN (22:00)
[2018-09-01] MEDS ORDERED: MAGNESIUM HYDROXIDE 30 ML UDC PO PRN (22:00)
[2018-09-01] MEDS ORDERED: MAG HYDROX/AL HYDROX/SIMETH 30 ML UDC PO PRN (22:00)
[2018-09-01] MEDS: TEMAZEPAM 7.5 MG CAPSULE PO PRN (22:45)
--- NOTE | 2018-09-01 23:00 | NUR ---
GP RN NOTES: NOTIFIED OF NEW ADMISSION MED RECON, HER STATES MED RECON I WILL DO IT.
[2018-09-02 00:03] VITALS: BP 125/68
--- NOTE | 2018-09-02 00:21 | NUR ---
ADMISSION NOTES ADMITTED THIS 77Y/O FEMALE FROM [facility] ER/ INTIALLY FROM [facility] , PT. ADMITTED 5150 HOLD , PER HOLD VERY ANXIOUS INCREASES AGITATION,SCREAMING YELLING ,VERBALLY ABUSIVE TO STAFF,HITTING, SCRATCHING AND SLAPPING STAFF , UPON FACE TO FACE ASSESSMENT PATIENT IS A&O X-1,2 ANXIOUS , DISHELVED UNCOOPERTIVE, HAS PERIOD OF CONFUSION, HYPERVERBAL , FLAT AFFECT ,EASILY AGITATED , PT.IS POOR HISTORIAN, POOR INSIGHT ,POOR JUDGEMENT ,V/S WNL, NO ACUTE DISTRESS NOTED , MD AWARE AND NOTIFIED OF THE ADMISSION , PT. REFUSED SKIN ASSESSMENT ,ENCOURAGED EXPLAINED RISKS AND BENEFITS BUT STILL REFUSED, ENCOURAGED PT. VERBALIZED ANY FEELING CONCERN TO STAFF, ORIENT TO UNIT POLICY, WILL CONTINUE TO MONITOR FOR Q15, CONTRACT FOR SAFETY AND BEHAVIOR.
[2018-09-02 08:00] VITALS: BP 193/89
[2018-09-02] MEDS ORDERED: LORAZEPAM INJ 2 MG/ML VIAL IM STA (11:08)
--- NOTE | 2018-09-02 11:11 | NUR ---
GPS RN NOTES PATIENT SEEN AND EXAMINED BY DR. VILLALOBOS. WITH NEW ORDERS FOR ZYPREXA IM AND ATIVAN IM. DR. VILLALOBOS SPOKE WITH PATIENT AND PATIENT AGREED TO HAVE MEDICATIONS, WITNESSED BY NURSING STAFF. PHARMACY AWARE. WILL CONTINUE TO MONITOR
[2018-09-02] MEDS ORDERED: OLANZAPINE 10 MG VIAL IM ONE (11:30)
[2018-09-02] MEDS ORDERED: CLONIDINE HCL 0.1 MG TABLET PO PRN (12:30)
[2018-09-02] MEDS ORDERED: MAG HYDROX/AL HYDROX/SIMETH 30 ML UDC PO PRN (12:30)
[2018-09-02] MEDS ORDERED: ACETAMINOPHEN 325 MG TABLET PO PRN (12:30)
[2018-09-02] MEDS: GABAPENTIN 300 MG CAPSULE PO SCH ×2 (12:36→16:06)
[2018-09-02] MEDS ORDERED: GABAPENTIN 300 MG CAPSULE PO SCH (13:00)
[2018-09-02] MEDS: hydrALAZINE HCL 25 MG TABLET PO SCH ×2 (13:30→21:16)
[2018-09-02 16:00] VITALS: BP 149/86
[2018-09-02] MEDS: OLANZAPINE 5 MG/TAB.RAPDIS PO SCH (16:06)
[2018-09-02] MEDS: DOCUSATE SODIUM 100 MG CAPSULE PO SCH (16:06)
[2018-09-02] MEDS: FERROUS SULFATE (325 MG) 325 MG/TAB TABLET PO SCH (16:06)
[2018-09-02 19:57] VITALS: BP 118/75
[2018-09-02 20:00] VITALS: BP 148/75
[2018-09-02] MEDS: TEMAZEPAM 7.5 MG CAPSULE PO PRN (21:16)
[2018-09-02] MEDS ORDERED: DULOXETINE HCL 60 MG PO SCH (22:00)
[2018-09-03] MEDS: HYDROCODONE/APAP 5/325MG 1 EACH TABLET PO PRN ×3 (00:01→13:17)
[2018-09-03] MEDS: hydrALAZINE HCL 25 MG TABLET PO SCH ×3 (05:34→21:16)
[2018-09-03 07:04] LABS: ALANINE AMINOTRANSFERASE 31 U/L (12-78); ALBUMIN 3.4 g/dL (3.4-5.0); ALKALINE PHOSPHATASE 84 U/L (46-116); ASPARTATE AMINOTRANSFERASE 30 U/L (15-37); BILIRUBIN,TOTAL 0.9 mg/dL (0.2-1.0); CALCIUM, SERUM 8.7 mg/dL (8.5-10.1); CARBON DIOXIDE 29 mmol/L (21-32); CHLORIDE 110 mmol/L (98-107); CREATININE 0.5 mg/dL (0.6-1.3); GLUCOSE 103 mg/dL (74-106); POTASSIUM 3.5 mmol/L (3.5-5.1); SODIUM SERUM 146 mmol/L (136-145); TOTAL PROTEIN, SERUM 6.4 g/dL (6.4-8.2); UREA NITROGEN, BLOOD 23 mg/dL (7-18)
[2018-09-03 07:12] LABS: BASOPHILS # (AUTO) 0.1 /CMM (0.0-0.2); EOSINOPHILS % (AUTO) 1.4 % (0.0-6.0); HEMATOCRIT 36 % (33-45); HEMOGLOBIN 12.2 g/dL (11.5-14.8); LYMPHOCYTES # (AUTO) 1.7 /CMM (0.8-4.8); LYMPHOCYTES % (AUTO) 23.6 % (20.0-44.0); MEAN CORPUSCULAR HGB CONC 34 g/dl (31.0-36.0); MEAN CORPUSCULAR VOLUME 98 fL (82-100); MONOCYTES # (AUTO) 0.6 /CMM (0.1-1.30); NEUTROPHILS # (AUTO) 4.6 /CMM (1.8-8.9); PLATELET COUNT (AUTO) 206 /CMM (150-450); RED BLOOD CELL COUNT(AUTO) 3.71 MIL/uL (4.0-5.2); WHITE BLOOD COUNT (AUTO) 7.1 K/uL (4.3-11.0)
[2018-09-03 07:15] LABS: CHOLESTEROL 179 mg/dL (<200); HDL CHOLESTEROL 74 mg/dL (40-60); LDL 94 mg/dL (0-99); TRIGLYCERIDES 85 mg/dL (30-150)
[2018-09-03 08:00] VITALS: BP 162/70
[2018-09-03] MEDS: ASPIRIN 325 MG TABLET PO SCH (08:18)
[2018-09-03] MEDS: CHOLECALCIFEROL 1,000 UNIT TABLET (VIT D3) PO SCH (08:19)
[2018-09-03] MEDS: CYANOCOBALAMIN 500 MCG TABLET PO SCH (08:19)
[2018-09-03] MEDS: FOLIC ACID 1 MG TABLET PO SCH (08:19)
[2018-09-03] MEDS: OLANZAPINE 5 MG/TAB.RAPDIS PO SCH ×2 (08:19→16:53)
[2018-09-03] MEDS: FAMOTIDINE (20 MG) 20 MG TABLET PO SCH (08:19)
[2018-09-03] MEDS: LORAZEPAM 0.5 MG TABLET PO PRN ×2 (08:19→15:05)
[2018-09-03] MEDS: DOCUSATE SODIUM 100 MG CAPSULE PO SCH ×2 (08:19→16:53)
[2018-09-03] MEDS: FERROUS SULFATE (325 MG) 325 MG/TAB TABLET PO SCH ×2 (08:19→16:53)
--- NOTE | 2018-09-03 08:30 | NUR ---
gps screen printer: notes neurontin 300mg dose not available 'til 1100 per pharmacy.
[2018-09-03] MEDS: GABAPENTIN 300 MG CAPSULE PO SCH ×3 (11:21→16:53)
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
--- NOTE | 2018-09-03 14:00 | NUR ---
JOSE L received a call from doyle Buckley at [facility] Address: [address] [place] [address] stating pt will not be accepted back to facility and asked SW to refer pt to [facility]. Madeline stated that if [facility] denied referral she will place pt elsewhere.
[2018-09-03 16:00] VITALS: BP 168/90
[2018-09-03 19:56] VITALS: BP 158/81
[2018-09-03 23:00] VITALS: BP 132/70
[2018-09-03] MEDS: TEMAZEPAM 7.5 MG CAPSULE PO PRN (23:05)
[2018-09-04] MEDS: hydrALAZINE HCL 25 MG TABLET PO SCH ×3 (05:05→20:45)
[2018-09-04] MEDS: HYDROCODONE/APAP 5/325MG 1 EACH TABLET PO PRN ×2 (07:39→13:53)
--- NOTE | 2018-09-04 07:39 | NUR ---
NURSING NOTE: PT IN HER ROOM, YELLING, SCREAMING, STATING "I'M DYING, I'M IN PAIN" PAIN 10/10 LEFT HIP. REQUESTING PAIN MEDICATION. ADMINISTERED NORCO 5/325MG PO PER MD ORDER. WILL CONTINUE TO MONITOR.
[2018-09-04] MEDS: FAMOTIDINE (20 MG) 20 MG TABLET PO SCH (07:40)
[2018-09-04 08:00] VITALS: BP 141/100
[2018-09-04] MEDS: DOCUSATE SODIUM 100 MG CAPSULE PO SCH ×2 (08:13→16:31)
[2018-09-04] MEDS: OLANZAPINE 5 MG/TAB.RAPDIS PO SCH ×2 (08:13→16:31)
[2018-09-04] MEDS: FOLIC ACID 1 MG TABLET PO SCH (08:13)
[2018-09-04] MEDS: FERROUS SULFATE (325 MG) 325 MG/TAB TABLET PO SCH ×2 (08:13→16:31)
[2018-09-04] MEDS: CHOLECALCIFEROL 1,000 UNIT TABLET (VIT D3) PO SCH (08:13)
[2018-09-04] MEDS: CYANOCOBALAMIN 500 MCG TABLET PO SCH (08:13)
[2018-09-04] MEDS: GABAPENTIN 300 MG CAPSULE PO SCH ×3 (08:14→16:31)
[2018-09-04] MEDS: ASPIRIN 325 MG TABLET PO SCH (08:14)
[2018-09-04] MEDS: LORAZEPAM 0.5 MG TABLET PO PRN (08:32)
--- NOTE | 2018-09-04 08:32 | NUR ---
NURSING NOTE: PT IS IN HER ROOM, YELLING, SCREAMING, NOT EASILY REDIRECTED, REQUESTING SOMETHING FOR ANXIETY. ADMINISTERED ATIVAN 1MG PO PER MD ORDER. VS STABLE. 1;1 SITTER AT SIDE FOR SAFETY. WILL CONTINUE TO MONITOR.
--- NOTE | 2018-09-04 10:26 | NUR ---
INITIAL DISCHARGE PLAN: Patient will need alternative placement at received a call from doyle Correa at [facility] Address: [address] [place] [address] stating facility will not accept pt back. will help form a safe and proper discharge in collaboration with .
--- NOTE | 2018-09-04 13:53 | NUR ---
NURSING NOTE: PT C/O PAIN TO LEFT HIP, 8/10 PAIN. REQUESTING NORCO. ADMINISTERED NORCO 5/325MG PO PER MD ORDER. WILL CONTINUE TO MONITOR.
[2018-09-04 16:00] VITALS: BP 156/91
[2018-09-04 20:27] VITALS: BP 153/84
[2018-09-04] MEDS: TEMAZEPAM 7.5 MG CAPSULE PO PRN (21:57)
[2018-09-05] MEDS: hydrALAZINE HCL 25 MG TABLET PO SCH ×3 (06:21→20:33)
[2018-09-05] MEDS: OLANZAPINE 5 MG/TAB.RAPDIS PO SCH ×3 (08:29→16:27)
[2018-09-05] MEDS: DOCUSATE SODIUM 100 MG CAPSULE PO SCH ×2 (08:29→16:25)
[2018-09-05] MEDS: FERROUS SULFATE (325 MG) 325 MG/TAB TABLET PO SCH ×2 (08:29→16:25)
[2018-09-05] MEDS: CHOLECALCIFEROL 1,000 UNIT TABLET (VIT D3) PO SCH (08:29)
[2018-09-05] MEDS: FAMOTIDINE (20 MG) 20 MG TABLET PO SCH (08:29)
[2018-09-05] MEDS: ASPIRIN 325 MG TABLET PO SCH (08:30)
[2018-09-05] MEDS: FOLIC ACID 1 MG TABLET PO SCH (08:30)
[2018-09-05] MEDS: GABAPENTIN 300 MG CAPSULE PO SCH ×3 (08:30→16:25)
[2018-09-05] MEDS: CYANOCOBALAMIN 500 MCG TABLET PO SCH (08:30)
[2018-09-05] MEDS: HYDROCODONE/APAP 5/325MG 1 EACH TABLET PO PRN ×3 (08:32→22:03)
[2018-09-05] MEDS: LORAZEPAM 0.5 MG TABLET PO PRN ×2 (09:44→17:24)
[2018-09-05] MEDS: CEPHALEXIN MONOHYDRATE 250 MG CAPSULE PO SCH ×2 (12:45→16:27)
--- NOTE | 2018-09-05 13:48 | NUR ---
JOSE L faxed SNF referral to [facility] Address: [address] [facility], [place] [address] for review.
[2018-09-05 16:00] VITALS: BP 157/76
--- NOTE | 2018-09-05 16:17 | NUR ---
GROUP NOTES: Topic: "Goals yo have when you're discharged from the hospital?" S: "My goal is return back home, my of many years takes good care of me. This facility doesn't want me to go back home and they want me to stay at a SNF." O: pt was hyperverbal and her hands were shaking when she was speaking. Pts mood appeared anxious. A: Pt lacks insight into mental illness. Pt is cognitively impaired and unable to care for herself. P: Pt will continue milieu treatment and medication stabilization.
[2018-09-05 20:25] VITALS: BP 125/84
[2018-09-05] MEDS: TEMAZEPAM 7.5 MG CAPSULE PO PRN (20:34)
--- NOTE | 2018-09-05 20:35 | NUR ---
TOOK HER NIGHT MEDS, OFFERED TEMAZEPAM 7.5 MG CAP PO FOR SLEEPING.
[2018-09-05] MEDS: OLANZAPINE 10 MG TABLET PO SCH (21:05)
--- NOTE | 2018-09-05 22:04 | NUR ---
c/o severe back pain, norco 5/325 mg tab 1 po given.
[2018-09-06] MEDS: hydrALAZINE HCL 25 MG TABLET PO SCH ×3 (05:22→20:36)
[2018-09-06] MEDS: OLANZAPINE 5 MG/TAB.RAPDIS PO SCH ×3 (07:25→16:54)
[2018-09-06 08:00] VITALS: BP 160/81
[2018-09-06] MEDS: FOLIC ACID 1 MG TABLET PO SCH (08:22)
[2018-09-06] MEDS: CHOLECALCIFEROL 1,000 UNIT TABLET (VIT D3) PO SCH (08:23)
[2018-09-06] MEDS: FAMOTIDINE (20 MG) 20 MG TABLET PO SCH (08:23)
[2018-09-06] MEDS: DOCUSATE SODIUM 100 MG CAPSULE PO SCH ×2 (08:23→16:54)
[2018-09-06] MEDS: FERROUS SULFATE (325 MG) 325 MG/TAB TABLET PO SCH ×2 (08:23→16:54)
[2018-09-06] MEDS: GABAPENTIN 300 MG CAPSULE PO SCH ×3 (08:23→16:54)
[2018-09-06] MEDS: CYANOCOBALAMIN 500 MCG TABLET PO SCH (08:23)
[2018-09-06] MEDS: ASPIRIN 325 MG TABLET PO SCH (08:23)
[2018-09-06] MEDS: CEPHALEXIN MONOHYDRATE 250 MG CAPSULE PO SCH ×3 (08:23→16:54)
[2018-09-06] MEDS: LORAZEPAM 0.5 MG TABLET PO PRN ×2 (08:25→19:41)
--- NOTE | 2018-09-06 08:30 | NUR ---
GPS/RN-NOTES NOTED PATIENT VERY ANXIOUS ,SCREAMING AND YELLING " HELP ME I'M SICK ,I'M SICK".PATIENT REQUESTING FOR ATIVAN. ATIVAN 1MG P.O GIVEN PRN ORDER. ON 1:1 MONITORING FOR SAFETY AND BEHAVIOR.
--- NOTE | 2018-09-06 10:18 | NUR ---
RN-CO: Patient is calmer, compliant to care, participating in groups. Discontinued 1:1 sitter.
[2018-09-06] MEDS: HYDROCODONE/APAP 5/325MG 1 EACH TABLET PO PRN ×2 (14:31→22:34)
--- NOTE | 2018-09-06 14:32 | NUR ---
GPS/RN-NOTES PATIENT C/O 01/19 LEFT HIP AND REQUESTING NORCO. NORCO 5/325MG 1 TAB. P-.O GIVEN PRN ORDER. WILL CONT. MONITORING FOR SAFETY.
[2018-09-06] MEDS ORDERED: DIVALPROEX SODIUM 250 MG TABLET.DR PO SCH (14:33)
[2018-09-06] MEDS: DIVALPROEX SODIUM 125 MG TABLET.DR PO SCH ×2 (14:45→19:41)
[2018-09-06 16:00] VITALS: BP 150/84
--- NOTE | 2018-09-06 19:42 | NUR ---
C/O ANXIETY FEELING, ATIVAN 1 MG PO GIVEN
[2018-09-06 20:00] VITALS: BP 158/81
[2018-09-06] MEDS: TEMAZEPAM 7.5 MG CAPSULE PO PRN (20:37)
--- NOTE | 2018-09-06 20:39 | NUR ---
RESTORIL 7.5 MG CAP PO GIVEN.
[2018-09-06] MEDS: OLANZAPINE 10 MG TABLET PO SCH (21:22)
--- NOTE | 2018-09-06 22:35 | NUR ---
C/O SEVERE BACK PAIN, 8/10 ON PAIN SCALE, NORCO 5/325 MG TAB PO GIVEN.
[2018-09-07] MEDS: hydrALAZINE HCL 25 MG TABLET PO SCH ×3 (05:00→20:29)
--- NOTE | 2018-09-07 05:16 | NUR ---
BP NOW 150/45, HR 64, HYDRALAZINE 25 MG TAB NOT GIVEN
[2018-09-07] MEDS: OLANZAPINE 5 MG/TAB.RAPDIS PO SCH ×3 (06:19→17:11)
[2018-09-07 08:00] VITALS: BP 164/91
--- NOTE | 2018-09-07 08:19 | NUR ---
SW received a call from doyle Vidal at [facility] Address: [address] [facility] [place] [address] stating pts referral was denied.
--- NOTE | 2018-09-07 08:20 | NUR ---
JOSE L faxed SNF referral to CJ, event marketing coordinator at [facility] Address: [address] [place] [address] for review.
[2018-09-07] MEDS: FAMOTIDINE (20 MG) 20 MG TABLET PO SCH (08:27)
[2018-09-07] MEDS: ASPIRIN 325 MG TABLET PO SCH (08:28)
[2018-09-07] MEDS: DOCUSATE SODIUM 100 MG CAPSULE PO SCH ×2 (08:28→17:11)
[2018-09-07] MEDS: CYANOCOBALAMIN 500 MCG TABLET PO SCH (08:28)
[2018-09-07] MEDS: GABAPENTIN 300 MG CAPSULE PO SCH ×3 (08:28→17:11)
[2018-09-07] MEDS: CHOLECALCIFEROL 1,000 UNIT TABLET (VIT D3) PO SCH (08:28)
[2018-09-07] MEDS: DIVALPROEX SODIUM 125 MG TABLET.DR PO SCH ×3 (08:28→20:23)
[2018-09-07] MEDS: CEPHALEXIN MONOHYDRATE 250 MG CAPSULE PO SCH (08:28)
[2018-09-07] MEDS: FOLIC ACID 1 MG TABLET PO SCH (08:28)
[2018-09-07] MEDS: FERROUS SULFATE (325 MG) 325 MG/TAB TABLET PO SCH ×2 (08:28→17:11)
--- NOTE | 2018-09-07 09:55 | NUR ---
GPS/RN-NOTES RECEIVED VERBAL ORDER FROM DR. BENDER OF BACTRIM DS 1 TAB.P.O BID FOR 7DAYS. ALSO TO D/C KEFLEX ORDER. NOTED AND CARRIED OUT. PATIENT WAS PUT ON CONTACT ISOLATION.
--- NOTE | 2018-09-07 12:30 | NUR ---
SW received a call from WILL, iso coordinator at [facility] Address: [address] [place] [address] stating pts previous SNF used all her MEDICARE SNF days and therefore unable to accept pt.
--- NOTE | 2018-09-07 12:31 | NUR ---
JOSE L contacted doyle Correa at [facility] Address: [address] [place] [address] to inform her they have used all of her MEDICARE SNF days and therefore no other facility will accept pt. Madeline requested SW send paperwork for pt. JOSE L faxed pts clinical information.
[2018-09-07] MEDS ORDERED: AMOXICILLIN TRIHYDRATE 500 MG CAPSULE PO SCH (13:30)
[2018-09-07] MEDS ORDERED: AMOX/CLAVULANATE 250 MG TABLET PO SCH (14:00)
--- NOTE | 2018-09-07 14:15 | NUR ---
JOSE L contacted doyle Correa at [facility] Address: [address] [place] [address] Hare has ordered discharge for Monday09/08/18 as pt is still on a bed hold. JOSE L also informed her pt needs an isolation room as pt is currently taking antibiotics for ESBL. She stated they have an isolation room available.
--- NOTE | 2018-09-07 14:54 | NUR ---
DISCHARGE NOTE: Pt will be discharged on Saturday September 08, 2018 at 11:30am via [id number] trip#[phone] to [facility] Address: [address] [place] [address] . Pts mood is euthymic with congruent affect. Pt denied suicidal/homicidal ideation and denied visual/auditory hallucinations. Pt will be under the care of Psychiatrist: Dr. Key Hare [address], [place] [address] [phone] Donation Worker: Dr. Emanuel Little Address: [address] [facility] [address], [place] [address] . The multidisciplinary exitcare form was done, printed, signed, and given to the patient.
[2018-09-07] MEDS: HYDROCODONE/APAP 5/325MG 1 EACH TABLET PO PRN (15:56)
--- NOTE | 2018-09-07 15:57 | NUR ---
GPS/RN-NOTES PATIENT C/O 01/19 LEFT HIP AND REQUESTING NORCO. NORCO 5/325MG 1 TAB. P-.O GIVEN PRN ORDER. WILL CONT. MONITORING FOR SAFETY.
[2018-09-07 16:00] VITALS: BP 155/90
--- NOTE | 2018-09-07 16:00 | NUR ---
GPS/RN-NOTES PATIENT PURPOSELY SITS ON THE FLOOR IN FRONT THE NURSE STATION AND WAS WITNESS BY THE SALES OPERATIONS SPECIALIST STAFF.PATIENT STATED" I JUST WANT MY PAIN PILL". PATIENT WAS ASSISTED BACK TO HER ROOM.PRN PAIN MEDICATIONS GIVEN ORDERED.
--- NOTE | 2018-09-07 16:30 | NUR ---
GPS/RN-NOTES PATIENT IN THE DAY ROOM AWAKE,ALERT INTERACTING WITH ADAM(MALE FRIEND),NO ACUTE DISTRESS NOTED. ENDORSE TO NEXT SHIFT FOR CONTINUITY OF CARE.
[2018-09-07] MEDS: SULFAMETH/TRIMETH 800/160 MG 1 UDTAB TABLET PO SCH (17:11)
[2018-09-07 20:00] VITALS: BP_SYST 137; BP_SYST 95; BP_DIAS 56; BP_DIAS 73
[2018-09-07] MEDS: LORAZEPAM 0.5 MG TABLET PO PRN (20:21)
--- NOTE | 2018-09-07 20:22 | NUR ---
ATIVAN 1 MG TAB PO GIVEN FOR ANXIETY
[2018-09-07] MEDS: AMOXICILLIN TRIHYDRATE 250 MG CAPSULE PO SCH (20:28)
[2018-09-07] MEDS: OLANZAPINE 10 MG TABLET PO SCH (21:01)
[2018-09-07] MEDS: TEMAZEPAM 7.5 MG CAPSULE PO PRN (22:30)
--- NOTE | 2018-09-07 22:30 | NUR ---
C/O INSOMNIA, RESTORIL 7.5 MG PO GIVEN.
[2018-09-08] MEDS: hydrALAZINE HCL 25 MG TABLET PO SCH ×2 (05:17→12:23)
[2018-09-08 06:10] VITALS: BP 102/64
[2018-09-08] MEDS: OLANZAPINE 5 MG/TAB.RAPDIS PO SCH ×2 (06:15→12:23)
[2018-09-08 07:44] LABS: BASOPHILS # (AUTO) 0.1 /CMM (0.0-0.2); BASOPHILS % (AUTO) 1.5 % (0.0-2.0); EOSINOPHILS % (AUTO) 1.8 % (0.0-6.0); HEMATOCRIT 36 % (33-45); HEMOGLOBIN 12.2 g/dL (11.5-14.8); LYMPHOCYTES # (AUTO) 1.4 /CMM (0.8-4.8); LYMPHOCYTES % (AUTO) 27.7 % (20.0-44.0); MEAN CORPUSCULAR HGB CONC 34 g/dl (31.0-36.0); MEAN CORPUSCULAR VOLUME 96 fL (82-100); MONOCYTES # (AUTO) 0.5 /CMM (0.1-1.30); NEUTROPHILS # (AUTO) 2.9 /CMM (1.8-8.9); PLATELET COUNT (AUTO) 254 /CMM (150-450); RED BLOOD CELL COUNT(AUTO) 3.77 MIL/uL (4.0-5.2); WHITE BLOOD COUNT (AUTO) 4.9 K/uL (4.3-11.0)
[2018-09-08 08:00] VITALS: BP 162/83
[2018-09-08 08:03] LABS: ALANINE AMINOTRANSFERASE 21 U/L (12-78); ALBUMIN 3.3 g/dL (3.4-5.0); ALKALINE PHOSPHATASE 85 U/L (46-116); ASPARTATE AMINOTRANSFERASE 11 U/L (15-37); BILIRUBIN,TOTAL 0.4 mg/dL (0.2-1.0); CALCIUM, SERUM 8.7 mg/dL (8.5-10.1); CARBON DIOXIDE 30 mmol/L (21-32); CHLORIDE 108 mmol/L (98-107); CREATININE 0.5 mg/dL (0.6-1.3); GLUCOSE 102 mg/dL (74-106); SODIUM SERUM 144 mmol/L (136-145); TOTAL PROTEIN, SERUM 6.4 g/dL (6.4-8.2); UREA NITROGEN, BLOOD 18 mg/dL (7-18)
[2018-09-08 08:32] LABS: VALPROIC ACID 37 ug/mL (50-100)
--- NOTE | 2018-09-08 08:52 | NUR ---
CALLED [facility] AND SPOKE TO THE MANAGER TECHNICAL TRAINING DEMARIO AND SAID THEY WILL ACCEPT THE PT. TODAY.
[2018-09-08] MEDS: AMOXICILLIN TRIHYDRATE 250 MG CAPSULE PO SCH ×2 (08:55→12:19)
[2018-09-08] MEDS: GABAPENTIN 300 MG CAPSULE PO SCH ×2 (08:55→12:19)
[2018-09-08] MEDS: ASPIRIN 325 MG TABLET PO SCH (08:56)
[2018-09-08] MEDS: FAMOTIDINE (20 MG) 20 MG TABLET PO SCH (08:56)
[2018-09-08] MEDS: CHOLECALCIFEROL 1,000 UNIT TABLET (VIT D3) PO SCH (08:56)
[2018-09-08] MEDS: DIVALPROEX SODIUM 125 MG TABLET.DR PO SCH (08:57)
[2018-09-08] MEDS: FOLIC ACID 1 MG TABLET PO SCH (08:57)
[2018-09-08] MEDS: DOCUSATE SODIUM 100 MG CAPSULE PO SCH (08:57)
[2018-09-08] MEDS: FERROUS SULFATE (325 MG) 325 MG/TAB TABLET PO SCH (08:57)
[2018-09-08] MEDS: SULFAMETH/TRIMETH 800/160 MG 1 UDTAB TABLET PO SCH (08:57)
[2018-09-08] MEDS: CYANOCOBALAMIN 500 MCG TABLET PO SCH (08:57)
[2018-09-08] MEDS: HYDROCODONE/APAP 5/325MG 1 EACH TABLET PO PRN (09:04)
--- NOTE | 2018-09-08 09:04 | NUR ---
RN NOTES ADMINISTERED NARCO 5/325 MG PO PRN FOR CHRONIC PAIN ON LEFT HIP 02/19 PER PATIENT REQUEST, V/S TAKEN BP162/83, P-67, CONTINUED MONITORING.
[2018-09-08] MEDS: LORAZEPAM 0.5 MG TABLET PO PRN (11:34)
--- NOTE | 2018-09-08 11:34 | NUR ---
RN NOTES ADMINISTERED TYLENOL 650 MG PO PRN FOR PAIN ON LEFT HIP 10/19, AND ATIVAN 1 MG PO PRN FOR ANXIETY PER PATIENT REQUEST, CONTINUED MONITORING.
[2018-09-08 12:23] VITALS: BP 136/56
--- NOTE | 2018-09-08 12:56 | NUR ---
CORE RESCUER NOTES PATIENT DISCHARGE AT THIS TIME GOING SNF. PATIENT A/O X4. STABLE, MED COMPLIANT, NO ACUTE RESPIRATORY DISTRESS. MED RECONCILIATION AND DISCHARGE ORDER REVIEWED AND EXPLAINED TO PATIENT, AND . REPORT GIVEN SNF RN DEMARIO. RN VERBALIZED UNDERSTANDING. BELONGING RETURNED BACK TO THE PATIENT. PATIENT DENIED SI/HI/AVH AT THIS TIME. PATIENT WILL FOLLOW SNF DIRECTOR LONG TERM CARE, AND PSYCHIATRIST. PATIENT CASH APPLICATIONS ANALYST BY THE AMBULANCE..
== END 2018-09-08 12:55 | DRG 885 ==
LOC: ER 18:39 → GPS 20:38
PROVIDERS: ADMIT Psychiatry & Neurology Psychiatry; ATTEND Psychiatry & Neurology Psychosomatic Medicine
DX: F25.0 Schizoaffective disorder, bipolar type (principal); F01.50 Vascular dementia, unspecified severity, without behavioral disturbance, psychotic disturbance, mood disturbance, and anxiety; N17.9 Acute kidney failure, unspecified; B95.2 Enterococcus as the cause of diseases classified elsewhere; N39.0 Urinary tract infection, site not specified; F23 Brief psychotic disorder; E78.5 Hyperlipidemia, unspecified; G89.4 Chronic pain syndrome; I10 Essential (primary) hypertension; K21.9 Gastro-esophageal reflux disease without esophagitis; F41.9 Anxiety disorder, unspecified; M19.90 Unspecified osteoarthritis, unspecified site; E86.0 Dehydration; Z87.440 Personal history of urinary (tract) infections; R31.29 Other microscopic hematuria; E03.9 Hypothyroidism, unspecified; Z73.6 Limitation of activities due to disability; B96.20 Unspecified Escherichia coli [E. coli] as the cause of diseases classified elsewhere; Z16.12 Extended spectrum beta lactamase (ESBL) resistance; F19.90 Other psychoactive substance use, unspecified, uncomplicated; F10.21 Alcohol dependence, in remission; Z79.891 Long term (current) use of opiate analgesic
CPT/HCPCS: 36415; 73502; 80048-TC; 80053-TC; 80061-TC; 80076-TC; 80164-TC; 81000-TC; 82962-TC; 84443-TC; 85025-TC; 85730-TC; 87081-TC; 87086-TC; 87186-TC; G0480; J1200; J2060; J3486; J3490

== ENCOUNTER 2019-10-27 10:11 | Emergency (ER) | payer MEDICARE, OTHER ==
[~2019-10-27] VITALS: Ht 157.5 cm; Wt 64.4 kg
[~2019-10-27 10:11] MED LIST changes: +ACET-2605 PO; +CHOL100044 PO; +CYAN-51 PO; +DOCU-141 PO; -DULO60CA63 PO; +DULO60CA64 PO; -TEMA15CA PO; -ZOLP5TAB2 PO
--- NOTE | 2019-10-27 10:30 | NUR ---
kevin, from snf, sent by PMD due to abnormal lab K 2.9. Patient a/ox1-2, breathing even and unlabored, nos ob noted, needs attended, attached to the satellite project site monitor. Kept comfortable.
[2019-10-27 10:43] LABS: BASOPHILS % (AUTO) 0.9 % (0.0-2.0); EOSINOPHILS % (AUTO) 0.9 % (0.0-6.0); HEMATOCRIT 39 % (33-45); HEMOGLOBIN 12.9 g/dL (11.5-14.8); LYMPHOCYTES % (AUTO) 21.2 % (20.0-44.0); MEAN CORPUSCULAR HGB CONC 33 g/dl (31.0-36.0); MEAN CORPUSCULAR VOLUME 95 fL (82-100); MONOCYTES # (AUTO) 0.4 /CMM (0.1-1.30); MONOCYTES % (AUTO) 9.8 % (2.0-12.0); NEUTROPHILS # (AUTO) 3.1 /CMM (1.8-8.9); NEUTROPHILS % (AUTO) 67.2 % (43.0-81.0); PLATELET COUNT (AUTO) 229 /CMM (150-450); WHITE BLOOD COUNT (AUTO) 4.6 K/uL (4.3-11.0)
[2019-10-27 10:49] LABS: CALCIUM, SERUM 8.5 mg/dL (8.5-10.1); CARBON DIOXIDE 33 mmol/L (21-32); CHLORIDE 109 mmol/L (98-107); CREATININE 0.5 mg/dL (0.6-1.3); GLUCOSE 99 mg/dL (74-106); POTASSIUM 3.4 mmol/L (3.5-5.1); SODIUM SERUM 145 mmol/L (136-145); UREA NITROGEN, BLOOD 23 mg/dL (7-18)
[2019-10-27 11:02] LABS: ALANINE AMINOTRANSFERASE 25 U/L (12-78); ALBUMIN 2.8 g/dL (3.4-5.0); ALKALINE PHOSPHATASE 67 U/L (46-116); ASPARTATE AMINOTRANSFERASE 21 U/L (15-37); B-TYPE NATRIURETIC PEPTIDE 359 PG/ML (0-125); BILIRUBIN,DIRECT 0.1 mg/dL (0.0-0.2); BILIRUBIN,TOTAL 0.3 mg/dL (0.2-1.0); TOTAL PROTEIN, SERUM 6.6 g/dL (6.4-8.2)
--- NOTE | 2019-10-27 11:17 | NUR ---
report given to Sisi Mayfield at [facility].
--- NOTE | 2019-10-27 11:17 | NUR ---
CALLED AM MARTHA ETA IS 1200 PER MICHELE.
--- NOTE | 2019-10-27 12:16 | NUR ---
Report given to GREEN WARE CASTER. Patient a/ox2-3, breathing even and unlabored, no sob noted, no distress noted. IV removed. Catheter intact and site benign. Pressure and 4x4 applied to site. No bleeding noted.Patient discharged to SNF in stable condition. Written and verbal after care instructions given. Patient verbalizes understanding of instruction.
[2019-10-27 12:17] VITALS: BP 169/79
== END 2019-10-27 12:17 ==
LOC: ER 10:15
DX: R79.9 Abnormal finding of blood chemistry, unspecified (principal); I10 Essential (primary) hypertension; E03.9 Hypothyroidism, unspecified; Z88.1 Allergy status to other antibiotic agents; Z60.2 Problems related to living alone; Z79.82 Long term (current) use of aspirin; Z79.899 Other long term (current) drug therapy
CPT/HCPCS: 36415; 71045-TC; 80048-TC; 80076-TC; 83880; 84484-TC; 85025-TC; 85730-TC